=== PATIENT | female | born 1935 | race Caucasian/White ===

== ENCOUNTER 2016-09-01 14:06 | Inpatient (IN) | payer MEDICARE, MEDICAID ==
[~2016-09-01] VITALS: Ht 170.2 cm; Wt 74.8 kg
[~2016-09-01 14:06] MED LIST: BLOOD PRESSURE; PAIN MEDICATION
[2016-09-01] MEDS ORDERED: IV NS 0.9% 500 ML BAG IV ONE ×2 (14:30→16:00)
[2016-09-01] MEDS ORDERED: ACETAMINOPHEN 650 MG/SUPP.RECT RC ONE (14:30)
[2016-09-01] MEDS ORDERED: IV SET PRIMARY 1 EA INFUS.SET MC ONE (14:41)
[2016-09-01] MEDS ORDERED: IV NS 0.9% 500 ML IV ONE ×3 (14:41→16:22)
[2016-09-01 14:48] LABS: BASOPHILS # (AUTO) 0.1 /CMM (0.0-0.2); BASOPHILS % (AUTO) 1.1 % (0.0-2.0); DIFF TOTAL % 100 %; HEMATOCRIT 34 % (33-45); HEMOGLOBIN 11.1 g/dL (11.5-14.8); LYMPHOCYTES # (AUTO) 0.1 /CMM (0.8-4.8); LYMPHOCYTES % (AUTO) 0.9 % (20.0-44.0); MEAN CORPUSCULAR HEMOGLOBIN 28 PG (26.0-33.0); MEAN CORPUSCULAR HGB CONC 33 g/dl (31.0-36.0); MEAN CORPUSCULAR VOLUME 86 fL (82-100); MONOCYTES # (AUTO) 0.1 /CMM (0.1-1.30); MONOCYTES % (AUTO) 0.6 % (2.0-12.0); NEUTROPHILS # (AUTO) 12.1 /CMM (1.8-8.9); NEUTROPHILS % (AUTO) 97.4 % (43.0-81.0); PLATELET COUNT (AUTO) 274 /CMM (150-450); RED BLOOD CELL COUNT(AUTO) 3.96 MIL/uL (4.0-5.2); WHITE BLOOD COUNT (AUTO) 12.4 K/uL (4.3-11.0)
[2016-09-01 15:01] LABS: KETONES,URINE TRACE (NEGATIVE); LEUKOCYTE ESTERASE ,URINE NEGATIVE (NEGATIVE)
[2016-09-01 15:02] LABS: ADD UA MICROSCOPIC YES
[2016-09-01 15:06] LABS: TROPONIN I 0.062 ng/mL (0.00-0.056)
[2016-09-01 15:08] LABS: ADD URINE CULTURE NO; RBC,URINE 51-80 /HPF (0-2); WBC,URINE 0-2 /HPF (0-3)
[2016-09-01 15:09] LABS: INR 1.14 (0.87-1.13); PROTHROMBIN TIME 12.3 SECS (9.5-12.7)
[2016-09-01 15:14] LABS: ALBUMIN 2.8 g/dL (3.4-5.0); BILIRUBIN,DIRECT 0.1 mg/dL (0.0-0.2); BILIRUBIN,TOTAL 0.4 mg/dL (0.2-1.0); CALCIUM, SERUM 8.3 mg/dL (8.5-10.1); CREATININE 1.2 mg/dL (0.6-1.3); INDIRECT BILIRUBIN 0.3 mg/dL (0.0-1.1); POTASSIUM 3.3 mmol/L (3.5-5.1); TOTAL PROTEIN, SERUM 7.4 g/dL (6.4-8.2)
[2016-09-01 15:32] LABS: LACTIC ACID 1.2 mmol/L (0.4-2.0)
[2016-09-01] MEDS ORDERED: IV SET PRIMARY PUMP SET 1 EA INFUS.SET MC ONE ×2 (15:54→20:52)
[2016-09-01] MEDS ORDERED: PIPERACILLIN /TAZOBACTAM 3.375 G in IV D5W 50 ML IV ONE (16:00)
[2016-09-01] MEDS ORDERED: LEVOFLOXACIN 750 MG /D5W 150ML 150 ML IV ONE ×2 (16:00→16:22)
[2016-09-01] MEDS ORDERED: IV NS 0.9% 1,000 ML IV PRN (16:28)
[2016-09-01] MEDS ORDERED: MORPHINE SULFATE INJ 2 MG/ML DISP.SYRIN IV PRN (16:30)
[2016-09-01] MEDS ORDERED: Z GUARD REMEDY 2 OZ OINT TP PRN (16:30)
[2016-09-01] MEDS ORDERED: ACETAMINOPHEN 325 MG TABLET PO PRN (16:30)
[2016-09-01] MEDS ORDERED: ONDANSETRON HCL/PF 4 MG/2 ML VIAL IVP PRN (16:30)
[2016-09-01] MEDS ORDERED: PIPERACILLIN /TAZOBACTAM 3.375 G in IV D5W 50 ML IV SCH (18:00)
[2016-09-01] MEDS ORDERED: FEE PK DOSING 1 MIN EA MC ONE (18:51)
[2016-09-01 20:00] VITALS: BP 147/88
[2016-09-01] MEDS ORDERED: VANCOMYCIN 1 GM in IV D5W 250 ML IV ONE (20:00)
[2016-09-01] MEDS ORDERED: RISP1TAB PO (20:25)
[2016-09-01] MEDS ORDERED: IV NS 0.9% 1,000 ML ONE (20:52)
[2016-09-01] MEDS ORDERED: SECONDARY IV SET 1 EA INFUS.SET MC ONE (20:52)
[2016-09-01] MEDS ORDERED: ONDANSETRON HCL/PF 4 MG/2 ML VIAL IV PRN (21:00)
[2016-09-01] MEDS ORDERED: IV NS 0.9% 1,000 ML IV ONE (21:00)
[2016-09-01] MEDS ORDERED: LEVOFLOXACIN 500 MG /D5W 100ML 500 MG in PREMIX 1 EA IV SCH (21:00)
[2016-09-01 21:32] VITALS: BP 147/88
[2016-09-02] VITALS (9 sets, daily range): BP systolic 123–150; BP diastolic 65–79
[2016-09-02] MEDS ORDERED: PIPERACILLIN /TAZOBACTAM 2.25 G in IV D5W 50 ML IV SCH ×2
[2016-09-02] MEDS ORDERED: IPRATROPIUM NEB FS 0.5 MG/2.5 ML AMPUL.NEB NEB PRN (00:30)
[2016-09-02] MEDS ORDERED: ALBUTEROL FS 2.5 MG/0.5 ML VIAL.NEB NEB PRN (00:30)
[2016-09-02] MEDS ORDERED: LEVOFLOXACIN 500 MG /D5W 100ML 500 MG in PREMIX 1 EA IV SCH ×2 (06:00→16:00)
[2016-09-02 08:36] LABS: BASOPHILS % (AUTO) 0.1 % (0.0-2.0); DIFF TOTAL % 100 %; HEMATOCRIT 33 % (33-45); HEMOGLOBIN 10.9 g/dL (11.5-14.8); LYMPHOCYTES # (AUTO) 0.5 /CMM (0.8-4.8); LYMPHOCYTES % (AUTO) 3.5 % (20.0-44.0); MEAN CORPUSCULAR HEMOGLOBIN 29 PG (26.0-33.0); MEAN CORPUSCULAR HGB CONC 34 g/dl (31.0-36.0); MEAN CORPUSCULAR VOLUME 87 fL (82-100); MONOCYTES # (AUTO) 0.2 /CMM (0.1-1.30); MONOCYTES % (AUTO) 1.6 % (2.0-12.0); NEUTROPHILS # (AUTO) 14.7 /CMM (1.8-8.9); NEUTROPHILS % (AUTO) 94.8 % (43.0-81.0); PLATELET COUNT (AUTO) 240 /CMM (150-450); RED BLOOD CELL COUNT(AUTO) 3.78 MIL/uL (4.0-5.2); WHITE BLOOD COUNT (AUTO) 15.5 K/uL (4.3-11.0)
[2016-09-02] MEDS: PANTOPRAZOLE 40 MG TABLET.DR PO SCH (08:37)
[2016-09-02] MEDS: risperiDONE 1 MG TABLET PO SCH ×2 (08:37→18:11)
[2016-09-02] MEDS: LOSARTAN POTASSIUM 50 MG TABLET PO SCH (08:38)
[2016-09-02] MEDS: METOPROLOL TARTRATE 50 MG TABLET PO SCH ×2 (08:38→18:13)
[2016-09-02] MEDS: SOLIFENACIN SUCCINATE 5 MG TABLET PO SCH (08:38)
[2016-09-02] MEDS ORDERED: PANTOPRAZOLE 40 MG VIAL IV SCH (09:00)
[2016-09-02 09:28] LABS: BAND % (MANUAL) 20 % (0.0-5.0); LYMPHOCYTES % (MANUAL) 10 % (16-48)
[2016-09-02 09:29] LABS: PLATELET ESTIMATE ADEQUATE
[2016-09-02 10:53] LABS: CALCIUM, SERUM 8.4 mg/dL (8.5-10.1); CREATININE 1.2 mg/dL (0.6-1.3); PHOSPHORUS 2.8 mg/dL (2.5-4.9)
[2016-09-02 11:16] LABS: POTASSIUM 3.2 mmol/L (3.5-5.1)
[2016-09-02] MEDS ORDERED: SECONDARY IV SET 1 EA INFUS.SET MC ONE (13:27)
[2016-09-02] MEDS: Magnesium 1GM/D5W 100ML PREMIX 100 ML IV SCH ×2 (13:34→14:38)
[2016-09-02] MEDS: POTASSIUM CHLORIDE 20 MEQ TAB.PRT.SR PO SCH ×2 (13:34→14:37)
[2016-09-02] MEDS: VANCOMYCIN 0.75 GM in IV D5W 250 ML IV SCH (15:52)
[2016-09-02] MEDS ORDERED: IV NS 0.9% 1,000 ML BAG IV PRN (18:00)
[2016-09-02] MEDS ORDERED: Z GUARD REMEDY 2 OZ OINT TP PRN (19:30)
[2016-09-02] MEDS: IV NS 0.9% 1,000 ML IV PRN (23:27)
[2016-09-03] VITALS (7 sets, daily range): BP systolic 111–151; BP diastolic 62–84
[2016-09-03 07:41] LABS: POTASSIUM 3.4 mmol/L (3.5-5.1)
[2016-09-03] MEDS: LOSARTAN POTASSIUM 50 MG TABLET PO SCH (08:16)
[2016-09-03] MEDS: SOLIFENACIN SUCCINATE 5 MG TABLET PO SCH (08:16)
[2016-09-03] MEDS: PANTOPRAZOLE 40 MG TABLET.DR PO SCH (08:17)
[2016-09-03] MEDS: risperiDONE 1 MG TABLET PO SCH ×2 (08:17→16:11)
[2016-09-03] MEDS: METOPROLOL TARTRATE 50 MG TABLET PO SCH ×2 (08:17→16:10)
[2016-09-03] MEDS: VANCOMYCIN 0.75 GM in IV D5W 250 ML IV SCH ×2 (08:19→21:09)
[2016-09-03] MEDS ORDERED: Z GUARD REMEDY 2 OZ OINT TP PRN (10:30)
[2016-09-03] MEDS: CLOTRIMAZOLE 1% 15 GM TUBE TP SCH ×2 (11:50→16:11)
[2016-09-03] MEDS: IV NS 0.9% 1,000 ML IV PRN (12:16)
[2016-09-03] MEDS ORDERED: POTASSIUM CHLORIDE 20 MEQ POWDER PACKET PO SCH (13:00)
[2016-09-03 13:16] LABS: BASOPHILS % (AUTO) 0.2 % (0.0-2.0); DIFF TOTAL % 100 %; EOSINOPHILS % (AUTO) 0.2 % (0.0-6.0); HEMATOCRIT 28 % (33-45); HEMOGLOBIN 9.4 g/dL (11.5-14.8); LYMPHOCYTES # (AUTO) 0.6 /CMM (0.8-4.8); LYMPHOCYTES % (AUTO) 4.3 % (20.0-44.0); MEAN CORPUSCULAR HEMOGLOBIN 29 PG (26.0-33.0); MEAN CORPUSCULAR HGB CONC 34 g/dl (31.0-36.0); MEAN CORPUSCULAR VOLUME 86 fL (82-100); MONOCYTES # (AUTO) 0.3 /CMM (0.1-1.30); MONOCYTES % (AUTO) 2.3 % (2.0-12.0); NEUTROPHILS # (AUTO) 13.4 /CMM (1.8-8.9); PLATELET COUNT (AUTO) 249 /CMM (150-450); RED BLOOD CELL COUNT(AUTO) 3.25 MIL/uL (4.0-5.2); WHITE BLOOD COUNT (AUTO) 14.4 K/uL (4.3-11.0)
[2016-09-03] MEDS: ENOXAPARIN SODIUM 40 MG/0.4 ML DISP.SYRIN SQ SCH (14:34)
[2016-09-03] MEDS ORDERED: LEVOFLOXACIN 750 MG /D5W 150ML 750 MG in PREMIX 1 EA IV SCH (16:00)
[2016-09-03] MEDS ORDERED: SECONDARY IV SET 1 EA INFUS.SET MC ONE (16:11)
[2016-09-03] MEDS: Z GUARD REMEDY 2 OZ OINT TP SCH (16:12)
[2016-09-03] MEDS: ACETAMINOPHEN 325 MG TABLET PO PRN (16:14)
[2016-09-04] VITALS: BP 141/62
[2016-09-04 04:00] VITALS: BP 145/70
[2016-09-04] MEDS: IV NS 0.9% 1,000 ML IV PRN ×2 (04:34→20:17)
[2016-09-04 08:00] VITALS: BP 134/62
[2016-09-04 09:13] LABS: BASOPHILS # (AUTO) 0.1 /CMM (0.0-0.2); BASOPHILS % (AUTO) 0.9 % (0.0-2.0); DIFF TOTAL % 100 %; EOSINOPHILS # (AUTO) 0.1 /CMM (0.0-0.7); EOSINOPHILS % (AUTO) 0.8 % (0.0-6.0); HEMATOCRIT 27 % (33-45); HEMOGLOBIN 9.1 g/dL (11.5-14.8); LYMPHOCYTES # (AUTO) 0.6 /CMM (0.8-4.8); LYMPHOCYTES % (AUTO) 4.9 % (20.0-44.0); MEAN CORPUSCULAR HEMOGLOBIN 29 PG (26.0-33.0); MEAN CORPUSCULAR HGB CONC 34 g/dl (31.0-36.0); MEAN CORPUSCULAR VOLUME 86 fL (82-100); MONOCYTES # (AUTO) 0.4 /CMM (0.1-1.30); MONOCYTES % (AUTO) 3.5 % (2.0-12.0); NEUTROPHILS % (AUTO) 89.9 % (43.0-81.0); PLATELET COUNT (AUTO) 252 /CMM (150-450); RED BLOOD CELL COUNT(AUTO) 3.14 MIL/uL (4.0-5.2); WHITE BLOOD COUNT (AUTO) 12.3 K/uL (4.3-11.0)
[2016-09-04 09:37] LABS: CALCIUM, SERUM 7.9 mg/dL (8.5-10.1); PHOSPHORUS 2.3 mg/dL (2.5-4.9); POTASSIUM 3.6 mmol/L (3.5-5.1)
[2016-09-04] MEDS: ENOXAPARIN SODIUM 40 MG/0.4 ML DISP.SYRIN SQ SCH (10:04)
[2016-09-04] MEDS: SOLIFENACIN SUCCINATE 5 MG TABLET PO SCH (10:05)
[2016-09-04] MEDS: risperiDONE 1 MG TABLET PO SCH ×2 (10:05→17:48)
[2016-09-04] MEDS: LOSARTAN POTASSIUM 50 MG TABLET PO SCH (10:08)
[2016-09-04] MEDS: PANTOPRAZOLE 40 MG TABLET.DR PO SCH (10:08)
[2016-09-04] MEDS: METOPROLOL TARTRATE 50 MG TABLET PO SCH ×2 (10:09→17:53)
[2016-09-04] MEDS: VANCOMYCIN 0.75 GM in IV D5W 250 ML IV SCH ×2 (10:10→20:54)
[2016-09-04] MEDS: CLOTRIMAZOLE 1% 15 GM TUBE TP SCH ×2 (10:11→17:53)
[2016-09-04] MEDS: Z GUARD REMEDY 2 OZ OINT TP SCH ×2 (10:12→17:53)
[2016-09-04 15:27] VITALS: BP 123/79
[2016-09-04 16:00] VITALS: BP 148/86
[2016-09-04] MEDS ORDERED: NEUTRA PHOS 1 POWD.PACKET PO ONE (16:00)
[2016-09-04] MEDS: LACTOBACILLUS RHAMNOSUS GG 1 EACH CAP.SPRINK PO SCH (17:53)
[2016-09-04 20:00] VITALS: BP 144/70
[2016-09-05 07:35] LABS: BASOPHILS % (AUTO) 0.2 % (0.0-2.0); DIFF TOTAL % 100 %; EOSINOPHILS # (AUTO) 0.1 /CMM (0.0-0.7); EOSINOPHILS % (AUTO) 1.5 % (0.0-6.0); HEMATOCRIT 27 % (33-45); HEMOGLOBIN 8.9 g/dL (11.5-14.8); LYMPHOCYTES # (AUTO) 0.7 /CMM (0.8-4.8); LYMPHOCYTES % (AUTO) 7.6 % (20.0-44.0); MEAN CORPUSCULAR HEMOGLOBIN 29 PG (26.0-33.0); MEAN CORPUSCULAR HGB CONC 34 g/dl (31.0-36.0); MEAN CORPUSCULAR VOLUME 86 fL (82-100); MONOCYTES # (AUTO) 0.7 /CMM (0.1-1.30); MONOCYTES % (AUTO) 7.4 % (2.0-12.0); NEUTROPHILS # (AUTO) 7.3 /CMM (1.8-8.9); NEUTROPHILS % (AUTO) 83.3 % (43.0-81.0); PLATELET COUNT (AUTO) 242 /CMM (150-450); RED BLOOD CELL COUNT(AUTO) 3.09 MIL/uL (4.0-5.2); WHITE BLOOD COUNT (AUTO) 8.8 K/uL (4.3-11.0)
[2016-09-05 08:06] LABS: CALCIUM, SERUM 7.7 mg/dL (8.5-10.1); CREATININE 0.9 mg/dL (0.6-1.3); PHOSPHORUS 3.1 mg/dL (2.5-4.9); POTASSIUM 3.3 mmol/L (3.5-5.1)
[2016-09-05 08:30] VITALS: BP 149/92
[2016-09-05 08:34] VITALS: BP 149/92
[2016-09-05] MEDS: LACTOBACILLUS RHAMNOSUS GG 1 EACH CAP.SPRINK PO SCH (08:34)
[2016-09-05] MEDS: risperiDONE 1 MG TABLET PO SCH (08:34)
[2016-09-05] MEDS: ACETAMINOPHEN 325 MG TABLET PO PRN (08:34)
[2016-09-05] MEDS: SOLIFENACIN SUCCINATE 5 MG TABLET PO SCH (08:34)
[2016-09-05] MEDS: PANTOPRAZOLE 40 MG TABLET.DR PO SCH (08:34)
[2016-09-05] MEDS: LOSARTAN POTASSIUM 50 MG TABLET PO SCH (08:34)
[2016-09-05] MEDS: METOPROLOL TARTRATE 50 MG TABLET PO SCH (08:34)
[2016-09-05] MEDS: CLOTRIMAZOLE 1% 15 GM TUBE TP SCH (08:35)
[2016-09-05] MEDS: Z GUARD REMEDY 2 OZ OINT TP SCH (08:35)
[2016-09-05] MEDS: ENOXAPARIN SODIUM 40 MG/0.4 ML DISP.SYRIN SQ SCH (08:36)
[2016-09-05] MEDS: VANCOMYCIN 0.75 GM in IV D5W 250 ML IV SCH (08:38)
[2016-09-05] MEDS ORDERED: POTASSIUM CHLORIDE 20 MEQ TAB.PRT.SR PO SCH (12:00)
[2016-09-05] MEDS ORDERED: Magnesium 1GM/D5W 100ML PREMIX 100 ML IV SCH (13:00)
== END 2016-09-05 13:28 | DRG 871 ==
LOC: ER 14:07 → TELE 18:43 → MED 09-05 00:49 → TELE 09-05 00:54 → MED 09-05 01:54 → TELE 09-05 02:14
PROVIDERS: ADMIT Internal Medicine; ATTEND Internal Medicine
PROC: 05H533Z Insertion of Infusion Device into Right Subclavian Vein, Percutaneous Approach (ICD-10-PCS; principal; 2016-09-02)
DX: A41.9 Sepsis, unspecified organism (principal); J18.9 Pneumonia, unspecified organism; R65.20 Severe sepsis without septic shock; E87.6 Hypokalemia; I10 Essential (primary) hypertension; K21.9 Gastro-esophageal reflux disease without esophagitis; S20.411A Abrasion of right back wall of thorax, initial encounter; X58.XXXA Exposure to other specified factors, initial encounter; Y93.9 Activity, unspecified; Y92.89 Other specified places as the place of occurrence of the external cause; Y99.9 Unspecified external cause status; L98.9 Disorder of the skin and subcutaneous tissue, unspecified; R78.89 Finding of other specified substances, not normally found in blood; I48.91 Unspecified atrial fibrillation; F03.90 Unspecified dementia, unspecified severity, without behavioral disturbance, psychotic disturbance, mood disturbance, and anxiety
CPT/HCPCS: 36415; 71010-TC; 80048-TC; 80076-TC; 80202-TC; 81000-TC; 83605-TC; 83735-TC; 84100-TC; 84484-TC; 85025-TC; 85730-TC; 87040-TC; 87081-TC; 87086-TC; 87400; 92521; A4216; A4606; J1650; J1956; J2543; J3370; J3475; J7030; J7040; J7060; Z7610

== ENCOUNTER 2017-02-10 07:09 | Inpatient (IN) | payer MEDICAID, MEDICARE ==
[~2017-02-10] VITALS: Ht 167.6 cm; Wt 65.3 kg
[~2017-02-10 07:09] MED LIST changes: +RISP1TAB7 PO
--- NOTE | 2017-02-10 07:09 | NUR ---
BIB [facility] FROM [facility], ALTERED,LOW O2 SAT(88%),HOT TO TOUCH. BS 156 IN FIELD. RECTAL TEMP NOTED AT 103.1. DR MAN AT BEDSIDE. PT PLACED IN GOWN AND MONITOR. IV STARTED ON RIGHT WRIST 18, PATENT AND FLUSHING WELL, LAB AT BEDSIDE. CONTINUE TO MONITOR.
[2017-02-10] MEDS ORDERED: ACETAMINOPHEN 650 MG/SUPP.RECT RC ONE ×2 (07:17→07:30)
[2017-02-10] MEDS ORDERED: LEVOFLOXACIN 750 MG /D5W 150ML 150 ML IV ONE ×2 (07:18→07:30)
[2017-02-10] MEDS ORDERED: IV SET PRIMARY PUMP SET 1 EA INFUS.SET MC ONE ×4 (07:18→15:29)
[2017-02-10] MEDS ORDERED: IV NS 0.9% 2,000 ML ONE (07:18)
[2017-02-10] MEDS ORDERED: IV SET PRIMARY 1 EA INFUS.SET MC ONE (07:18)
[2017-02-10] MEDS ORDERED: SECONDARY IV SET 1 EA INFUS.SET MC ONE (07:26)
--- NOTE | 2017-02-10 07:28 | NUR ---
CALLED PHARM FOR VANCO AND ZOSYN IVPB.
[2017-02-10] MEDS ORDERED: PIPERACILLIN /TAZOBACTAM 3.375 G in IV D5W 50 ML IV ONE (07:30)
[2017-02-10] MEDS ORDERED: VANCOMYCIN 1 GM in IV D5W 250 ML IV ONE (07:30)
[2017-02-10] MEDS ORDERED: IV NS 0.9% 1,000 ML BAG IV ONE (07:30)
[2017-02-10 07:47] LABS: BASOPHILS % (AUTO) 0.2 % (0.0-2.0); HEMATOCRIT 35 % (33-45); HEMOGLOBIN 11.8 g/dL (11.5-14.8); LYMPHOCYTES # (AUTO) 1.2 /CMM (0.8-4.8); LYMPHOCYTES % (AUTO) 7.8 % (20.0-44.0); MEAN CORPUSCULAR HEMOGLOBIN 29 PG (26.0-33.0); MEAN CORPUSCULAR HGB CONC 34 g/dl (31.0-36.0); MEAN CORPUSCULAR VOLUME 87 fL (82-100); MONOCYTES # (AUTO) 0.7 /CMM (0.1-1.30); MONOCYTES % (AUTO) 4.9 % (2.0-12.0); NEUTROPHILS # (AUTO) 13.1 /CMM (1.8-8.9); NEUTROPHILS % (AUTO) 87.1 % (43.0-81.0); PLATELET COUNT (AUTO) 308 /CMM (150-450); RDW COEFFICIENT OF VARIATION 13.3 (11.5-15.0); RED BLOOD CELL COUNT(AUTO) 4.06 MIL/uL (4.0-5.2)
[2017-02-10] MEDS ORDERED: LORA1TAB82 PO (07:52)
[2017-02-10] MEDS ORDERED: METO-304 PO (07:52)
[2017-02-10] MEDS ORDERED: HYDR-4076 PO (07:52)
[2017-02-10] MEDS ORDERED: LOSA100T15 PO (07:52)
[2017-02-10] MEDS ORDERED: FERR-58 PO (07:52)
[2017-02-10] MEDS ORDERED: MAGN400O6 PO (07:52)
[2017-02-10] MEDS ORDERED: NA P133E RC (07:52)
[2017-02-10] MEDS ORDERED: PANT40TA2 PO (07:52)
[2017-02-10] MEDS ORDERED: AMLO5TAB2 PO (07:52)
[2017-02-10] MEDS ORDERED: LEVO50TA8 PO (07:52)
[2017-02-10] MEDS ORDERED: RISP1TAB27 PO (07:52)
[2017-02-10] MEDS ORDERED: ACET-868 PO (07:52)
[2017-02-10] MEDS ORDERED: VIT1CAPS32 PO (07:52)
[2017-02-10] MEDS ORDERED: FAMO-131 PO (07:52)
[2017-02-10 08:05] LABS: ALANINE AMINOTRANSFERASE 57 U/L (12-78); ALBUMIN 2.5 g/dL (3.4-5.0); ALKALINE PHOSPHATASE 76 U/L (46-116); ASPARTATE AMINOTRANSFERASE 65 U/L (15-37); BILIRUBIN,DIRECT 0.1 mg/dL (0.0-0.2); BILIRUBIN,TOTAL 0.5 mg/dL (0.2-1.0); CARBON DIOXIDE 25 mmol/L (21-32); CHLORIDE 116 mmol/L (98-107); CREATININE 1.8 mg/dL (0.6-1.3); GLUCOSE 139 mg/dL (74-106); INR 1.06 (0.87-1.13); POTASSIUM 4.3 mmol/L (3.5-5.1); PROTHROMBIN TIME 11.4 SECS (9.5-12.7); SODIUM SERUM 154 mmol/L (136-145); TROPONIN I 0.064 ng/mL (0.00-0.056)
--- NOTE | 2017-02-10 08:09 | NUR ---
PT TO CT
--- NOTE | 2017-02-10 08:13 | NUR ---
CALLED [facility] DR CAROLYN HOYOS INSURANCE BILLER PAGED
[2017-02-10 08:16] LABS: UREA NITROGEN, BLOOD 92 mg/dL (7-18)
--- NOTE | 2017-02-10 09:11 | NUR ---
TRANSFER TO FLOOR BY CHASE KUMAR AND EMT,ACLS PROTOCOL
--- NOTE | 2017-02-10 10:16 | NUR ---
SKATING CARHOP ADMITTING NOTES PATIENT ADMITTED TO UNIT [facility] AT 0920H ACCOMPANIED BY ER NURSE. OPENS HER EYES TO TACTILE STIMULI. TRANSFERRED TO BED COMFORTABLY. PATIENT WITH DIAGNOSIS OF AMS AND SEPSIS PROBABLY FROM UTI WITH HX OF HTN, DEMENTIA, GERD, OVER-ACTIVE BLADDER, CATARACTS AND BACK PAIN. PATIENT PLACED ON TELE-MONITORING WITH READING OF SINUS TACHYCARDIA WITH HR ON THE 90'S, NO SIGNS OF CHEST PAIN OBSERVED. PATIENT ON 02 VIA N/C AT 2LPM, NO SOB NOTED WITH SP02 OF 94% NOTED. PATIENT DRY, WARM TO TOUCH BUT AFEBRILE WITH TEMP OF 98.6F. PHOTOS OF SKIN WOUNDS AND DISCOLORATIONS TAKEN AND FILED ON CHART. PATIENT WITH PERIPHERAL IV LINES ON RIGHT HAND G18 AND LEFT HAND G 18, BOTH INTACT AND PATENT. DR HOYOS SEEN, EVALUATED AND PUT ALL ORDERS FOR PT. FRANSICO COKER CAME AND EVALUATED WOUNDS OF PATIENT. CALL LIGHT PLACED WITHIN REACH. BED PLACED AT LOWEST POSSIBLE POSITION, LOCKED WITH SIDE-RAILS UP X2. ALL SAFETY PRECAUTIONS MAINTAINED. WILL CONTINUE TO MONITOR ACCORDINGLY.
[2017-02-10] MEDS ORDERED: ONDANSETRON HCL/PF 4 MG/2 ML VIAL IV PRN (11:00)
[2017-02-10] MEDS ORDERED: CEFTRIAXONE 1 G in IV D5W 50 ML IV SCH (11:00)
--- NOTE | 2017-02-10 11:32 | NUR ---
RN NOTES PATIENT EVALUATED BY ST FOR SWALLOWING EVALUATION. SOFT DIET WAS CHANGED TO FULL LIQUIDS PT HAD HARD TIME CHEWING AND SWALLOWING FOOD. WILL CONTINUE TO MONITOR.
[2017-02-10 12:00] VITALS: BP 109/57
[2017-02-10] MEDS ORDERED: MAGNESIUM HYDROXIDE 30 ML UDC PO PRN (12:00)
[2017-02-10] MEDS ORDERED: LORAZEPAM 1 MG TABLET PO PRN (12:00)
[2017-02-10] MEDS: hydrALAZINE HCL 25 MG TABLET PO SCH ×2 (13:00→17:46)
[2017-02-10] MEDS: IV 1/2NS 1000 ML 1,000 ML IV PRN (15:34)
[2017-02-10 16:00] VITALS: BP 116/61
--- NOTE | 2017-02-10 16:51 | NUR ---
RN NOTES URINE SPECIMEN COLLECTED FOR URINALYSIS AND CULTURE. WOUND SPECIMEN COLLECTED FROM SACRAL WOUND. CALLED LAB TO PICK-UP SPECIMENS. WILL FOLLOW-UP RESULTS.
[2017-02-10 16:52] VITALS: BP 116/61
[2017-02-10] MEDS ORDERED: FEE PK DOSING 1 MIN EA MC ONE (17:41)
[2017-02-10] MEDS: risperiDONE 1 MG TABLET PO SCH (17:46)
[2017-02-10] MEDS: FAMOTIDINE (20 MG) 20 MG TABLET PO SCH (17:47)
[2017-02-10] MEDS: AMLODIPINE BESYLATE 5 MG TABLET PO SCH (17:47)
[2017-02-10] MEDS: BOOST PLUS FOOD-VANILLA 237 ML BOX PO SCH (17:58)
--- NOTE | 2017-02-10 19:00 | NUR ---
BUCKET TURNER CLOSING NOTES PATIENT RESTING IN BED ALERT, NON-VERBAL ,OPENS HER EYES TO TACTILE AND VERBAL STIMULI. ON SUPPLEMENTAL 02 VIA N/C AT 2LPM, NO SOB NOTED. ON TELE-MONITORING WITH CURRENT READING OF SR WITH PVC'S AND HR OF 71. IV ACCESS ON RIGHT AC G# 20 INTACT AND PATENT, IVF OF 1/2 NS @ 75ML/HR INFUSING WELL, NO S/S OF INFILTRATION OR REDNESS NOTED AT IV SITE. WEI G#16 IN PLACED AND ACTIVELY DRAINING CLEAR GAMAL COLORED URINE TO DRAINAGE BAG. ALL NEEDS AND CARE PROVIDED WELL. DUE MEDS GIVEN ORDERED AND TOLERATED. CALL LIGHT WITHIN REACH. BED LOW AND LOCKED. WILL ENDORSED TO APPLIED BIOLOGY PROFESSOR FOR DAVID.
[2017-02-10 19:08] LABS: APPEARANCE,URINE CLEAR (CLEAR); BILIRUBIN,URINE NEGATIVE (NEGATIVE); BLOOD, URINE 1+ Ery/uL (NEGATIVE); COLOR,URINE YELLOW (YELLOW); KETONES,URINE NEGATIVE (NEGATIVE); LEUKOCYTE ESTERASE ,URINE NEGATIVE (NEGATIVE); NITRITE, URINE NEGATIVE (NEGATIVE); PH,URINE 5.5 (5.0-8.0); PROTEIN,URINE NEGATIVE (NEGATIVE); UGLUCOSE NEGATIVE (NEGATIVE); UROBILINOGEN,URINE 0.2 EU/dL (0.2)
[2017-02-10 19:39] LABS: BACTERIA,URINE Few /HPF (None Seen); SQUAMOUS EPITHELIAL CELL,UR Few /HPF (None Seen)
[2017-02-10 20:00] VITALS: BP 101/49
--- NOTE | 2017-02-10 20:00 | NUR ---
RN NOTES RECEIVED PX AWAKE, WITH GARBLED VERBAL RESPONSE NOT FOLLOWING COMMANDS; ON NC AT 2 LPM; RESP UNLABORED AND EVEN; 2 PIV'S FLUSHED PATENT INTACT; WITH WEI CATH TAPED TO THIGHT TO BAG BY GRAVITY; HEELS OFFLOADED, DIAPER ON; MULTIPLE SKIN ISSUES (SEE SKIN FLOWSHEET); HOB AT 30 ANGLE, REPOSITIONED TO THE RIGHT; ST ON MONITOR; HAD 1 BM, CLEANED PX AND CHANGED GOWN AND BED LINENS; CHANGED MEPILEX DRESSING ON THE SACRAL AREA; DISCUSSED PLAN OF CARE.
[2017-02-10] MEDS: HEPARIN SODIUM, PORCINE 5000 UNITS/1 ML VIAL SQ SCH (20:14)
[2017-02-11] VITALS (7 sets, daily range): BP systolic 104–144; BP diastolic 53–63
[2017-02-11] MEDS: IV 1/2NS 1000 ML 1,000 ML IV PRN (04:58)
--- NOTE | 2017-02-11 06:45 | NUR ---
RN NOTES CONDITION AND NEURO STATUS UNCHANGED; CLEANED PX AND CHANGED GOWN AND BED LINENS, CHANGED DIAPER AND DRESSINGS PER MD ORDER, PROCEDURES TOLERATED, NO NEW SKIN BREAKDOWN NOTED; WEI CARE RENDERED; DURING BATHING, NOTED HR WENT UP TO 150'S FOR LESS THAN 1 MINUTES BUT WENT BACK DOWN TO 90'S TO 110'S, BP WNL, NEURO STATUS UNCHANGED; REPOSITIONED. WILL ENDORSE TO NEXT RN.
[2017-02-11 06:52] LABS: EOSINOPHILS % (AUTO) 0.1 % (0.0-6.0); HEMATOCRIT 32 % (33-45); HEMOGLOBIN 10.6 g/dL (11.5-14.8); LYMPHOCYTES # (AUTO) 0.8 /CMM (0.8-4.8); LYMPHOCYTES % (AUTO) 4.7 % (20.0-44.0); MEAN CORPUSCULAR HEMOGLOBIN 29 PG (26.0-33.0); MEAN CORPUSCULAR HGB CONC 33 g/dl (31.0-36.0); MEAN CORPUSCULAR VOLUME 88 fL (82-100); MONOCYTES # (AUTO) 0.5 /CMM (0.1-1.30); MONOCYTES % (AUTO) 2.7 % (2.0-12.0); NEUTROPHILS # (AUTO) 15.8 /CMM (1.8-8.9); NEUTROPHILS % (AUTO) 92.5 % (43.0-81.0); PLATELET COUNT (AUTO) 265 /CMM (150-450); RDW COEFFICIENT OF VARIATION 13.4 (11.5-15.0); RED BLOOD CELL COUNT(AUTO) 3.62 MIL/uL (4.0-5.2); WHITE BLOOD COUNT (AUTO) 17.1 K/uL (4.3-11.0)
[2017-02-11 07:22] LABS: CALCIUM, SERUM 8.6 mg/dL (8.5-10.1); CARBON DIOXIDE 23 mmol/L (21-32); CHLORIDE 121 mmol/L (98-107); CREATININE 1.1 mg/dL (0.6-1.3); GLUCOSE 141 mg/dL (74-106); MAGNESIUM 2.6 mg/dL (1.8-2.4); PHOSPHORUS 3.2 mg/dL (2.5-4.9); POTASSIUM 3.4 mmol/L (3.5-5.1); UREA NITROGEN, BLOOD 67 mg/dL (7-18)
[2017-02-11 07:46] LABS: SODIUM SERUM 156 mmol/L (136-145)
--- NOTE | 2017-02-11 07:53 | NUR ---
MANAGER SPANISH OPENING NOTES RECEIVED PATIENT ON BED AWAKE, NON VERBAL, NOT FOLLOWING COMMANDS. ON NC AT 2 LPM. RESP UNLABORED AND EVEN. IV SITE PATENT AND INTACT. WEI CATHETER IN PLACE. MULTIPLE SKIN ISSUES (SEE SKIN FLOWSHEET). TELEMETRY ST 111. BED IN LOWEST POSITION, SEMIFOWLERS. SIDE RAILS UP. CALL LIGHT WITHIN REACH. WILL CONTINUE TO MONITOR.
[2017-02-11] MEDS ORDERED: VANCOMYCIN 0.75 GM in IV D5W 250 ML IV SCH (08:00)
[2017-02-11] MEDS: BOOST PLUS FOOD-VANILLA 237 ML BOX PO SCH ×2 (08:00→17:00)
[2017-02-11] MEDS: risperiDONE 1 MG TABLET PO SCH ×2 (08:59→17:13)
[2017-02-11] MEDS: LEVOTHYROXINE SODIUM 50 MCG TABLET PO SCH (08:59)
[2017-02-11] MEDS: METOPROLOL SUCCINATE 50 MG TAB.SR.24H PO SCH (09:01)
[2017-02-11] MEDS: FAMOTIDINE (20 MG) 20 MG TABLET PO SCH ×2 (09:02→17:13)
[2017-02-11] MEDS: hydrALAZINE HCL 25 MG TABLET PO SCH ×3 (09:02→17:14)
[2017-02-11] MEDS: CADEXOMER IODINE 40 GM TUBE TP SCH (09:03)
[2017-02-11] MEDS: FERROUS SULFATE (325 MG) 325 MG/TAB TABLET PO SCH (09:03)
[2017-02-11] MEDS: AMLODIPINE BESYLATE 5 MG TABLET PO SCH ×2 (09:03→17:14)
[2017-02-11] MEDS: HEPARIN SODIUM, PORCINE 5000 UNITS/1 ML VIAL SQ SCH ×2 (09:37→21:03)
[2017-02-11] MEDS ORDERED: IV SET PRIMARY PUMP SET 1 EA INFUS.SET MC ONE (09:42)
--- NOTE | 2017-02-11 09:45 | NUR ---
WOUND CARE CONSULT: PT PRESENTS WITH MULTIPLE DEEP TISSUE INJURIES (INTACT) AND UNSTAGEABLE SACRAL ULCER, PRESENT ON ADMISSION. SOME GENERALIZED EDEMA NOTED. PT SEEN PREVIOUSLY BY SURGICAL TEAM AND ORDERS WRITTEN FOR WOUND CARE. PT ON MARY ISOFLEX LOW AIRLOSS BED. ALL SKIN PROTECTION MEASURES IN PLACE AND DISCUSSED WITH NURSING STAFF. WILL SEE PRN. GUERRA IN AGREEMENT WITH PLAN OF CARE. Addendum: 02/11/17 at 0947 by CUCA ADAMS WNDNU Amended: Links added.
[2017-02-11] MEDS ORDERED: SECONDARY IV SET 1 EA INFUS.SET MC ONE ×2 (09:59→12:18)
[2017-02-11] MEDS ORDERED: Z GUARD REMEDY 2 OZ OINT TP PRN (10:00)
[2017-02-11] MEDS: Z GUARD REMEDY 2 OZ OINT TP SCH (10:19)
[2017-02-11] MEDS ORDERED: CEFTRIAXONE 1 G in IV D5W 50 ML IV SCH (11:00)
[2017-02-11] MEDS ORDERED: POTASSIUM CHLORIDE 20 MEQ TAB.PRT.SR PO ONE (11:00)
[2017-02-11] MEDS ORDERED: PIPERACILLIN /TAZOBACTAM 3.375 G in IV D5W 50 ML IV SCH (12:00)
[2017-02-11] MEDS ORDERED: POTASSIUM CHLORIDE 20 MEQ POWDER PACKET PO ONE (12:00)
--- NOTE | 2017-02-11 12:00 | NUR ---
DR CAROLYN HOYOS CAME TO SEE PATIENT AND MADE AWARE REGARDING SODIUM 156.
[2017-02-11] MEDS: PIPERACILLIN /TAZOBACTAM 2.25 G in IV D5W 50 ML IV SCH ×3 (12:16→23:04)
[2017-02-11] MEDS: IV D5W 1,000 ML IV PRN (14:14)
--- NOTE | 2017-02-11 16:10 | NUR ---
Seen by the Dx Board Operator and updated on pt's condition with orders to increase Boost to TID.
[2017-02-11] MEDS: LACTOBACILLUS RHAMNOSUS GG 1 EACH CAP.SPRINK PO SCH (17:13)
--- NOTE | 2017-02-11 17:40 | NUR ---
CHECKED PT'S TEMPERATURE 102.5 ORAL.COOLING MEASURES AND WILL INFORM MD CLEAN RICE GRADER AND REEL TENDER.
--- NOTE | 2017-02-11 17:52 | NUR ---
PAGED DR LANDA AND AWAITING TO RETURN CALL.BLOOD C/S X2 DONE AND COOLING MEASURES INITIATED.WILL GIVE TYLENOL 650 MG PO.WILL MONITOR.
[2017-02-11] MEDS: ACETAMINOPHEN 325 MG TABLET PO PRN (17:57)
--- NOTE | 2017-02-11 18:39 | NUR ---
PAGED DR LANDA SECOND TIME AND MADE HIM AWARE OF PT'S FEVER OF T 102.5 EARLIER AT 1735.WITH ORDERS FOR BLOOD C/S X2 DONE 15 MINS APART.TYLENOL 650 MG PO GIVEN WITH COOLING MEASURES APPLIED.ENCOURAGED THICKENED FULL LIQUIDS WITH ASPIRATION PRECAUTIONS AND FREQUENT COACHING DONE TO SWALLOW.UPDATED ON PT'S LATEST TEMP WHICH IS T 98.6.DR LANDA STATED THAT THE PT IS ALREADY ON IV ATBS.WILL CONTINUE TO MONITOR AND NO NEW ORDER.
--- NOTE | 2017-02-11 18:45 | NUR ---
RN CLOSING NOTES PT ON BED RESTING. NO ACUTE DISTRESS NOTED. BED IN LOW POSITION, SEMIFOWLERS. SIDE RAILS UP X2. CALL LIGHT WITHIN REACH. ENDORSED TO WINDING RACK OPERATOR NURSE FOR CONTINUITY OF CARE.
--- NOTE | 2017-02-11 19:35 | NUR ---
PAINTER NOTE RECEIVED PATIENT FROM DAY SHIFT, PATIENT IS NON-VERBAL, FLAT MOOD, NO S/S OF RESPIRATORY DISTRESS, RESTING IN BED. IV ON LEFT HAND 18G, RIGHT HANDS ARE PATENT AND INTACT, FLUID IS RUNNING. TELE MONITOR 120 PAC'S. SRX2, BED IN LOW POSITION, CALL LIGHT WITHIN REACH, WILL CONTINUE TO MONITOR PATIENT.
[2017-02-12] VITALS (28 sets, daily range): BP systolic 89–139; BP diastolic 44–67
[2017-02-12] MEDS: VANCOMYCIN 1 GM in IV D5W 250 ML IV SCH ×2 (00:03→23:55)
--- NOTE | 2017-02-12 00:45 | NUR ---
MIGRATORY GAME BIRD BIOLOGIST NOTE PATIENT WAS DESATURATING TO 85% WITH NC 3L. DR. AMATO WAS ON THE FLOOR, ASKED FOR HIS RECOMMENDATION, AND ORDERED STAT CXR FOR POSS. FLUID OVERLOAD. CONTACTED DR. LANDA WELL, EXPLAINED THE PATIENT'S SITUATION, HE MADE AWARE OF STAT CXR ORDER BY DR. AMATO, AND ORDERED LASIX 40MG IVP ONCE. WILL CONTINUE TO MONITOR.
[2017-02-12] MEDS ORDERED: FUROSEMIDE 40 MG/4 ML VIAL ONE (00:46)
[2017-02-12] MEDS ORDERED: FUROSEMIDE 40 MG/4 ML VIAL IV ONE (01:00)
--- NOTE | 2017-02-12 03:27 | NUR ---
SUPERVISOR SINTERING PLANT NOTE AT 0000, PATIENT'S TEMP WAS 100.2F, COOLING MEASURES INITIATED. RECHECK TEMP WAS 97.6F, AXILLA AT 0325.
[2017-02-12] MEDS: PIPERACILLIN /TAZOBACTAM 2.25 G in IV D5W 50 ML IV SCH ×4 (05:38→23:47)
--- NOTE | 2017-02-12 06:44 | NUR ---
TARRING MACHINE OPERATOR NOTE PATIENT IS RESTING IN BED, NO FACIAL GRIMACE NOTED. STILL PUTTING A SIMPLE MASK FOR DESATURATING TO 80%'S. TELE MONITOR AFIB 117. WILL ENDORSE TO DAY SHIFT FOR DAVID.
--- NOTE | 2017-02-12 08:00 | NUR ---
SOCIAL WELFARE ADMINISTRATOR AM NOTES RECEIVED PATIENT ON BED AWAKE, VERBALLY RESPONSIVE WITH GARBLED SPEECH,ON O2 AT 5 LPM VIA MASK.O2 SAT 90-93% RESP UNLABORED AND EVEN. IV SITE TO BILATERAL HANDS PATENT AND INTACT. WEI CATHETER IN PLACE DRAINING YELLOW GAMAL URINE OUTPUT. WITH MULTIPLE SKIN ISSUES (SEE SKIN FLOWSHEET). TELEMETRY ST 111. BED IN LOWEST POSITION, IN SEMIFOWLERS.WITH ASPIRATION PRECAUTIONS.ON FULL LIQUIDS WITH THICKENED LIQUIDS.COACHED PT TO SWALLOW FREQUENTLY DURING MEALS.PT DROOLS ON THE SIDE.KEPT CLEAN AND DRY.SEEN BY S.T FOR FOLLOW UP.SEEN BY DR CAROLYN HOYOS WELL AND AWARE OF PT'S O2 DESATURATIONS RANGING 85-94% WITH O2 MASK AT 5 L/MIN .SIDE RAILS UP. CALL LIGHT WITHIN REACH.TURNED AND REPOSITIONED EVERY TWO HRS.TX ONGOING AND DONE ORDERED. WILL CONTINUE TO MONITOR.
[2017-02-12] MEDS: LEVOTHYROXINE SODIUM 50 MCG TABLET PO SCH (08:31)
[2017-02-12] MEDS: LACTOBACILLUS RHAMNOSUS GG 1 EACH CAP.SPRINK PO SCH ×2 (08:32→17:51)
[2017-02-12] MEDS: risperiDONE 1 MG TABLET PO SCH ×2 (08:32→17:51)
[2017-02-12] MEDS: METOPROLOL SUCCINATE 50 MG TAB.SR.24H PO SCH (08:34)
[2017-02-12] MEDS: FERROUS SULFATE (325 MG) 325 MG/TAB TABLET PO SCH (08:37)
[2017-02-12] MEDS: AMLODIPINE BESYLATE 5 MG TABLET PO SCH ×2 (08:37→17:00)
[2017-02-12] MEDS: FAMOTIDINE (20 MG) 20 MG TABLET PO SCH ×2 (08:38→17:52)
[2017-02-12] MEDS: hydrALAZINE HCL 25 MG TABLET PO SCH ×3 (08:39→17:00)
[2017-02-12] MEDS: HEPARIN SODIUM, PORCINE 5000 UNITS/1 ML VIAL SQ SCH (08:46)
[2017-02-12] MEDS: BOOST PLUS FOOD-VANILLA 237 ML BOX PO SCH ×3 (08:47→17:00)
[2017-02-12 08:50] LABS: HEMATOCRIT 34 % (33-45); HEMOGLOBIN 11.4 g/dL (11.5-14.8); LYMPHOCYTES # (AUTO) 0.5 /CMM (0.8-4.8); LYMPHOCYTES % (AUTO) 2.1 % (20.0-44.0); MEAN CORPUSCULAR HEMOGLOBIN 29 PG (26.0-33.0); MEAN CORPUSCULAR HGB CONC 33 g/dl (31.0-36.0); MEAN CORPUSCULAR VOLUME 87 fL (82-100); MONOCYTES # (AUTO) 0.3 /CMM (0.1-1.30); MONOCYTES % (AUTO) 1.4 % (2.0-12.0); NEUTROPHILS # (AUTO) 20.7 /CMM (1.8-8.9); NEUTROPHILS % (AUTO) 96.5 % (43.0-81.0); PLATELET COUNT (AUTO) 288 /CMM (150-450); RDW COEFFICIENT OF VARIATION 13.3 (11.5-15.0); RED BLOOD CELL COUNT(AUTO) 3.91 MIL/uL (4.0-5.2); WHITE BLOOD COUNT (AUTO) 21.5 K/uL (4.3-11.0)
[2017-02-12] MEDS: Z GUARD REMEDY 2 OZ OINT TP SCH (09:09)
[2017-02-12] MEDS: CADEXOMER IODINE 40 GM TUBE TP SCH (09:09)
[2017-02-12 09:20] LABS: CALCIUM, SERUM 8.6 mg/dL (8.5-10.1); CARBON DIOXIDE 24 mmol/L (21-32); CHLORIDE 117 mmol/L (98-107); CREATININE 1.3 mg/dL (0.6-1.3); GLUCOSE 176 mg/dL (74-106); MAGNESIUM 2.3 mg/dL (1.8-2.4); PHOSPHORUS 3.1 mg/dL (2.5-4.9); SODIUM SERUM 155 mmol/L (136-145); UREA NITROGEN, BLOOD 51 mg/dL (7-18)
[2017-02-12 10:08] LABS: APPEARANCE,URINE CLEAR (CLEAR); BILIRUBIN,URINE NEGATIVE (NEGATIVE); BLOOD, URINE NEGATIVE Ery/uL (NEGATIVE); COLOR,URINE YELLOW (YELLOW); KETONES,URINE NEGATIVE (NEGATIVE); LEUKOCYTE ESTERASE ,URINE NEGATIVE (NEGATIVE); NITRITE, URINE NEGATIVE (NEGATIVE); PH,URINE 5.5 (5.0-8.0); PROTEIN,URINE NEGATIVE (NEGATIVE); UGLUCOSE NEGATIVE (NEGATIVE); UROBILINOGEN,URINE 0.2 EU/dL (0.2)
[2017-02-12] MEDS ORDERED: BISACODYL SUPP (10 MG) 10 MG/SUPP.RECT SUPP.RECT RC PRN (10:30)
[2017-02-12] MEDS ORDERED: METOPROLOL SUCCINATE 25 MG TAB.SR.24H PO ONE (10:30)
--- NOTE | 2017-02-12 10:50 | NUR ---
DR HAILE (RADIOLOGIST)CALLED WITH CT CHEST ABD PELVIS WO RESULT:SEVERE PNA RT LUNG.PAGED DR CAROLYN HOYOS WILL WAIT TO RETURN CALL.
[2017-02-12] MEDS ORDERED: AZITHROMYCIN 250 MG TABLET PO SCH (11:00)
[2017-02-12] MEDS ORDERED: POTASSIUM CL. PREMIX PERIPHER. 50 ML IV SCH (11:00)
[2017-02-12] MEDS ORDERED: POTASSIUM CHLORIDE 20 MEQ POWDER PACKET GT ONE (11:30)
[2017-02-12] MEDS ORDERED: ENOXAPARIN SODIUM 60 MG/0.6 ML DISP.SYRIN SQ SCH (12:00)
--- NOTE | 2017-02-12 12:00 | NUR ---
PT'S FAMILY,ART/ZANE DESAUTCLEMENTE CALLED AND UPDATED ON PT'S CONDITION.UA C/S AND PROFILE SPECIMEN SENT.INSERTED PT'S NGT AND PT DESATURATES TO 85%WITH O2 MASK AT 5L/MIN.DR CAROLYN HOYOS AWARE.ORDERED ABG,STAT CXR AND BNP.
[2017-02-12 12:23] LABS: ABG BASE EXCESS -0.5 mmol/L; ABG OXYGEN SATURATION 92.4 % (92.0-98.5); ABG PCO2 27.6 mmHg (35.0-45.0); ABG PO2 64.4 mmHg (75.0-100.0); AaDO2 613.8 mmHg; COHb 0.2 % (0.5-1.5); MetHb 0.3 % (0.0-1.5); O2Hb 91.9 % (94.0-97.0); SITE, ABG Right Radial; VENT MODE, BG NON REBREATHER
[2017-02-12] MEDS ORDERED: AMIODARONE 150 MG in IV D5W 100 ML IV ONE (12:30)
[2017-02-12] MEDS ORDERED: AMIODARONE 900 MG in IV D5W 500 ML IV PRN ×2 (12:30→14:00)
--- NOTE | 2017-02-12 12:30 | NUR ---
TRANSFERRED PT TO ICU ROOM 251 WITH O2 NON REBREATHER MASK AT 15 L/MIN.AFEBRILE.BP 96/49 HR 130 RR 20 T 97.5 O2 SAT 94%.GAVE REPORT TO LUCIEN CHAPPELL,CLINICAL BUSINESS ANALYST.
--- NOTE | 2017-02-12 13:00 | NUR ---
SEAT COVERS TRIMMER RECEIVED PATIENT FROM 3RD FLOOR, DROWSY, OPENS EYES FOLLOWS SIMPLE COMMAND WEAK IN APPEARANCE AFEBRILE AFIBRILLATION WITH RVR NOTED - 120'S MAINTAINED ON NPO DUE TO MENTAL STATUS, NGT INSERTED AT 3RD FLOOR WEI CATHETER IN PLACED
[2017-02-12] MEDS ORDERED: IV SET PRIMARY PUMP SET 1 EA INFUS.SET MC ONE ×2 (13:15→19:50)
[2017-02-12] MEDS: DOCUSATE SODIUM 100 MG CAPSULE PO SCH ×2 (13:33→17:51)
[2017-02-12] MEDS ORDERED: SECONDARY IV SET 1 EA INFUS.SET MC ONE ×2 (14:27→20:10)
[2017-02-12] MEDS ORDERED: AMIODARONE 900 MG in IV D5W 482 ML IV PRN (14:30)
[2017-02-12] MEDS: IV D5W 1,000 ML IV PRN (18:06)
--- NOTE | 2017-02-12 18:44 | NUR ---
CUSTOMER SUCCESS ADVOCATE PATIENT REMAINS ON NON-REBREATHING MASK STILL ON AFIB UNCONTROLLED MAINTAINED ON AMIODARONE DRIP INFORMED FAMILLY OF PATIENT'S PRESENT CONDITION AND FAMILY STILL WANTS PATIENT ON FULL CODE ENDORSED TO NOD
--- NOTE | 2017-02-12 19:41 | NUR ---
FINISHING AND SHIPPING SUPERVISOR NOTES RECEIVED PT IN BED, DROWSY, DOES NOT OPEN EYES, DISORIENTED AND MUMBLING INCOMPREHENSIBLE SOUNDS. TELE READS UNCONTROLLED AFIB AT 110 BPM. ON AMIO DRIP SINCE 1300, RUNNING AT 0.5 MG/MIN. ON NONREBREATHER AT 15 LPM, SHILO FAIR. SBP IN THE 80s. DR GLOVER MADE AWARE, NEW ORDER FOR 500 ML BOLUS ORDERED. WEI CATH IN PLACE, DRAINING TO PALE YELLOW CLOUDY URINE. IV SITES AT RIGHT HAND 22 AND ANA 18G MIDLINE. IVF D5W AT 75 ML/HR RUNNING. ON KCI MATTRESS, HOB ELEVATED, SIDE RAILS X3. SON AT BEDSIDE, ALL QUESTIONS ANSWERED.
[2017-02-12] MEDS ORDERED: IV NS 0.9% 500 ML IV ONE (20:00)
[2017-02-12] MEDS: DOXYCYCLINE HYCLATE (100 MG) 100 MG TABLET PO SCH (20:16)
--- NOTE | 2017-02-12 21:14 | NUR ---
FAMILY CONTACTS ART (SON) / ZANE (DAUGHTER IN LAW) [CELL] - ART (SON) / ZANE (DAUGHTER IN LAW) [WORK] - ZION (GRANDSON) - YARELI (GRANDDAUGHTER) - ART (SON) IS THE NEXT OF KIN AND DECISION MAKER.
--- NOTE | 2017-02-12 21:19 | NUR ---
GREENS PLANTER NOTES SPOKE TO PT'S SON ART REGARDING CODE STATUS. FAMILY WISHES TO KEEP FULL CODE AND AGREES TO INTUBATE PT IF NEEDED. ART (SON) WOULD LIKE TO SPEAK TO HOST/HOSTESS TOMORROW MORNING. WILL ENDORSE TO AM NURSE TO PROVIDE SON'S CONTACT INFO TO DR OLIVAS.
[2017-02-13] VITALS (28 sets, daily range): BP systolic 82–116; BP diastolic 43–78
[2017-02-13 04:52] LABS: EOSINOPHILS % (AUTO) 0.1 % (0.0-6.0); HEMATOCRIT 26 % (33-45); HEMOGLOBIN 8.4 g/dL (11.5-14.8); LYMPHOCYTES # (AUTO) 0.3 /CMM (0.8-4.8); LYMPHOCYTES % (AUTO) 1.5 % (20.0-44.0); MEAN CORPUSCULAR HEMOGLOBIN 29 PG (26.0-33.0); MEAN CORPUSCULAR HGB CONC 33 g/dl (31.0-36.0); MEAN CORPUSCULAR VOLUME 87 fL (82-100); MONOCYTES # (AUTO) 0.1 /CMM (0.1-1.30); MONOCYTES % (AUTO) 0.4 % (2.0-12.0); NEUTROPHILS # (AUTO) 19.8 /CMM (1.8-8.9); PLATELET COUNT (AUTO) 234 /CMM (150-450); RDW COEFFICIENT OF VARIATION 14.4 (11.5-15.0); RED BLOOD CELL COUNT(AUTO) 2.94 MIL/uL (4.0-5.2); WHITE BLOOD COUNT (AUTO) 20.2 K/uL (4.3-11.0)
[2017-02-13 05:05] LABS: CALCIUM, SERUM 7.8 mg/dL (8.5-10.1); CARBON DIOXIDE 25 mmol/L (21-32); CHLORIDE 114 mmol/L (98-107); CREATININE 1.3 mg/dL (0.6-1.3); GLUCOSE 194 mg/dL (74-106); MAGNESIUM 2.1 mg/dL (1.8-2.4); PHOSPHORUS 2.8 mg/dL (2.5-4.9); SODIUM SERUM 148 mmol/L (136-145); UREA NITROGEN, BLOOD 52 mg/dL (7-18)
[2017-02-13] MEDS: PIPERACILLIN /TAZOBACTAM 2.25 G in IV D5W 50 ML IV SCH ×4 (06:03→23:21)
[2017-02-13] MEDS: LEVOTHYROXINE SODIUM 50 MCG TABLET PO SCH (07:30)
[2017-02-13] MEDS: BOOST PLUS FOOD-VANILLA 237 ML BOX PO SCH ×3 (08:00→17:00)
[2017-02-13] MEDS: POTASSIUM CHLORIDE 20 MEQ POWDER PACKET PO SCH ×2 (08:00→09:00)
[2017-02-13] MEDS: DOXYCYCLINE HYCLATE (100 MG) 100 MG TABLET PO SCH ×2 (09:00→21:00)
[2017-02-13] MEDS ORDERED: METOPROLOL SUCCINATE 50 MG TAB.SR.24H PO SCH (09:00)
[2017-02-13] MEDS: DOCUSATE SODIUM 100 MG CAPSULE PO SCH ×2 (09:00→17:00)
[2017-02-13] MEDS: CADEXOMER IODINE 40 GM TUBE TP SCH (09:00)
[2017-02-13] MEDS: FAMOTIDINE (20 MG) 20 MG TABLET PO SCH ×2 (09:00→17:00)
[2017-02-13] MEDS: Z GUARD REMEDY 2 OZ OINT TP SCH (09:00)
[2017-02-13] MEDS: FERROUS SULFATE (325 MG) 325 MG/TAB TABLET PO SCH (09:00)
[2017-02-13] MEDS: LACTOBACILLUS RHAMNOSUS GG 1 EACH CAP.SPRINK PO SCH ×2 (09:00→17:00)
[2017-02-13] MEDS: risperiDONE 1 MG TABLET PO SCH ×2 (09:00→17:00)
[2017-02-13] MEDS: DIGOXIN INJ 0.5 MG/2 ML AMPUL IV SCH ×2 (12:00→19:51)
[2017-02-13 13:24] LABS: ABG BASE EXCESS -1.2 mmol/L; ABG OXYGEN SATURATION 92.8 % (92.0-98.5); ABG PH 7.499 (7.350-7.450); ABG PO2 63.5 mmHg (75.0-100.0); AaDO2 261.5 mmHg; COHb 0.2 % (0.5-1.5); MetHb 0.9 % (0.0-1.5); O2Hb 91.8 % (94.0-97.0); SITE, ABG Left Radial; VENT MODE, BG 6LPM N.C
[2017-02-13] MEDS: AMIODARONE HCL 200 MG TABLET PO SCH (17:57)
--- NOTE | 2017-02-13 19:32 | NUR ---
am meds not charted by icu nurse because of computer issues ,but icu day shift nurse jessee said she gave medications
--- NOTE | 2017-02-13 19:45 | NUR ---
RN CONNOR INITIAL NOTES PT IS IN BED, HOB ELEVATED, NONVERBAL, ON NON REBREATHER, SATURATING 94% AND TOLERATING IT WELL, NO SOB NOTED, ON TELE MONITOR SINUS RHYTHM. ON IVF HYDRATION D5W @ 75ML/HR, PT TURNED AND REPOSITIONED. SIDERAILS UP, BED LOCKED AND IN LOWEST POSITION. WILL CONTINUE TO MONITOR.
--- NOTE | 2017-02-13 22:00 | NUR ---
RN CONNOR NOTES PT NOTED WITH TEMP 101.6, COOLING MEASURES PROVIDED. TYLENOL 650MG GIVEN ORDERED. WILL RECHECK IN 2299.
[2017-02-13] MEDS: ACETAMINOPHEN 325 MG TABLET PO PRN (23:00)
--- NOTE | 2017-02-13 23:00 | NUR ---
RN CONNOR NOTES TEMP 99.0. WILL CONTINUE TO MONITOR TEMP.
[2017-02-14] VITALS (10 sets, daily range): BP systolic 89–155; BP diastolic 49–75
[2017-02-14] MEDS: VANCOMYCIN 1 GM in IV D5W 250 ML IV SCH (00:38)
[2017-02-14] MEDS: DIGOXIN INJ 0.5 MG/2 ML AMPUL IV SCH (00:41)
[2017-02-14] MEDS ORDERED: SECONDARY IV SET 1 EA INFUS.SET MC ONE (00:41)
[2017-02-14] MEDS: IV D5W 1,000 ML IV PRN ×2 (02:50→17:10)
[2017-02-14] MEDS: PIPERACILLIN /TAZOBACTAM 2.25 G in IV D5W 50 ML IV SCH ×4 (05:23→23:55)
--- NOTE | 2017-02-14 07:00 | NUR ---
RN NOTES RECEIVED PT ON BED , A/Ox1, NON VERBAL ,ON NON REBREATHER MASK, SATURATING 96% ,NO SOB NOTED ON TELE MONITOR SINUS RHYTHM. IVF D5W @ 75ML/HR RUNNING R FA IV SITE WELL, SIDE RAILS UPx3, BED LOCKED AND IN LOWEST POSITION. WILL CONTINUE TO MONITOR PT CLOSELY AND NOTIFY MD FOR ANY SIGNIFICANT CHANGES.
--- NOTE | 2017-02-14 07:18 | NUR ---
RN CONNOR CLOSING NOTES NO SIGNIFICANT CHANGES OVERNIGHT. PT IS ON NON REBREATHER 24 FIO2 AND SATURATING WELL. NO RESPIRATORY DISTRESS NOTED. SINUS RHYTHM ON TELE MONITOR. IV SITES ARE PATENT, NO S/SX OF INFECTION/INFILTRATION NOTED. ALL SAFETY MEASURES MAINTAINED, WOUND CARE DONE, KEPT PT CLEAN AND DRY THROUGHOUT THE SHIFT. WILL ENDORSED TO AM NURSE FOR CONTINUATION OF CARE.
[2017-02-14 07:48] LABS: EOSINOPHILS % (AUTO) 0.2 % (0.0-6.0); HEMATOCRIT 28 % (33-45); HEMOGLOBIN 9.4 g/dL (11.5-14.8); LYMPHOCYTES # (AUTO) 0.4 /CMM (0.8-4.8); LYMPHOCYTES % (AUTO) 2.5 % (20.0-44.0); MEAN CORPUSCULAR HEMOGLOBIN 29 PG (26.0-33.0); MEAN CORPUSCULAR HGB CONC 33 g/dl (31.0-36.0); MEAN CORPUSCULAR VOLUME 88 fL (82-100); MONOCYTES # (AUTO) 0.1 /CMM (0.1-1.30); MONOCYTES % (AUTO) 0.3 % (2.0-12.0); NEUTROPHILS # (AUTO) 17.2 /CMM (1.8-8.9); PLATELET COUNT (AUTO) 257 /CMM (150-450); RDW COEFFICIENT OF VARIATION 13.4 (11.5-15.0); RED BLOOD CELL COUNT(AUTO) 3.21 MIL/uL (4.0-5.2); WHITE BLOOD COUNT (AUTO) 17.7 K/uL (4.3-11.0)
[2017-02-14] MEDS: BOOST PLUS FOOD-VANILLA 237 ML BOX PO SCH ×3 (08:00→17:00)
[2017-02-14] MEDS: FERROUS SULFATE (325 MG) 325 MG/TAB TABLET PO SCH (08:23)
[2017-02-14] MEDS: risperiDONE 1 MG TABLET PO SCH ×2 (08:23→17:07)
[2017-02-14] MEDS: DOXYCYCLINE HYCLATE (100 MG) 100 MG TABLET PO SCH ×2 (08:23→21:07)
[2017-02-14] MEDS: FAMOTIDINE (20 MG) 20 MG TABLET PO SCH ×2 (08:23→17:07)
[2017-02-14] MEDS: LACTOBACILLUS RHAMNOSUS GG 1 EACH CAP.SPRINK PO SCH ×2 (08:24→17:07)
[2017-02-14] MEDS: AMIODARONE HCL 200 MG TABLET PO SCH ×2 (08:24→17:08)
[2017-02-14] MEDS: DOCUSATE SODIUM 100 MG CAPSULE PO SCH ×2 (08:24→17:06)
[2017-02-14] MEDS: LEVOTHYROXINE SODIUM 50 MCG TABLET PO SCH (08:25)
[2017-02-14] MEDS: CADEXOMER IODINE 40 GM TUBE TP SCH (08:30)
[2017-02-14] MEDS: Z GUARD REMEDY 2 OZ OINT TP SCH (08:30)
[2017-02-14 08:41] LABS: CALCIUM, SERUM 8.4 mg/dL (8.5-10.1); CARBON DIOXIDE 26 mmol/L (21-32); CHLORIDE 113 mmol/L (98-107); CREATININE 1.2 mg/dL (0.6-1.3); GLUCOSE 173 mg/dL (74-106); MAGNESIUM 2.1 mg/dL (1.8-2.4); PHOSPHORUS 3.3 mg/dL (2.5-4.9); SODIUM SERUM 149 mmol/L (136-145); UREA NITROGEN, BLOOD 48 mg/dL (7-18)
--- NOTE | 2017-02-14 14:00 | NUR ---
RN NOTES PT TOLERATING O2 AT 6L N/C WELL, O2 SAT 94-97%. ON TELE SR -ST , PT'S HEART GOES UP WITH TURNING AND REPOSITIONING , NGT INTACT AN PATENT . CONTINUE TO MONITOR .
[2017-02-14] MEDS: ACETAMINOPHEN 325 MG TABLET PO PRN ×2 (17:06→19:50)
--- NOTE | 2017-02-14 18:44 | NUR ---
RN NOTES PT REMAINS THE SAME, MEDICATED PER MD ORDER , ON O2 6L N/C , O2 SAT 94%, WEI DRAINING TO GRAVITY WITH YELLOW CLOUDY URIN, SR UP X3, CALL LIGHT WITHIN EASY REACH, NO SIGNIFICANT CHANGES NOTED ON THIS SHIFT
--- NOTE | 2017-02-14 19:15 | NUR ---
MOVE COORDINATOR INITIAL NOTE RECEIVED REPORT FROM SOLEDAD KUMAR. PT IN BED, LETHARGIC. DESATURATING, RT AT BEDSIDE. PT ON 6LNC. DEEP SUCTION BY RT NO SECRETIONS. PLACED ON NRB 15L. LUNG SOUNDS CRACKLES. BP LOW IN 80'S. WILL CONTACT PRIMARY ABOUT CHANGE IN STATUS. WILL CONTINUE TO MONITOR.
--- NOTE | 2017-02-14 19:45 | NUR ---
SUPERVISOR ALUMINUM BOAT ASSEMBLY PLACED SECOND CALL TO PRIMARY. PT HAS ACCESSORY MUSCLE USE. ABG ORDERED. WILL CONTINUE TO MONITOR.
--- NOTE | 2017-02-14 20:15 | NUR ---
VULCANIZING MACHINE OPERATOR SPOKE WITH DR GRADY, NOTIFIED HIM OF CONDITION CHANGE. PT REMAINS LETHARGIC. BP IMPROVED WITH HOB LOWERED. ACCESSORY MUSCLE USE. DESATURATING IN HIGH 80'S WITH NRB 15L. CXR RESULTS FROM TODAY- RLL PNA MILDLY INCREASED FROM PREVIOUS STUDY. ORDER TO TRANSFER TO ICU. WILL ENDORSE REPORT TO ICU NURSE AND SOLE SCRAPER.
[2017-02-14 20:24] LABS: ABG BASE EXCESS -3.9 mmol/L; ABG OXYGEN SATURATION 89.4 % (92.0-98.5); ABG PCO2 28.8 mmHg (35.0-45.0); ABG PH 7.445 (7.350-7.450); AaDO2 628.2 mmHg; COHb 0.5 % (0.5-1.5); MetHb 0.6 % (0.0-1.5); O2Hb 88.4 % (94.0-97.0); SITE, ABG Right Radial; VENT MODE, BG NRB
[2017-02-14] MEDS ORDERED: ALBUTEROL FS 2.5 MG/3 ML VIAL.NEB ONE (22:26)
[2017-02-14] MEDS ORDERED: IPRATROPIUM NEB FS 0.5 MG/2.5 ML AMPUL.NEB ONE (22:26)
[2017-02-14] MEDS ORDERED: ALBUTEROL FS 2.5 MG/3 ML VIAL.NEB NEB PRN (22:30)
[2017-02-15] VITALS (27 sets, daily range): BP systolic 102–133; BP diastolic 36–81
[2017-02-15] MEDS: VANCOMYCIN 1 GM in IV D5W 250 ML IV SCH (00:25)
[2017-02-15] MEDS ORDERED: ALBUTEROL FS 2.5 MG/3 ML VIAL.NEB ONE (04:17)
[2017-02-15] MEDS ORDERED: IPRATROPIUM NEB FS 0.5 MG/2.5 ML AMPUL.NEB ONE (04:17)
[2017-02-15] MEDS: IPRATROPIUM NEB FS 0.5 MG/2.5 ML AMPUL.NEB NEB PRN (04:22)
[2017-02-15] MEDS: PIPERACILLIN /TAZOBACTAM 2.25 G in IV D5W 50 ML IV SCH ×2 (05:30→11:54)
[2017-02-15 06:56] LABS: CALCIUM, SERUM 8.4 mg/dL (8.5-10.1); CARBON DIOXIDE 23 mmol/L (21-32); CHLORIDE 107 mmol/L (98-107); GLUCOSE 162 mg/dL (74-106); POTASSIUM 3.2 mmol/L (3.5-5.1); SODIUM SERUM 143 mmol/L (136-145); UREA NITROGEN, BLOOD 36 mg/dL (7-18)
--- NOTE | 2017-02-15 07:50 | NUR ---
ROD POINTER: pt.is lethargic, able to open eyes for seconds with touch and short eyes contact, unable to follow commands well, weak arms activity, no grimacing/rest, was desaturated over night, had Afib 120-135 episodes, now: NRBM 15L, O2 sat. WNL, HR 80-120, multiple lungs crackles sounds, RT updated, NGT in good position, unable to swallow d/t mental status by report, IVF D5W was stopped over night, K+3.2-will s/w MD, BP WNL
[2017-02-15] MEDS: LEVOTHYROXINE SODIUM 50 MCG TABLET PO SCH (07:53)
[2017-02-15] MEDS: BOOST PLUS FOOD-VANILLA 237 ML BOX PO SCH ×4 (08:00→17:10)
--- NOTE | 2017-02-15 08:15 | NUR ---
CAPTAIN/CHECK AIRMAN: pt.was suctioned OrPhar deeply by Donnie, RT: removed thick secretion/mucus, rest.Tx done, continue O2 n.c 6L via mouth cavity, HR up to 130-135afib with suction
[2017-02-15] MEDS: DOXYCYCLINE HYCLATE (100 MG) 100 MG TABLET PO SCH ×2 (09:16→21:01)
[2017-02-15] MEDS: DOCUSATE SODIUM 100 MG CAPSULE PO SCH ×2 (09:16→17:09)
[2017-02-15] MEDS: FAMOTIDINE (20 MG) 20 MG TABLET PO SCH ×2 (09:19→17:09)
[2017-02-15] MEDS: FERROUS SULFATE (325 MG) 325 MG/TAB TABLET PO SCH (09:19)
[2017-02-15] MEDS: LACTOBACILLUS RHAMNOSUS GG 1 EACH CAP.SPRINK PO SCH ×2 (09:19→17:09)
[2017-02-15] MEDS: AMIODARONE HCL 200 MG TABLET PO SCH ×2 (09:19→17:09)
[2017-02-15] MEDS: risperiDONE 1 MG TABLET PO SCH ×2 (09:19→17:09)
[2017-02-15] MEDS: Z GUARD REMEDY 2 OZ OINT TP SCH (09:20)
[2017-02-15] MEDS: CADEXOMER IODINE 40 GM TUBE TP SCH (09:20)
--- NOTE | 2017-02-15 10:50 | NUR ---
SINGE MACHINE OPERATOR: updated with pt.current condition, O2sat., ordered ABG, paged RT
[2017-02-15] MEDS ORDERED: SECONDARY IV SET 1 EA INFUS.SET MC ONE (11:10)
[2017-02-15] MEDS: POTASSIUM CL. PREMIX PERIPHER. 50 ML IV SCH ×4 (11:11→14:26)
--- NOTE | 2017-02-15 11:15 | NUR ---
DEBURR TECHNICIAN: is in room, updated with pt.neuro status, VS, O2 sat., spoke with RT, checked ABG: keep on same O2 support
[2017-02-15 11:23] LABS: ABG BASE EXCESS -0.2 mmol/L; ABG OXYGEN SATURATION 93.9 % (92.0-98.5); ABG PCO2 34.9 mmHg (35.0-45.0); ABG PH 7.448 (7.350-7.450); ABG PO2 69.3 mmHg (75.0-100.0); AaDO2 197.4 mmHg; COHb 0.4 % (0.5-1.5); MetHb 0.9 % (0.0-1.5); O2Hb 92.7 % (94.0-97.0); SITE, ABG Right Radial; VENT MODE, BG 6L N/C BY MOUTH
[2017-02-15] MEDS ORDERED: IV NS 0.9% 250 ML BAG IV ONE (11:30)
[2017-02-15] MEDS ORDERED: MEROPENEM 1 G in IV NS 0.9% 100 ML IV SCH (13:00)
--- NOTE | 2017-02-15 13:15 | NUR ---
LIFE SCIENTISTS: updated with afib, desaturation episodes over night, now: VS, I/O, ABG, labs, meds, O2sat., see new orders, said: continue Boost Food cans via NGT
[2017-02-15] MEDS: ACETAMINOPHEN 325 MG TABLET PO PRN ×2 (14:51→22:43)
--- NOTE | 2017-02-15 15:15 | NUR ---
PATHOLOGY COLLECTOR: pt.was grimacing, moaning, Tylenol given and PM, wounds care is done, HR episodes up to 130-135, O2 sat. WNL
[2017-02-15] MEDS: MEROPENEM 1 G in IV NS 0.9% 100 ML IV SCH (15:40)
--- NOTE | 2017-02-15 18:00 | NUR ---
TUFT MACHINE OPERATOR: pt.is lethargic, reactive for touch/pain stimuli, rest now, on 6L O2 n/c via oral cavity, O2 sat. 93-95%, HR 95-110, SBP over 100, all PM care done, boost vanilla food can given/keep HOB over 40, no grimacing
--- NOTE | 2017-02-15 19:15 | NUR ---
ICU OVERFLOW RN INITIAL NOTE RECEIVED REPORT FROM JOSE ENGINEERING ANALYST. PT IN BED. LETHARGIC. LUNG SOUNDS CRACKLES. BOWEL SOUNDS PRESENT. IV PATENT AND INTACT. WEI INTACT AND DRAINING URINE. NG TUBE INTACT AT 65. 6L NC SATING 93%. PT APPEARS COMFORTABLE, NO RESPIRATORY DISTRESS. BED IN LOW LOCKED POSITION. WILL CONTINUE TO MONITOR.
[2017-02-16] VITALS (57 sets, daily range): BP systolic 97–154; BP diastolic 42–103
[2017-02-16] MEDS: MEROPENEM 1 G in IV NS 0.9% 100 ML IV SCH ×2 (01:36→13:34)
[2017-02-16 07:34] LABS: CALCIUM, SERUM 8.4 mg/dL (8.5-10.1); CARBON DIOXIDE 25 mmol/L (21-32); CHLORIDE 112 mmol/L (98-107); CREATININE 0.9 mg/dL (0.6-1.3); GLUCOSE 119 mg/dL (74-106); POTASSIUM 3.7 mmol/L (3.5-5.1); SODIUM SERUM 147 mmol/L (136-145); UREA NITROGEN, BLOOD 35 mg/dL (7-18)
--- NOTE | 2017-02-16 07:34 | NUR ---
CLINICAL WRITER RECEIVED PATIENT FROM THE PREVIOUS SHIFT. PATIENT IS IN BED. RESTING COMFORTABLY. PATIENT IS ON 6L. OBTUNDED NEURO STATUS. PATIENT IS SATURATING AT 91% AT THIS TIME. UNABLE TO TURN AND REPOSITION DUE TO HEMODYNAMIC INSTABILITY. AFEBRILE. SINUS TACH ON MONITOR. WILL CONTINUE TO MONITOR AND PROVIDE CARE.
[2017-02-16] MEDS: IPRATROPIUM NEB FS 0.5 MG/2.5 ML AMPUL.NEB NEB PRN (08:01)
[2017-02-16 08:11] LABS: BASOPHILS % (AUTO) 0.1 % (0.0-2.0); EOSINOPHILS # (AUTO) 0.1 /CMM (0.0-0.7); EOSINOPHILS % (AUTO) 0.6 % (0.0-6.0); HEMATOCRIT 26 % (33-45); HEMOGLOBIN 8.6 g/dL (11.5-14.8); LYMPHOCYTES # (AUTO) 0.5 /CMM (0.8-4.8); LYMPHOCYTES % (AUTO) 3.1 % (20.0-44.0); MEAN CORPUSCULAR HEMOGLOBIN 29 PG (26.0-33.0); MEAN CORPUSCULAR HGB CONC 33 g/dl (31.0-36.0); MEAN CORPUSCULAR VOLUME 86 fL (82-100); MONOCYTES # (AUTO) 0.5 /CMM (0.1-1.30); MONOCYTES % (AUTO) 2.7 % (2.0-12.0); NEUTROPHILS # (AUTO) 16.4 /CMM (1.8-8.9); NEUTROPHILS % (AUTO) 93.5 % (43.0-81.0); PLATELET COUNT (AUTO) 320 /CMM (150-450); RDW COEFFICIENT OF VARIATION 13.6 (11.5-15.0); RED BLOOD CELL COUNT(AUTO) 3.02 MIL/uL (4.0-5.2); WHITE BLOOD COUNT (AUTO) 17.5 K/uL (4.3-11.0)
[2017-02-16 08:27] LABS: BAND % (MANUAL) 4 % (0.0-5.0); EOSINOPHILS % (MANUAL) 1 % (0-4); LYMPHOCYTES % (MANUAL) 2 % (16-48); MONOCYTES % (MANUAL) 7 % (0-11.0); NEUTROPHILS % (MANUAL) 86 (42-76)
[2017-02-16 08:38] LABS: ABG BASE EXCESS -1.4 mmol/L; ABG PCO2 29.1 mmHg (35.0-45.0); ABG PH 7.484 (7.350-7.450); ABG PO2 67.4 mmHg (75.0-100.0); AaDO2 328.4 mmHg; COHb 0.8 % (0.5-1.5); MetHb 0.9 % (0.0-1.5); O2Hb 92.4 % (94.0-97.0); SITE, ABG Right Radial; VENT MODE, BG SIMPLE MASK
--- NOTE | 2017-02-16 08:40 | NUR ---
PT POORLY RESPONSIVE. RESPIR RATE 32 AND LABORED. STAT ABG WITH PH 7.48 PCO2 29 PO2 67 ON 60% SIMPLE MASK. MONITOR SHOWS RAPID AFIB HR 140, D/W SON ART, DELANEY SAN AND DEISY-ALL AGREE TO INTUBATION
--- NOTE | 2017-02-16 08:55 | NUR ---
MOUNTAIN OR GLACIER GUIDE PATIENT WAS INTUBATED TO ER PHYSICIAN AT BEDSIDE. NO COMPLICATIONS NOTED. FAMILY AGREED TO THE DECISION FOR FULL AGGRESSIVE CARE AT THIS TIME. RN SPOKE TO SON ARAVIND OVER THE PHONE. EVENT WITNESSED BY ICU CHARGE NURSE. WILL CONTINUE TO MONITOR.
[2017-02-16] MEDS ORDERED: IV SET PRIMARY PUMP SET 1 EA INFUS.SET MC ONE ×3 (09:11→21:38)
[2017-02-16] MEDS: LACTOBACILLUS RHAMNOSUS GG 1 EACH CAP.SPRINK PO SCH (09:15)
[2017-02-16] MEDS: FERROUS SULFATE (325 MG) 325 MG/TAB TABLET PO SCH (09:15)
[2017-02-16] MEDS: DOXYCYCLINE HYCLATE (100 MG) 100 MG TABLET PO SCH (09:15)
[2017-02-16] MEDS: risperiDONE 1 MG TABLET PO SCH ×2 (09:15→17:33)
[2017-02-16] MEDS: Z GUARD REMEDY 2 OZ OINT TP SCH (09:16)
[2017-02-16] MEDS: CADEXOMER IODINE 40 GM TUBE TP SCH (09:16)
[2017-02-16] MEDS: FAMOTIDINE (20 MG) 20 MG TABLET PO SCH (09:16)
[2017-02-16] MEDS: AMIODARONE HCL 200 MG TABLET PO SCH (09:16)
[2017-02-16] MEDS: LEVOTHYROXINE SODIUM 50 MCG TABLET PO SCH (09:16)
[2017-02-16] MEDS ORDERED: AMIODARONE HCL 200 MG TABLET GT SCH (09:19)
[2017-02-16] MEDS ORDERED: MAGNESIUM HYDROXIDE 30 ML UDC NG PRN (09:26)
[2017-02-16] MEDS: PROPOFOL 100 ML IV PRN ×2 (09:28→19:10)
[2017-02-16] MEDS ORDERED: PHARMACY TO CHANGE PO MEDS TO GT/NG XX PRN (09:30)
[2017-02-16] MEDS ORDERED: ETOMIDATE 2 MG/ML VIAL IV ONE (09:40)
--- NOTE | 2017-02-16 10:00 | NUR ---
PT SEDATED WITH DIPRIVAN @ 20 MICS. VSS, TEMP 99.9. DOES NOT INDICATE PAIN OF SOB ON CURRANT SETTINGS.
--- NOTE | 2017-02-16 10:34 | NUR ---
DIRECTOR OF DEVELOPMENT TRANSFERRED THE PATIENT TO ICU LEVEL OF CARE ON STABLE CONDITIONS. ACLS PROTOCOL. REPORT GIVEN TO RECEIVING RN FOR CONTINUITY OF CARE.
[2017-02-16 10:36] LABS: ABG BASE EXCESS -1.9 mmol/L; ABG OXYGEN SATURATION 98.3 % (92.0-98.5); ABG PCO2 30.3 mmHg (35.0-45.0); ABG PH 7.464 (7.350-7.450); ABG PO2 168.5 mmHg (75.0-100.0); AaDO2 514.2 mmHg; COHb 0.1 % (0.5-1.5); MetHb 1.1 % (0.0-1.5); O2Hb 97.1 % (94.0-97.0); SITE, ABG Left Radial; VT, ABG 500 mL
[2017-02-16] MEDS: ACETAMINOPHEN 325 MG TABLET PO PRN (14:00)
--- NOTE | 2017-02-16 14:00 | NUR ---
TEMP 102.[address] OLIVAS NOTIFIED. PT AJVED CULTURED, NS @75 ML/H INITIATED
[2017-02-16] MEDS: IV NS 0.9% 1,000 ML IV PRN (15:45)
[2017-02-16] MEDS: LACTOBACILLUS RHAMNOSUS GG 1 EACH CAP.SPRINK NG SCH (17:32)
[2017-02-16] MEDS: AMIODARONE HCL 200 MG TABLET NG SCH (17:32)
[2017-02-16] MEDS: FAMOTIDINE (20 MG) 20 MG TABLET NG SCH (17:33)
--- NOTE | 2017-02-16 20:45 | NUR ---
RN NOTES RECEIVED PT RESTED WELL ON BED. WITH ETT 7.01/20 CONNECTED TO VENT SETTING OF AC 12 TV 450 FIO2 60% PEEP 5 TOLERATED WELL. NSR HR 66 REVEALS ON TELE MONITOR. WITH NGT ON RIGHT NARES PATENCY CHECKED. WITH IV SITE ON ANA MIDLINE RUNNING WITH NS @ 75 CC/HR AND PROPOFOL 20 MCG/KG/MIN INTACT AND PATENT. TEMP STILL 100 DEG F. COOL MEASURES RENDERED. . F/C DRAINED WITH YELLOW CLEAR COLOR URINE. VIA GRAVITY. KEPT PT CLEAN AND DRY WILL CONTINUE TO MONITOR
[2017-02-16] MEDS: DOXYCYCLINE HYCLATE (100 MG) 100 MG TABLET NG SCH (21:06)
[2017-02-17] VITALS (49 sets, daily range): BP systolic 98–146; BP diastolic 47–69
[2017-02-17] MEDS: MEROPENEM 1 G in IV NS 0.9% 100 ML IV SCH ×2 (02:48→13:18)
--- NOTE | 2017-02-17 03:00 | NUR ---
RN NOTES BED BATH DONE AND WOUND DRESSING RENDERED RE-ASSESSED PT WOUND AND PHOTO TAKEN. PT TOLERATED REPOSITIONING WELL.
[2017-02-17 04:31] LABS: EOSINOPHILS # (AUTO) 0.1 /CMM (0.0-0.7); EOSINOPHILS % (AUTO) 0.7 % (0.0-6.0); HEMATOCRIT 25 % (33-45); HEMOGLOBIN 8.3 g/dL (11.5-14.8); LYMPHOCYTES # (AUTO) 0.6 /CMM (0.8-4.8); LYMPHOCYTES % (AUTO) 3.5 % (20.0-44.0); MEAN CORPUSCULAR HEMOGLOBIN 29 PG (26.0-33.0); MEAN CORPUSCULAR HGB CONC 33 g/dl (31.0-36.0); MEAN CORPUSCULAR VOLUME 87 fL (82-100); MONOCYTES # (AUTO) 0.5 /CMM (0.1-1.30); MONOCYTES % (AUTO) 2.8 % (2.0-12.0); NEUTROPHILS # (AUTO) 16.3 /CMM (1.8-8.9); PLATELET COUNT (AUTO) 294 /CMM (150-450); RDW COEFFICIENT OF VARIATION 13.5 (11.5-15.0); RED BLOOD CELL COUNT(AUTO) 2.86 MIL/uL (4.0-5.2); WHITE BLOOD COUNT (AUTO) 17.5 K/uL (4.3-11.0)
[2017-02-17 04:45] LABS: CALCIUM, SERUM 8.2 mg/dL (8.5-10.1); CARBON DIOXIDE 26 mmol/L (21-32); CHLORIDE 116 mmol/L (98-107); CREATININE 0.8 mg/dL (0.6-1.3); GLUCOSE 99 mg/dL (74-106); POTASSIUM 3.7 mmol/L (3.5-5.1); SODIUM SERUM 150 mmol/L (136-145); UREA NITROGEN, BLOOD 32 mg/dL (7-18)
[2017-02-17 05:44] LABS: LYMPHOCYTES % (MANUAL) 2 % (16-48); MONOCYTES % (MANUAL) 4 % (0-11.0); NEUTROPHILS % (MANUAL) 94 (42-76)
[2017-02-17] MEDS: IV NS 0.9% 1,000 ML IV PRN ×2 (06:09→19:35)
[2017-02-17] MEDS ORDERED: IV SET PRIMARY PUMP SET 1 EA INFUS.SET MC ONE (06:15)
[2017-02-17] MEDS: PROPOFOL 100 ML IV PRN (06:21)
--- NOTE | 2017-02-17 07:24 | NUR ---
[facility] NO SIGNIFICANT CHANGE OF CONDITION THROUGHOUT THE SHIFT. AFEBRILE TMAX WAS 98.7 ENDORSED CONTINUITY OF CARE TO AM NURSE.
[2017-02-17 07:50] LABS: ABG BASE EXCESS -1.1 mmol/L; ABG OXYGEN SATURATION 96.4 % (92.0-98.5); ABG PCO2 34.2 mmHg (35.0-45.0); ABG PO2 92.1 mmHg (75.0-100.0); AaDO2 153.8 mmHg; COHb 0.5 % (0.5-1.5); SITE, ABG Right Radial
[2017-02-17] MEDS ORDERED: VANCOMYCIN 1 GM in IV D5W 250 ML IV ONE (08:00)
--- NOTE | 2017-02-17 08:00 | NUR ---
FINISHER POLISHER; ASSESSEMENT RECEIVED PT VENTED VIA ETT. SEE FLOW SHEET FOR VENT SETTINGS. PT SEDATED ON DIPRIVAN DRIP AT 30MCG/KG/MIN, NORMAL SALINE AT 75ML/HR, INFUSING INTO LEFT UPPER ARM MIDLINE. NG TUBE TO RIGHT NARE CLAMPED, POSITIVE FOR AUSCULTATION AND ASPIRATION. WEI CATH INTACT DRAINING TO GRAVITY, CLEAR YELLOW URINE. NO ACUTE DISTRESS NOTED. WILL CONTINUE TO MONITOR CLOSELY.
--- NOTE | 2017-02-17 08:46 | NUR ---
RT PATIENT REC'D ORALLY INTUBATED ON [facility] VENT WITH SETTINGS SET PER MD SHILO GUTIERREZ. VENT ALARMS CHECKED + AUDIBLE. CUFF PRESSURE CHECKED FOUNTAIN ROLLER ASSEMBLER. ETT SECURE AND IN PROPER POSITION. VENT PLUGGED INTO RED OUTLET. B/S DIM COARSE. SX'D WITH SM/ AMT PALE SEMITHICK SECRETIONS. PATIENT APPEARS COMFORTABLE AND IN NO DISTRESS AT THIS TIME. AMBU BAG AT HOB. CONT CURRENT PLAN OF RESP CARE. Addendum: 02/17/17 at 1750 by MASOUD STEVE RT Amended: Links added.
[2017-02-17 08:54] LABS: BILIRUBIN,TOTAL 0.5 mg/dL (0.2-1.0); TOTAL PROTEIN, SERUM 5.7 g/dL (6.4-8.2)
[2017-02-17 08:56] LABS: ALBUMIN 1.3 g/dL (3.4-5.0)
[2017-02-17] MEDS: LACTOBACILLUS RHAMNOSUS GG 1 EACH CAP.SPRINK NG SCH ×2 (09:02→16:25)
[2017-02-17] MEDS: AMIODARONE HCL 200 MG TABLET NG SCH ×2 (09:02→16:26)
[2017-02-17] MEDS: LEVOTHYROXINE SODIUM 50 MCG TABLET NG SCH (09:02)
[2017-02-17] MEDS: DOXYCYCLINE HYCLATE (100 MG) 100 MG TABLET NG SCH ×2 (09:03→20:13)
[2017-02-17] MEDS: FAMOTIDINE (20 MG) 20 MG TABLET NG SCH ×2 (09:03→16:25)
[2017-02-17] MEDS: risperiDONE 1 MG TABLET PO SCH ×2 (09:04→16:25)
[2017-02-17] MEDS: Z GUARD REMEDY 2 OZ OINT TP SCH (09:05)
[2017-02-17] MEDS: CADEXOMER IODINE 40 GM TUBE TP SCH (09:06)
[2017-02-17] MEDS: FERROUS SULFATE (325 MG) 325 MG/TAB TABLET NG SCH (09:07)
[2017-02-17 09:28] LABS: THYROID STIMULATING HORMONE 1.542 uIU/mL (0.358-3.74)
[2017-02-17 09:45] LABS: BILIRUBIN,DIRECT 0.2 mg/dL (0.0-0.2)
--- NOTE | 2017-02-17 09:45 | NUR ---
CHANGE MANAGEMENT MANAGER; PRIMARY AND PULMONARY DR. OLIVAS AND DR. Anderson HOYOS AT BEDSIDE UPDATE WAS GIVEN. NEW ORDERS ENTERED.
--- NOTE | 2017-02-17 10:00 | NUR ---
POUNCING MACHINE OPERATOR; SEDATION VACATION PT OFF OF SEDATION FOR APPROX ONE HR. PT OPENS EYES TO TACTILE STIMULI. UNABLE TO TRACK OR FOLLOW COMMANDS. WILL MAINTAIN DIPRIVAN OFF TO SEE IF PT MENTAL STATUS IMPROVES.
[2017-02-17] MEDS: NUTREN PULMONARY 1,000 ML BAG GT PRN (16:36)
--- NOTE | 2017-02-17 17:49 | NUR ---
END OUT SHIFT SUMMARY: PATIENT REMAINS ORALLY INTUBATED ON [facility] VENT WITH SETTINGS SET PER MD SHILO GUTIERREZ. VENT ALARMS CHECKED + AUDIBLE. CUFF PRESSURE CHECKED WEIGHT SHIFTER. ETT SECURE AND IN PROPER POSITION. VENT PLUGGED INTO RED OUTLET. B/S DIM COARSE. SX'D WITH SM/MD VELEZT PALE SEMITHICK SECRETIONS. PATIENT APPEARS COMFORTABLE AND IN NO DISTRESS AT THIS TIME. AMBU BAG AT HOB. CONT CURRENT PLAN OF RESP CARE. Addendum: 02/17/17 at 1750 by MASOUD STEVE RT Amended: Links added.
[2017-02-17 20:08] LABS: *MYCOPLASMA PNEUMONIAE IgG 190 U/mL (0-99); *MYCOPLASMA PNEUMONIAE IgM <770 U/mL (0-769)
[2017-02-17] MEDS: ACETAMINOPHEN 325 MG TABLET PO PRN (20:43)
--- NOTE | 2017-02-17 20:43 | NUR ---
PT RECEIVED INTUBATED WITH 7.5 ETT AT 22CM AT THE LIP. NO RESP DISTRESS NOTED. PT TOLERATING VENT SETTINGS. SML AMT OF SECRETIONS. VENT ALARMS SET AND AUDIBLE. ÁNGELA LARA AT [facility]. WILL CONTINUE TO MONITOR. Addendum: 02/17/17 at 2043 by BLANCA HAWLEY RT Amended: Links added.
--- NOTE | 2017-02-17 21:16 | NUR ---
PT HAD 102 ORAL TEMP AND WAS SWEATING, TYLENOL 650 MG GIVEN, COLD BATH GIVEN, FAN PLACED, TEMP NOW DOWN TO 100.1 ORAL
[2017-02-18] VITALS (44 sets, daily range): BP systolic 114–160; BP diastolic 49–80
[2017-02-18] MEDS: MEROPENEM 1 G in IV NS 0.9% 100 ML IV SCH ×2 (02:31→13:28)
[2017-02-18 04:49] LABS: EOSINOPHILS # (AUTO) 0.2 /CMM (0.0-0.7); EOSINOPHILS % (AUTO) 0.8 % (0.0-6.0); HEMATOCRIT 26 % (33-45); HEMOGLOBIN 8.7 g/dL (11.5-14.8); LYMPHOCYTES # (AUTO) 0.8 /CMM (0.8-4.8); LYMPHOCYTES % (AUTO) 3.7 % (20.0-44.0); MEAN CORPUSCULAR HEMOGLOBIN 29 PG (26.0-33.0); MEAN CORPUSCULAR HGB CONC 33 g/dl (31.0-36.0); MEAN CORPUSCULAR VOLUME 87 fL (82-100); MONOCYTES # (AUTO) 0.5 /CMM (0.1-1.30); MONOCYTES % (AUTO) 2.6 % (2.0-12.0); NEUTROPHILS # (AUTO) 18.8 /CMM (1.8-8.9); NEUTROPHILS % (AUTO) 92.9 % (43.0-81.0); PLATELET COUNT (AUTO) 346 /CMM (150-450); RED BLOOD CELL COUNT(AUTO) 3.01 MIL/uL (4.0-5.2); WHITE BLOOD COUNT (AUTO) 20.2 K/uL (4.3-11.0)
[2017-02-18 05:04] LABS: CALCIUM, SERUM 8.3 mg/dL (8.5-10.1); CARBON DIOXIDE 26 mmol/L (21-32); CHLORIDE 113 mmol/L (98-107); CREATININE 0.7 mg/dL (0.6-1.3); GLUCOSE 132 mg/dL (74-106); MAGNESIUM 1.6 mg/dL (1.8-2.4); PHOSPHORUS 2.6 mg/dL (2.5-4.9); POTASSIUM 3.4 mmol/L (3.5-5.1); SODIUM SERUM 147 mmol/L (136-145); UREA NITROGEN, BLOOD 27 mg/dL (7-18)
[2017-02-18 05:51] LABS: EOSINOPHILS % (MANUAL) 2 % (0-4); LYMPHOCYTES % (MANUAL) 3 % (16-48); MONOCYTES % (MANUAL) 1 % (0-11.0); NEUTROPHILS % (MANUAL) 94 (42-76)
[2017-02-18] MEDS ORDERED: VANCOMYCIN 1 GM in IV D5W 250 ML IV SCH (07:00)
--- NOTE | 2017-02-18 07:30 | NUR ---
ICU/RN - Notes Pt received in bed, opens eyes to painful stimuli. Does not follow commands. Rigid bilateral upper extremities. Pt has been off sedation since yesterday morning. On tele reading SR 70's. Orally intubated to mechanical vent with settings as ordered, tolerating well. Right nare NGT, tolerating tube feeding well, no residual noted. Ortiz catheter intact draining urine to gravity. IV patent and intact, with IVF infusing well. Safety and comfort measures in place. Will continue to monitor pt closely.
[2017-02-18] MEDS: risperiDONE 1 MG TABLET PO SCH ×2 (08:02→16:01)
[2017-02-18] MEDS: LACTOBACILLUS RHAMNOSUS GG 1 EACH CAP.SPRINK NG SCH ×2 (08:02→16:01)
[2017-02-18] MEDS: FERROUS SULFATE (325 MG) 325 MG/TAB TABLET NG SCH (08:02)
[2017-02-18] MEDS: MULTIVITAMINS,THERAGRAN 1 UDTAB TABLET GT SCH (08:02)
[2017-02-18] MEDS: LEVOTHYROXINE SODIUM 50 MCG TABLET NG SCH (08:02)
[2017-02-18] MEDS: DOXYCYCLINE HYCLATE (100 MG) 100 MG TABLET NG SCH ×2 (08:02→20:32)
[2017-02-18] MEDS: FAMOTIDINE (20 MG) 20 MG TABLET NG SCH ×2 (08:02→16:01)
[2017-02-18] MEDS: AMIODARONE HCL 200 MG TABLET NG SCH ×2 (08:03→16:00)
[2017-02-18] MEDS: PROSOURCE / PROSTAT (PYXIS) 30 ML UDC GT SCH (08:03)
[2017-02-18] MEDS: CADEXOMER IODINE 40 GM TUBE TP SCH (08:03)
[2017-02-18] MEDS: Z GUARD REMEDY 2 OZ OINT TP SCH (08:04)
[2017-02-18] MEDS ORDERED: SECONDARY IV SET 1 EA INFUS.SET MC ONE ×2 (08:23→17:37)
[2017-02-18] MEDS ORDERED: FUROSEMIDE 20 MG/2 ML VIAL IV ONE (08:30)
[2017-02-18] MEDS ORDERED: POTASSIUM CHLORIDE 20 MEQ POWDER PACKET NG SCH (08:30)
[2017-02-18] MEDS: Magnesium 1GM/D5W 100ML PREMIX 100 ML IV SCH ×2 (08:31→09:42)
--- NOTE | 2017-02-18 08:45 | NUR ---
ICU/RN - Notes Pt placed on SIMV mode, as ordered by Dr Seymour, by RT Barron. Will continue to monitor.
[2017-02-18] MEDS ORDERED: MULTIVITAMIN LIQ 5 ML UDC GT SCH (09:00)
[2017-02-18 14:16] LABS: *SPE A/G RATIO 0.5 (0.7-1.7); *SPE ALBUMIN 1.7 g/dL (2.9-4.4); *SPE ALPHA-1-GLOBULIN 0.6 g/dL (0.0-0.4); *SPE GLOBULIN, TOTAL 3.3 g/dL (2.2-3.9); *SPE M-SPIKE Not Observed g/dL (Not Observed); *SPEGAMMA GLOBULIN 0.8 g/dL (0.4-1.8)
[2017-02-18 15:19] LABS: ABG BASE EXCESS 4.6 mmol/L; ABG OXYGEN SATURATION 95.8 % (92.0-98.5); ABG PCO2 35.6 mmHg (35.0-45.0); ABG PH 7.511 (7.350-7.450); ABG PO2 80.9 mmHg (75.0-100.0); AaDO2 163.4 mmHg; COHb 0.8 % (0.5-1.5); O2Hb 94.1 % (94.0-97.0); PEEP,BG 5 cm H2O; SITE, ABG Right Radial; VT, ABG 450 mL
[2017-02-18] MEDS: NUTREN PULMONARY 1,000 ML BAG GT PRN (16:04)
[2017-02-18] MEDS ORDERED: DOSE PER PHARMACY MICAFUNGIN 1 EA XX PRN (16:30)
--- NOTE | 2017-02-18 16:45 | NUR ---
ICU/RN - Notes Wright catheter replaced as ordered. Upon changing wright catheter, pt desaturated to spO2 80%, increased work of breathing. Charge nurse, Vinicius at bedside. Pt bagged with ambubag 100% FiO2. RT paged. Pt placed back onto ventilator AC mode by RT.
--- NOTE | 2017-02-18 16:51 | NUR ---
PT PLACED BACK ON AC. DUE TO ELEVATED WORK OF BREATHING.
[2017-02-18] MEDS: MICAFUNGIN SODIUM 100 MG in IV NS 0.9% 100 ML IV SCH (18:01)
[2017-02-18] MEDS: IV NS 0.9% 250 ML IV PRN (18:22)
--- NOTE | 2017-02-18 20:30 | NUR ---
PT RECEIVED INTUBATED WITH 7.5 ETT AT 22CM AT THE LIP. NO RESP DISTRESS NOTED. PT TOLERATING VENT SETTINGS. SML AMT OF SECRETIONS. VENT ALARMS SET AND AUDIBLE. ÁNGELA LARA AT [facility]. WILL CONTINUE TO MONITOR. Addendum: 02/18/17 at 2030 by BLANCA HAWLEY RT Amended: Links added.
[2017-02-19] VITALS (54 sets, daily range): BP systolic 114–150; BP diastolic 48–88
[2017-02-19] MEDS: MEROPENEM 1 G in IV NS 0.9% 100 ML IV SCH ×2 (02:25→13:14)
[2017-02-19 04:56] LABS: EOSINOPHILS # (AUTO) 0.3 /CMM (0.0-0.7); EOSINOPHILS % (AUTO) 1.5 % (0.0-6.0); HEMATOCRIT 27 % (33-45); HEMOGLOBIN 8.9 g/dL (11.5-14.8); LYMPHOCYTES # (AUTO) 0.8 /CMM (0.8-4.8); LYMPHOCYTES % (AUTO) 4.6 % (20.0-44.0); MEAN CORPUSCULAR HEMOGLOBIN 29 PG (26.0-33.0); MEAN CORPUSCULAR HGB CONC 33 g/dl (31.0-36.0); MEAN CORPUSCULAR VOLUME 86 fL (82-100); MONOCYTES # (AUTO) 0.5 /CMM (0.1-1.30); MONOCYTES % (AUTO) 2.9 % (2.0-12.0); NEUTROPHILS # (AUTO) 15.3 /CMM (1.8-8.9); PLATELET COUNT (AUTO) 382 /CMM (150-450); RDW COEFFICIENT OF VARIATION 13.5 (11.5-15.0); RED BLOOD CELL COUNT(AUTO) 3.09 MIL/uL (4.0-5.2); WHITE BLOOD COUNT (AUTO) 16.9 K/uL (4.3-11.0)
[2017-02-19 05:07] LABS: CALCIUM, SERUM 8.6 mg/dL (8.5-10.1); CARBON DIOXIDE 31 mmol/L (21-32); CHLORIDE 110 mmol/L (98-107); CREATININE 0.7 mg/dL (0.6-1.3); GLUCOSE 120 mg/dL (74-106); POTASSIUM 3.8 mmol/L (3.5-5.1); SODIUM SERUM 147 mmol/L (136-145); UREA NITROGEN, BLOOD 29 mg/dL (7-18)
[2017-02-19 05:22] LABS: PHOSPHORUS 3.2 mg/dL (2.5-4.9); VANCOMYCIN,TROUGH 13 ug/ml (12-20)
--- NOTE | 2017-02-19 07:45 | NUR ---
ICU/RN - Notes Pt received in bed, with opens eyes. Does not follow commands. Rigid bilateral upper extremities. On tele reading SR 80's. Orally intubated to mechanical vent with settings as ordered, tolerating well. Right nare NGT, tolerating tube feeding well, no residual noted. Ortiz catheter intact draining urine to gravity. IV patent and intact, with IVF infusing well. Safety and comfort measures in place. Will continue to monitor pt closely.
[2017-02-19] MEDS: FAMOTIDINE (20 MG) 20 MG TABLET NG SCH ×2 (08:14→16:25)
[2017-02-19] MEDS: VANCOMYCIN 1 GM in IV D5W 250 ML IV SCH (08:14)
[2017-02-19] MEDS: PROSOURCE / PROSTAT (PYXIS) 30 ML UDC GT SCH (08:14)
[2017-02-19] MEDS: FERROUS SULFATE (325 MG) 325 MG/TAB TABLET NG SCH (08:15)
[2017-02-19] MEDS: risperiDONE 1 MG TABLET PO SCH (08:15)
[2017-02-19] MEDS: LACTOBACILLUS RHAMNOSUS GG 1 EACH CAP.SPRINK NG SCH ×2 (08:15→16:25)
[2017-02-19] MEDS: AMIODARONE HCL 200 MG TABLET NG SCH ×2 (08:15→16:25)
[2017-02-19] MEDS: LEVOTHYROXINE SODIUM 50 MCG TABLET NG SCH (08:15)
[2017-02-19] MEDS: MULTIVITAMINS,THERAGRAN 1 UDTAB TABLET GT SCH (08:15)
[2017-02-19] MEDS: Z GUARD REMEDY 2 OZ OINT TP SCH (08:16)
[2017-02-19] MEDS: DOXYCYCLINE HYCLATE (100 MG) 100 MG TABLET NG SCH (08:16)
[2017-02-19] MEDS: CADEXOMER IODINE 40 GM TUBE TP SCH (08:16)
--- NOTE | 2017-02-19 08:23 | NUR ---
RT PATIENT REC'D ORALLY INTUBATED ON [facility] VENT WITH SETTINGS SET PER MD SHILO GUTIERREZ. VENT ALARMS CHECKED + AUDIBLE. CUFF PRESSURE CHECKED DRAMA CRITIC. ETT SECURE AND IN PROPER POSITION. VENT PLUGGED INTO RED OUTLET. B/S DIM COARSE. SX'D WITH SM/ AMT PALE SEMITHICK SECRETIONS. PATIENT APPEARS COMFORTABLE AND IN NO DISTRESS AT THIS TIME. AMBU BAG AT [facility]. CONT CURRENT PLAN OF RESP CARE. Addendum: 02/19/17 at 1007 by MASOUD STEVE RT Amended: Links added.
--- NOTE | 2017-02-19 15:00 | NUR ---
ICU/RN - Notes Bed bath given to pt. Wound treatment carried out. Pt suctioned moderate amount of thick secretions. Repositioned for comfort.
[2017-02-19] MEDS: NUTREN PULMONARY 1,000 ML BAG GT PRN (16:25)
[2017-02-19] MEDS: IV NS 0.9% 250 ML IV PRN (16:25)
[2017-02-19] MEDS: MICAFUNGIN SODIUM 100 MG in IV NS 0.9% 100 ML IV SCH (16:26)
--- NOTE | 2017-02-19 19:30 | NUR ---
PT RECEIVED INTUBATED 7.5 ETT SECURED AT 22CM AT THE LIP. NO RESP DISTRESS. PT TOLERATING VENT SETTINGS CHARTED. NURSING TECH CUFF PRESSURE NOTED SX'D SML AMT OF THICK WHITE SECRETIONS. VENT ALARMS SET AND AUDIBLE. AMBU BAG AT [facility]. VENT PLUGGED INTO RED OUTLET. WILL CONTINUE TO MONITOR. Addendum: 02/19/17 at 2010 by NATHALIE TSAI RT Amended: Links added.
[2017-02-20] VITALS (55 sets, daily range): BP systolic 123–149; BP diastolic 54–91
[2017-02-20] MEDS: MEROPENEM 1 G in IV NS 0.9% 100 ML IV SCH ×2 (01:13→13:25)
[2017-02-20 04:53] LABS: EOSINOPHILS # (AUTO) 0.2 /CMM (0.0-0.7); HEMATOCRIT 27 % (33-45); HEMOGLOBIN 8.9 g/dL (11.5-14.8); LYMPHOCYTES # (AUTO) 1.1 /CMM (0.8-4.8); LYMPHOCYTES % (AUTO) 6.6 % (20.0-44.0); MEAN CORPUSCULAR HEMOGLOBIN 29 PG (26.0-33.0); MEAN CORPUSCULAR HGB CONC 33 g/dl (31.0-36.0); MEAN CORPUSCULAR VOLUME 87 fL (82-100); MONOCYTES # (AUTO) 0.7 /CMM (0.1-1.30); MONOCYTES % (AUTO) 4.1 % (2.0-12.0); NEUTROPHILS % (AUTO) 88.3 % (43.0-81.0); PLATELET COUNT (AUTO) 400 /CMM (150-450); RDW COEFFICIENT OF VARIATION 13.3 (11.5-15.0); RED BLOOD CELL COUNT(AUTO) 3.08 MIL/uL (4.0-5.2)
[2017-02-20 05:04] LABS: CALCIUM, SERUM 8.7 mg/dL (8.5-10.1); CARBON DIOXIDE 32 mmol/L (21-32); CHLORIDE 106 mmol/L (98-107); CREATININE 0.6 mg/dL (0.6-1.3); GLUCOSE 118 mg/dL (74-106); MAGNESIUM 1.8 mg/dL (1.8-2.4); PHOSPHORUS 2.9 mg/dL (2.5-4.9); POTASSIUM 4.2 mmol/L (3.5-5.1); SODIUM SERUM 143 mmol/L (136-145); UREA NITROGEN, BLOOD 26 mg/dL (7-18)
--- NOTE | 2017-02-20 07:47 | NUR ---
Pt received on mechanical vent on AC mode. Pt is intubated with 7.5 ETT at 22cm at the lip. Vent mode changed to SIMV per MD order. Addendum: 02/20/17 at 0748 by RUFINO FARRIS RT Amended: Links added.
[2017-02-20] MEDS: LEVOTHYROXINE SODIUM 50 MCG TABLET NG SCH (07:57)
[2017-02-20] MEDS: VANCOMYCIN 1 GM in IV D5W 250 ML IV SCH (07:57)
[2017-02-20 08:58] LABS: ABG BASE EXCESS 7.2 mmol/L; ABG OXYGEN SATURATION 97.7 % (92.0-98.5); ABG PCO2 43.5 mmHg (35.0-45.0); ABG PH 7.477 (7.350-7.450); ABG PO2 116.8 mmHg (75.0-100.0); AaDO2 118.4 mmHg; COHb 0.4 % (0.5-1.5); MetHb 0.7 % (0.0-1.5); O2Hb 96.6 % (94.0-97.0); SITE, ABG Right Radial; VENT MODE, BG SIMV 4 450 PSV 12 40% +5
[2017-02-20] MEDS: PROSOURCE / PROSTAT (PYXIS) 30 ML UDC GT SCH (09:16)
[2017-02-20] MEDS: FERROUS SULFATE (325 MG) 325 MG/TAB TABLET NG SCH (09:17)
[2017-02-20] MEDS: FAMOTIDINE (20 MG) 20 MG TABLET NG SCH ×2 (09:17→17:15)
[2017-02-20] MEDS: LACTOBACILLUS RHAMNOSUS GG 1 EACH CAP.SPRINK NG SCH ×2 (09:17→17:15)
[2017-02-20] MEDS: AMIODARONE HCL 200 MG TABLET NG SCH ×2 (09:17→17:15)
[2017-02-20] MEDS: MULTIVITAMINS,THERAGRAN 1 UDTAB TABLET GT SCH (09:17)
[2017-02-20] MEDS: CADEXOMER IODINE 40 GM TUBE TP SCH (09:18)
[2017-02-20] MEDS: Z GUARD REMEDY 2 OZ OINT TP SCH (09:18)
[2017-02-20] MEDS: MICAFUNGIN SODIUM 100 MG in IV NS 0.9% 100 ML IV SCH (17:15)
[2017-02-20] MEDS ORDERED: IV NS 0.9% 250 ML IV ONE (18:04)
[2017-02-20] MEDS: IV NS 0.9% 250 ML IV PRN (18:10)
[2017-02-20] MEDS: NUTREN PULMONARY 1,000 ML BAG GT PRN (18:12)
--- NOTE | 2017-02-20 18:40 | NUR ---
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
--- NOTE | 2017-02-20 19:30 | NUR ---
PT REC'D ON ETT 7.5 AND 22 CM SECURED @ THE LIP. NO RESP DISTRESS AT THIS TIME. PT COMFORTABLE ON VENT SETTINGS CHARTED. SX'D SML THICK CLEAR SECRETIONS. CHART PICKER CUFF PRESSURE NOTED. AMBU BAG BESIDE, VENT PLUGGED INTO RED OUTLET. ALARMS ARE SET AND AUDIBLE WILL CONTINUE TO MONITOR. Addendum: 02/20/17 at 2033 by NATHALIE TSAI RT Amended: Links added.
--- NOTE | 2017-02-20 19:30 | NUR ---
HOSPICE REGISTERED NURSE RCD PT W/DX SEPSIS, PNA; PT IS AWAKE BUT DOES NOT FOLLOW COMMANDS; NOT ON ANY SEDATION. NSR 80s ON MONITOR. ON SIMV RATE 4 PSV 12 40% +5; PT HAS THICK WHITE SECRETIONS. RIGHT NARE NG TUBE W/NUTREPULM AT 40 ML/HR; MIN RESIDUAL AT THIS TIME. ANA MIDLINE PATENT W/NS @ TKO. MODERATE AMOUNT OF URINE OUTPUT. HOB ELEVATED. BED LOCKED AND IN LOW POSITION.
[2017-02-21] VITALS (36 sets, daily range): BP systolic 105–155; BP diastolic 24–124
[2017-02-21] MEDS: MEROPENEM 1 G in IV NS 0.9% 100 ML IV SCH ×2 (02:11→13:07)
[2017-02-21 05:16] LABS: CALCIUM, SERUM 8.5 mg/dL (8.5-10.1); CARBON DIOXIDE 33 mmol/L (21-32); CHLORIDE 103 mmol/L (98-107); CREATININE 0.5 mg/dL (0.6-1.3); GLUCOSE 118 mg/dL (74-106); POTASSIUM 3.8 mmol/L (3.5-5.1); SODIUM SERUM 140 mmol/L (136-145); UREA NITROGEN, BLOOD 25 mg/dL (7-18)
--- NOTE | 2017-02-21 06:35 | NUR ---
AIR TRANSPORTATION PROVIDER PT REMAINED ON SIMV MODE; TOLERATED WELL. VSS.
--- NOTE | 2017-02-21 08:00 | NUR ---
ICU/RN PT IS INTUBATED ON THE VENT ,SIMV MODE.OFF SEDATION,EYES OPEN ,REACTIVE ON PAIN AND TOUCH STIMULATIONS.NOT FOLLOWS ANY COMMANDS.NG TUBE INFUSING WITH NUTREN AT 40 ML/HR.NO RESIDUAL.LEFT UPPER ARM MIDLINE.F/C DRAINING WITH YELLOW URINE.PT HAS BILATERAL LOWER LEGS WOUND COVERED WITH DRESSING.V/S STABLE,T-99.4.NO PAIN REPORTED AT THIS TIME.SUCTION PROVIDED.REPOSITION FOR COMFORT.LABS REVIEW.MD NOTIFIED.CONTINUE MONITORING.
[2017-02-21] MEDS ORDERED: IV SET PRIMARY PUMP SET 1 EA INFUS.SET MC ONE (08:03)
[2017-02-21] MEDS ORDERED: SECONDARY IV SET 1 EA INFUS.SET MC ONE (08:06)
[2017-02-21] MEDS: IV NS 0.9% 250 ML IV PRN (08:19)
[2017-02-21] MEDS: MULTIVITAMINS,THERAGRAN 1 UDTAB TABLET GT SCH (08:20)
[2017-02-21] MEDS: LACTOBACILLUS RHAMNOSUS GG 1 EACH CAP.SPRINK NG SCH ×2 (08:20→16:29)
[2017-02-21] MEDS: CADEXOMER IODINE 40 GM TUBE TP SCH (08:20)
[2017-02-21] MEDS: LEVOTHYROXINE SODIUM 50 MCG TABLET NG SCH (08:20)
[2017-02-21] MEDS: FAMOTIDINE (20 MG) 20 MG TABLET NG SCH ×2 (08:20→16:29)
[2017-02-21] MEDS: VANCOMYCIN 1 GM in IV D5W 250 ML IV SCH (08:20)
[2017-02-21] MEDS: FERROUS SULFATE (325 MG) 325 MG/TAB TABLET NG SCH (08:21)
[2017-02-21] MEDS: AMIODARONE HCL 200 MG TABLET NG SCH ×2 (08:21→16:29)
[2017-02-21] MEDS: PROSOURCE / PROSTAT (PYXIS) 30 ML UDC GT SCH (08:22)
[2017-02-21] MEDS: Z GUARD REMEDY 2 OZ OINT TP SCH (08:23)
[2017-02-21 08:34] LABS: ABG OXYGEN SATURATION 96.6 % (92.0-98.5); ABG PCO2 40.2 mmHg (35.0-45.0); ABG PH 7.526 (7.350-7.450); ABG PO2 95.1 mmHg (75.0-100.0); AaDO2 143.9 mmHg; MetHb 1.3 % (0.0-1.5); O2Hb 95.3 % (94.0-97.0); PEEP,BG 5 cm H2O; SITE, ABG Right Radial
--- NOTE | 2017-02-21 09:00 | NUR ---
ICU/RN DUE MEDS ARE GIVEN ORDERED.
[2017-02-21] MEDS: NUTREN PULMONARY 1,000 ML BAG GT PRN (13:07)
[2017-02-21] MEDS: MICAFUNGIN SODIUM 100 MG in IV NS 0.9% 100 ML IV SCH (16:29)
--- NOTE | 2017-02-21 17:40 | NUR ---
ICU/RN PM CARE PROVIDED.DUE MEDS ARE GIVEN ORDERED.WOUND DRESSING DONE ORDERED.SUCTION PROVIDED.REPOSITION FOR COMFORT.PT IS STILL ON SIMV MODE. CONTINUE MONITORING.
--- NOTE | 2017-02-21 18:16 | NUR ---
PATIENT RECEIVED WITH 7.5 ETT SECURED WITH ANCHOR FAST AT 22CM MID LIP LINE. ETT MOVED FROM LEFT TO RIGHT SIDE OF MOUTH THROUGHOUT THE SHIFT PER POLICY. ALARMS VERIFIED AND AUDIBLE. SUCTIONED AND LAVAGED MODERATE TO LARGE AMOUNT OF THICK TURNER/BLOOD TINGED SECRETION. VENT PLUGGED INTO RED OUTLET. AMBU BAG AT [facility].
--- NOTE | 2017-02-21 19:18 | NUR ---
Received intubated pt on mechanical vent. Pt is on SIMV mode. 7.5 ETT is secured at 22cm at the lip. Vent is plugged into a red outlet, alarms are audible, and BVM is at bedside. Addendum: 02/21/17 at 2316 by RUFINO FARRIS RT Amended: Links added.
--- NOTE | 2017-02-21 19:30 | NUR ---
APPAREL RENTAL CLERK: RECEIVED PT ORALLY INTUBATED ON SIMV MODE AND TOLERATING SETTINGS ORDERED. EYES OPEN, DOES NOT FOLLOW COMMANDS. OFF SEDATION. NO EVIDENCE OF DISCOMFORT AT THIS TIME. SR ON MANAGER OF GLOBAL. TEMP=99.3 WT COOLING MEASURES. RIGHT NGT IN PLACE AND VERIFIED PLACEMENT RUNNING NUTREN AT 40ML/HR WT NO RESIDUAL. F/C PATENT AND INTACT DRAINING YELLOW URINE. HOB ELEVATED. SAFETY PRECAUTION NOTED. WILL CONTINUE TO MONITOR.
[2017-02-22] VITALS (29 sets, daily range): BP systolic 111–165; BP diastolic 50–92
[2017-02-22] MEDS: MEROPENEM 1 G in IV NS 0.9% 100 ML IV SCH ×2 (01:52→13:51)
[2017-02-22 05:22] LABS: CARBON DIOXIDE 35 mmol/L (21-32); CHLORIDE 101 mmol/L (98-107); CREATININE 0.6 mg/dL (0.6-1.3); GLUCOSE 116 mg/dL (74-106); POTASSIUM 4.1 mmol/L (3.5-5.1); SODIUM SERUM 138 mmol/L (136-145); UREA NITROGEN, BLOOD 24 mg/dL (7-18)
--- NOTE | 2017-02-22 06:30 | NUR ---
SENIOR TELECOMMUNICATIONS CONSULTANT: NO SIGNIFICANT DAVID DURING THE SHIFT. VS WITHIN HER BASELINE. TOLERATING VENT SETTINGS ORDERED WT 02 SAT 94% AND ABOVE. WILL ENDORSE TO DAYS SHIFT FOR CONTINUITY OF CARE.
[2017-02-22] MEDS ORDERED: SECONDARY IV SET 1 EA INFUS.SET MC ONE ×3 (08:01→16:45)
[2017-02-22 08:25] LABS: BASOPHILS % (AUTO) 0.2 % (0.0-2.0); EOSINOPHILS # (AUTO) 0.1 /CMM (0.0-0.7); EOSINOPHILS % (AUTO) 0.3 % (0.0-6.0); HEMATOCRIT 27 % (33-45); HEMOGLOBIN 8.8 g/dL (11.5-14.8); LYMPHOCYTES # (AUTO) 0.9 /CMM (0.8-4.8); LYMPHOCYTES % (AUTO) 5.4 % (20.0-44.0); MEAN CORPUSCULAR HEMOGLOBIN 29 PG (26.0-33.0); MEAN CORPUSCULAR HGB CONC 33 g/dl (31.0-36.0); MEAN CORPUSCULAR VOLUME 87 fL (82-100); MONOCYTES # (AUTO) 0.4 /CMM (0.1-1.30); MONOCYTES % (AUTO) 2.2 % (2.0-12.0); NEUTROPHILS # (AUTO) 15.3 /CMM (1.8-8.9); NEUTROPHILS % (AUTO) 91.9 % (43.0-81.0); PLATELET COUNT (AUTO) 408 /CMM (150-450); RDW COEFFICIENT OF VARIATION 13.5 (11.5-15.0); RED BLOOD CELL COUNT(AUTO) 3.08 MIL/uL (4.0-5.2); WHITE BLOOD COUNT (AUTO) 16.7 K/uL (4.3-11.0)
[2017-02-22] MEDS: VANCOMYCIN 1 GM in IV D5W 250 ML IV SCH (08:29)
[2017-02-22] MEDS: AMIODARONE HCL 200 MG TABLET NG SCH ×2 (08:30→16:46)
[2017-02-22] MEDS: FAMOTIDINE (20 MG) 20 MG TABLET NG SCH ×2 (08:32→16:46)
[2017-02-22] MEDS: FERROUS SULFATE (325 MG) 325 MG/TAB TABLET NG SCH (08:32)
[2017-02-22] MEDS: PROSOURCE / PROSTAT (PYXIS) 30 ML UDC GT SCH (08:34)
[2017-02-22] MEDS: Z GUARD REMEDY 2 OZ OINT TP SCH (08:34)
[2017-02-22] MEDS: CADEXOMER IODINE 40 GM TUBE TP SCH (08:34)
[2017-02-22] MEDS: LACTOBACILLUS RHAMNOSUS GG 1 EACH CAP.SPRINK NG SCH ×2 (08:39→16:46)
[2017-02-22] MEDS: MULTIVITAMINS,THERAGRAN 1 UDTAB TABLET GT SCH (08:39)
[2017-02-22] MEDS: LEVOTHYROXINE SODIUM 50 MCG TABLET NG SCH (08:40)
[2017-02-22] MEDS: IV NS 0.9% 250 ML IV PRN (08:40)
--- NOTE | 2017-02-22 11:18 | NUR ---
PT PLACED ON T-PIECE COOL AEROSOL @10LPM, 60% FIO2. PT TOLERATED SIMV OVERNIGHT. PT IS AWAKE AND ALERT, FOLLOWING COMMANDS. SEEN BY PULMONARY DR. VALENCIA. Addendum: 02/22/17 at 1120 by KATARZYNA FELTON RT Amended: Links added.
[2017-02-22] MEDS: NUTREN PULMONARY 1,000 ML BAG GT PRN (14:23)
[2017-02-22] MEDS: MICAFUNGIN SODIUM 100 MG in IV NS 0.9% 100 ML IV SCH (16:49)
--- NOTE | 2017-02-22 17:00 | NUR ---
ICU/FABRICATOR INDUSTRIAL FURNACE DRESSING DONE ORDERED.PM CARE PROVIDED.PT IS ON COOL AEROSOL AT 10 L,SAT O2-97%.V/S STABLE AFEBRILE.NO PAIN REPORTED AT THIS TIME.GENERALIZED EDEMA PRESENT.LEFT UPPER ARM VERY SWOLLEN.MD NOTIFIED.F/C DRAINING WITH YELLOW URINE.DUE MEDS ARE GIVEN ORDERED.NG TUBE INFUSING WITH NUTREN AT 45 ML/HR NO RESIDUAL NOTED.SUCTION PROVIDED REPOSITION FOR COMFORT.
[2017-02-22 18:52] LABS: ABG BASE EXCESS 12.9 mmol/L; ABG PCO2 43.7 mmHg (35.0-45.0); ABG PH 7.542 (7.350-7.450); ABG PO2 126.3 mmHg (75.0-100.0); AaDO2 108.6 mmHg; COHb 0.1 % (0.5-1.5); MetHb 0.6 % (0.0-1.5); O2Hb 97.3 % (94.0-97.0); SITE, ABG Right Radial; VENT MODE, BG COOL AEROSOL
--- NOTE | 2017-02-22 19:10 | NUR ---
RN INITIAL NOTES RECEIVED PT ASLEEP ON BED, AROUSABLE TO NAME AND TOUCH. OPENS EYES ONLY, DOES NOT FOLLOW COMMANDS. INTUBATED ETT 7.5@ LIP, ON COOL AEROSOL, 40% FIO2, 10L, SATURATING WELL, NO S/S OF RESP DISTRESS. CURRENTLY SR ON THE MONITOR, HR 70-80'S. RIGHT NARE NGT WITH NUTREN FEEDING @ 40MLS/HR, NO RESIDUALS, TOLERATING WELL. WEI CATH INTACT. LEFT UPPER ARM MIDLINE TKO, FLUSHED AND PATENT, NO S/S OF INFILTRATION/INFECTION, DRESSING CDI. BED LOW AND LOCKED, SIDERAILS UP, BED ALARM ON. WILL MONITOR
--- NOTE | 2017-02-22 20:45 | NUR ---
RN NOTES PATIENT'S SON ART AND 2 OTHER FAMILY MEMBERS ARE HERE TO VISIT THE PATIENT. PER FAMILY, PATIENT'S CURRENT ORIENTATION IS NOT HER BASELINE. THEY SAID THAT PATIENT'S BASELINE IS A/OX4.
[2017-02-23] VITALS (25 sets, daily range): BP systolic 98–156; BP diastolic 42–82
[2017-02-23] MEDS: MEROPENEM 1 G in IV NS 0.9% 100 ML IV SCH ×2 (01:01→14:16)
[2017-02-23 04:50] LABS: CALCIUM, SERUM 8.9 mg/dL (8.5-10.1); CARBON DIOXIDE 37 mmol/L (21-32); CHLORIDE 99 mmol/L (98-107); CREATININE 0.5 mg/dL (0.6-1.3); GLUCOSE 110 mg/dL (74-106); POTASSIUM 3.9 mmol/L (3.5-5.1); SODIUM SERUM 137 mmol/L (136-145); UREA NITROGEN, BLOOD 21 mg/dL (7-18)
--- NOTE | 2017-02-23 05:26 | NUR ---
RT NOTE: RECEIVED PATIENT ORALLY INTUBATED WITH 7.5 ETT SECURED WITH ANCHOR FAST AT 22 CM MID LIP LINE ON 40% COOL AEROSOL AT 10LPM. PATIENT TOLERATING WELL. ETT MOVED FROM LEFT TO RIGHT SIDE OF MOUTH PER POLICY. SUCTIONED AND LAVAGED MODERATE-LARGE AMOUNT OF THICK TURNER SECRETIONS VIA ETT AND ORALLY. AMBU BAG AT [facility].
--- NOTE | 2017-02-23 06:30 | NUR ---
RN CLOSING NOTES PT REMAINS STABLE OF THE MOMENT. REMAINS TO BE LETHARGIC. ALL DUE MEDS GIVEN, AM CARE PROVIDED. WILL ENDORSE CONTINUITY OF CARE TO AM RN
[2017-02-23 07:40] LABS: EOSINOPHILS % (AUTO) 0.2 % (0.0-6.0); HEMATOCRIT 26 % (33-45); HEMOGLOBIN 8.5 g/dL (11.5-14.8); LYMPHOCYTES # (AUTO) 0.8 /CMM (0.8-4.8); LYMPHOCYTES % (AUTO) 4.8 % (20.0-44.0); MEAN CORPUSCULAR HEMOGLOBIN 29 PG (26.0-33.0); MEAN CORPUSCULAR HGB CONC 33 g/dl (31.0-36.0); MEAN CORPUSCULAR VOLUME 87 fL (82-100); MONOCYTES # (AUTO) 0.7 /CMM (0.1-1.30); MONOCYTES % (AUTO) 4.1 % (2.0-12.0); NEUTROPHILS # (AUTO) 14.9 /CMM (1.8-8.9); NEUTROPHILS % (AUTO) 90.9 % (43.0-81.0); PLATELET COUNT (AUTO) 421 /CMM (150-450); RED BLOOD CELL COUNT(AUTO) 2.95 MIL/uL (4.0-5.2); WHITE BLOOD COUNT (AUTO) 16.4 K/uL (4.3-11.0)
--- NOTE | 2017-02-23 07:45 | NUR ---
CHERRY PITTER; ASSESSMENT RECEIVED PT VENTED VIA ETT ON COOL AEROSOL 40% FIO2 10L. PT LETHARGIC OPENS EYES TO TACTILE STIMULI. DOES NOT FOLLOW COMMANDS. PT MIDLINE TO LEFT UPPER ARM, ABLE TO FLUSH WITHOUT RESISTANCE, UNABLE TO WITHDRAW BLOOD. WEI CATH INTACT DRAINING TO GRAVITY CLEAR YELLOW URINE. NG TUBE TO RIGHT NARE WITH TUBE FEEDING NUTREN AT 40ML/HR, NO RESIDUAL NOTED, POSITIVE FOR AUSCULTATION AND ASPIRATION. NO ACUTE DISTRESS NOTED. WILL CONTINUE TO MONITOR CLOSELY.
[2017-02-23] MEDS: MULTIVITAMINS,THERAGRAN 1 UDTAB TABLET GT SCH (08:11)
[2017-02-23] MEDS: FAMOTIDINE (20 MG) 20 MG TABLET NG SCH ×2 (08:11→17:14)
[2017-02-23] MEDS: LEVOTHYROXINE SODIUM 50 MCG TABLET NG SCH (08:11)
[2017-02-23] MEDS: VANCOMYCIN 1 GM in IV D5W 250 ML IV SCH (08:11)
[2017-02-23] MEDS: AMIODARONE HCL 200 MG TABLET NG SCH ×2 (08:11→17:14)
[2017-02-23] MEDS: LACTOBACILLUS RHAMNOSUS GG 1 EACH CAP.SPRINK NG SCH ×2 (08:11→17:15)
[2017-02-23] MEDS: FERROUS SULFATE (325 MG) 325 MG/TAB TABLET NG SCH (08:11)
[2017-02-23] MEDS: Z GUARD REMEDY 2 OZ OINT TP SCH (08:12)
[2017-02-23] MEDS: CADEXOMER IODINE 40 GM TUBE TP SCH (08:12)
[2017-02-23 08:35] LABS: ABG BASE EXCESS 15.4 mmol/L; ABG OXYGEN SATURATION 98.5 % (92.0-98.5); ABG PCO2 41.7 mmHg (35.0-45.0); ABG PH 7.584 (7.350-7.450); ABG PO2 139.7 mmHg (75.0-100.0); AaDO2 97.5 mmHg; COHb 0.5 % (0.5-1.5); MetHb 0.5 % (0.0-1.5); O2Hb 97.5 % (94.0-97.0); SITE, ABG Right Radial; VENT MODE, BG ETT COOL AERO 40%
[2017-02-23] MEDS: IV NS 0.9% 250 ML IV PRN (08:47)
[2017-02-23] MEDS: PROSOURCE / PROSTAT (PYXIS) 30 ML UDC GT SCH (08:47)
[2017-02-23] MEDS: MICAFUNGIN SODIUM 100 MG in IV NS 0.9% 100 ML IV SCH (17:14)
--- NOTE | 2017-02-23 19:20 | NUR ---
RN OPENING NOTES: RECEIVED PT ON BED ASLEEP, AROUSABLE THROUGH TACTILE STIMULI, OPENS EYES, UNABLE TO TRACK. INTUBATED WITH ETT AT 23 ON THE LIP CONNECTED TO TPIECE COOL AEROSOL AT 40% FIO2 10LPM. SR ON MONITOR HR AT 74 BPM. WITH NGT ON R NARE INTACT, CHECKED PLACEMENT THROUGH AUSCULTATION AND REDRAW OF GASTRIC SECRETIONS. IV ACCESS ON ANA MIDLINE PATENT AND INTACT, WITH ONGOING NS TKO. FC INTACT TO A CLOSED SYSTEM, TO MONITOR UO CLOSELY. SAFETY MEASURES ENSURED. ASPIRATION PREC OBSERVED, SUCTIONED PRN. CONTINUOUSLY MONITORED CLOSELY.
--- NOTE | 2017-02-23 21:30 | NUR ---
RN NOTES: SPOKE TO PATIENT'S SON ART OVER THE PHONE AND UPDATED RE PATIENT'S STATUS. ART WANTED TO SPEAK WITH A DOCTOR AND BE UPDATED BY AN MD ABOUT TREATMENT PLAN FOR PATIENT WELL DECISION MAKING FOR PATIENT'S CARE. ASSURED SON THAT THIS WILL BE COMMUNICATED TO THE MORNING SHIFT.
[2017-02-23] MEDS: NUTREN PULMONARY 1,000 ML BAG GT PRN (21:49)
[2017-02-24] VITALS (24 sets, daily range): BP systolic 102–157; BP diastolic 54–81
[2017-02-24] MEDS: MEROPENEM 1 G in IV NS 0.9% 100 ML IV SCH ×2 (03:34→14:27)
--- NOTE | 2017-02-24 04:30 | NUR ---
RN NOTES: NOTED SKIN AROUND MIDLINE AREA MEDIAL TO PATIENT TO BE RED AND WARM TO TOUCH. UNABLE TO WITHDRAW BLOOD FROM MIDLINE ALTHOUGH IT WAS FLUSHING WELL. STOPPED ONGOING TKO AND INSERTED A PERIPHERAL IV ON RFA G22. ELEVATED AFFECTED AREA AT THIS TIME AND TO CONTINUE TO MONITOR.
[2017-02-24 05:34] LABS: CALCIUM, SERUM 8.7 mg/dL (8.5-10.1); CARBON DIOXIDE 38 mmol/L (21-32); CHLORIDE 100 mmol/L (98-107); CREATININE 0.6 mg/dL (0.6-1.3); GLUCOSE 115 mg/dL (74-106); POTASSIUM 3.8 mmol/L (3.5-5.1); SODIUM SERUM 139 mmol/L (136-145); UREA NITROGEN, BLOOD 22 mg/dL (7-18)
--- NOTE | 2017-02-24 06:44 | NUR ---
RN CLOSING NOTES: PT REMAINS IN BED NOT IN APPARENT DISTRESS. ETT TO COOL AEROSOL MAINTAINED, TOLERATED WELL. NO FURTHER DECLINE NOR IMPROVEMENT ON PATIENT'S MENTAL STATUS. ANA MIDLINE KEPT LOCKED, SURROUNDING AREA NOTED TO BE LESS ERYTHEMATOUS. RIGHT PERIPHERAL IV SITE REMAINED INTACT. FC INTACT, UO DRAINED AND DOCUMENTED. SAFETY MEASURES ENSURED AT ALL TIMES. SKIN CARE RENDERED; WOUND PHOTODOCUMENTATION SIGNED. CONTINUOUSLY MONITORED PATIENT; TO ENDORSE TO AM SHIFT RN.
--- NOTE | 2017-02-24 08:05 | NUR ---
ICU/RN PT IS INTUBATED ,T-TUBE FIO2-40%,SAT O2-96-97%.V/S STABLE,AFEBRILE.NO PAIN REPORTED AT THIS TIME.EYES OPEN REACTIVE ON PAIN STIMULATIONS.NG TUBE INFUSING WITH NUTREN AT 40 ML/HR.NO RESIDUAL NOTED. MIDLINE ON THE LEFT ARM .LEFT UPPER ARM VERY SWOLLEN ,WARM AND RED.F/C DRAINING WITH YELLOW URINE.LOWER LEGS WOUNDS COVERED WITH DRESSING.SACRUM AREA WOUND COVERED WITH MEPILEX.GENERALIZED EDEMA PRESENT.SUCTION PROVIDED.REPOSITION FOR COMFORT.LABS REVIEW.
[2017-02-24] MEDS: AMIODARONE HCL 200 MG TABLET NG SCH ×2 (08:07→17:33)
[2017-02-24] MEDS: LACTOBACILLUS RHAMNOSUS GG 1 EACH CAP.SPRINK NG SCH ×2 (08:07→17:33)
[2017-02-24] MEDS: FERROUS SULFATE (325 MG) 325 MG/TAB TABLET NG SCH (08:10)
[2017-02-24] MEDS: MULTIVITAMINS,THERAGRAN 1 UDTAB TABLET GT SCH (08:10)
[2017-02-24] MEDS: LEVOTHYROXINE SODIUM 50 MCG TABLET NG SCH (08:10)
[2017-02-24] MEDS: FAMOTIDINE (20 MG) 20 MG TABLET NG SCH ×2 (08:10→17:32)
[2017-02-24] MEDS: PROSOURCE / PROSTAT (PYXIS) 30 ML UDC GT SCH (08:11)
[2017-02-24] MEDS: CADEXOMER IODINE 40 GM TUBE TP SCH (08:11)
[2017-02-24] MEDS: Z GUARD REMEDY 2 OZ OINT TP SCH (08:11)
[2017-02-24] MEDS: VANCOMYCIN 1 GM in IV D5W 250 ML IV SCH (08:47)
--- NOTE | 2017-02-24 09:10 | NUR ---
ICU/RN DUE MEDS ARE GIVEN ORDERED.
--- NOTE | 2017-02-24 11:00 | NUR ---
ICU/RN LEFT UPPER ARM MIDLINE REMOVED.NEW UPPER ARM MIDLINE PLACED ORDERED .
--- NOTE | 2017-02-24 17:25 | NUR ---
ICU/RN PM CARE PROVIDED.WOUND DRESSING DONE ORDERED.DUE MEDS ARE GIVEN .CONSENT FOR TRACHEOSTOMY DONE.V/S STABLE AFEBRILE.SUCTION PROVIDED.REPOSITION FOR COMFORT.CONTINUE MONITORING.
[2017-02-24] MEDS: MICAFUNGIN SODIUM 100 MG in IV NS 0.9% 100 ML IV SCH (17:32)
--- NOTE | 2017-02-24 23:54 | NUR ---
CONCERT OR LECTURE HALL MANAGER NOTES RECEIVED PT IN BED, OPEN EYES TO STIMULI. DOES NOT FOLLOW COMMANDS. ON T-TUBE VIA 7.5 ETT, 22CM AT LIPS, 10 LPM, FIO2 40%, SHILO WELL. TELE READS SR AT [address], RUNNING NUTREN AT 40 ML/HR. NO RESIDUAL. JEANNE MIDLINE RUNNING NS AT TKO. WEI CATH IN PLACE, DRAINING WELL. HOB ELEVATED, SIDE RAILS X3. TURNED AND REPOSITIONED, EXTREMITIES OFFLOADED. ON DROPLET ISOLATION FOR SPUTUM AND CONTACT ISOLATION FOR URINE AND WOUNDS.
[2017-02-25] VITALS (25 sets, daily range): BP systolic 115–164; BP diastolic 52–88
[2017-02-25] MEDS: NUTREN PULMONARY 1,000 ML BAG GT PRN (00:58)
[2017-02-25] MEDS: MEROPENEM 1 G in IV NS 0.9% 100 ML IV SCH ×2 (01:12→14:16)
[2017-02-25] MEDS: IV NS 0.9% 250 ML IV PRN (01:27)
[2017-02-25] MEDS: VANCOMYCIN 1 GM in IV D5W 250 ML IV SCH ×2 (01:44→20:43)
[2017-02-25 04:53] LABS: HEMATOCRIT 24 % (33-45); LYMPHOCYTES % (AUTO) 6.6 % (20.0-44.0); MEAN CORPUSCULAR HEMOGLOBIN 29 PG (26.0-33.0); MEAN CORPUSCULAR HGB CONC 33 g/dl (31.0-36.0); MEAN CORPUSCULAR VOLUME 87 fL (82-100); MONOCYTES # (AUTO) 0.8 /CMM (0.1-1.30); MONOCYTES % (AUTO) 5.2 % (2.0-12.0); NEUTROPHILS # (AUTO) 13.9 /CMM (1.8-8.9); NEUTROPHILS % (AUTO) 88.2 % (43.0-81.0); PLATELET COUNT (AUTO) 485 /CMM (150-450); RDW COEFFICIENT OF VARIATION 14.1 (11.5-15.0); RED BLOOD CELL COUNT(AUTO) 2.78 MIL/uL (4.0-5.2); WHITE BLOOD COUNT (AUTO) 15.7 K/uL (4.3-11.0)
[2017-02-25 05:10] LABS: INR 1.03 (0.87-1.13)
[2017-02-25 05:28] LABS: CALCIUM, SERUM 8.9 mg/dL (8.5-10.1); CARBON DIOXIDE 38 mmol/L (21-32); CHLORIDE 99 mmol/L (98-107); CREATININE 0.5 mg/dL (0.6-1.3); GLUCOSE 114 mg/dL (74-106); MAGNESIUM 1.8 mg/dL (1.8-2.4); PHOSPHORUS 2.6 mg/dL (2.5-4.9); SODIUM SERUM 139 mmol/L (136-145); UREA NITROGEN, BLOOD 20 mg/dL (7-18)
[2017-02-25 06:02] LABS: LYMPHOCYTES % (MANUAL) 2 % (16-48); MONOCYTES % (MANUAL) 4 % (0-11.0); NEUTROPHILS % (MANUAL) 94 (42-76)
[2017-02-25] MEDS: CADEXOMER IODINE 40 GM TUBE TP SCH (08:32)
[2017-02-25] MEDS: Z GUARD REMEDY 2 OZ OINT TP SCH (08:32)
[2017-02-25] MEDS: FERROUS SULFATE (325 MG) 325 MG/TAB TABLET NG SCH (08:36)
[2017-02-25] MEDS: FAMOTIDINE (20 MG) 20 MG TABLET NG SCH ×2 (08:36→17:09)
[2017-02-25] MEDS: MULTIVITAMINS,THERAGRAN 1 UDTAB TABLET GT SCH (08:36)
[2017-02-25] MEDS: AMIODARONE HCL 200 MG TABLET NG SCH ×2 (08:36→17:10)
[2017-02-25] MEDS: LACTOBACILLUS RHAMNOSUS GG 1 EACH CAP.SPRINK NG SCH ×2 (08:36→17:09)
[2017-02-25] MEDS: LEVOTHYROXINE SODIUM 50 MCG TABLET NG SCH (08:36)
[2017-02-25] MEDS: PROSOURCE / PROSTAT (PYXIS) 30 ML UDC GT SCH (08:37)
[2017-02-25] MEDS ORDERED: acetaZOLAMIDE SODIUM 500 MG/VIAL VIAL IV ONE (17:00)
[2017-02-25] MEDS: MICAFUNGIN SODIUM 100 MG in IV NS 0.9% 100 ML IV SCH (17:09)
--- NOTE | 2017-02-25 20:51 | NUR ---
FIELD PROPERTY LOSS SPECIALIST NOTES RECEIVED PT IN BED, OPEN EYES TO STIMULI. DOES NOT FOLLOW COMMANDS. ON T-TUBE VIA 7.5 ETT, 22CM AT LIPS, 10 LPM, FIO2 40%, SHILO WELL. TELE READS SR AT [address] IN PL[address], RUNNING NUTREN AT 40 ML/HR. NO RESIDUAL. JEANNE MIDLINE RUNNING NS AT TKO. WEI CATH IN PLACE, DRAINING WELL. HOB ELEVATED, SIDE RAILS X3. TURNED AND REPOSITIONED, EXTREMITIES OFFLOADED. ON DROPLET ISOLATION FOR SPUTUM AND CONTACT ISOLATION FOR URINE AND WOUNDS.
--- NOTE | 2017-02-25 21:57 | NUR ---
PT RECEIVED INTUBATED ON COOL AEROSOL 40%. 7.5 ETT SECURED AT 23CM AT THE LIP. MOD AMT OF THICK WHITE SECRETIONS. STERILE WATER CHANGED. ETT SECURED. Addendum: 02/25/17 at 2204 by BLANCA HAWLEY RT Amended: Links added.
[2017-02-26] VITALS (52 sets, daily range): BP systolic 100–168; BP diastolic 49–86
[2017-02-26] MEDS: MEROPENEM 1 G in IV NS 0.9% 100 ML IV SCH ×2 (01:52→14:41)
[2017-02-26] MEDS: IV NS 0.9% 250 ML IV PRN (01:52)
[2017-02-26 04:39] LABS: BASOPHILS % (AUTO) 0.1 % (0.0-2.0); HEMATOCRIT 23 % (33-45); HEMOGLOBIN 7.6 g/dL (11.5-14.8); LYMPHOCYTES # (AUTO) 1.1 /CMM (0.8-4.8); LYMPHOCYTES % (AUTO) 7.9 % (20.0-44.0); MEAN CORPUSCULAR HEMOGLOBIN 28 PG (26.0-33.0); MEAN CORPUSCULAR HGB CONC 33 g/dl (31.0-36.0); MEAN CORPUSCULAR VOLUME 87 fL (82-100); MONOCYTES # (AUTO) 0.8 /CMM (0.1-1.30); MONOCYTES % (AUTO) 5.7 % (2.0-12.0); NEUTROPHILS # (AUTO) 11.8 /CMM (1.8-8.9); NEUTROPHILS % (AUTO) 86.3 % (43.0-81.0); PLATELET COUNT (AUTO) 494 /CMM (150-450); RDW COEFFICIENT OF VARIATION 13.8 (11.5-15.0); RED BLOOD CELL COUNT(AUTO) 2.69 MIL/uL (4.0-5.2); WHITE BLOOD COUNT (AUTO) 13.7 K/uL (4.3-11.0)
[2017-02-26 04:56] LABS: CALCIUM, SERUM 9.2 mg/dL (8.5-10.1); CARBON DIOXIDE 38 mmol/L (21-32); CHLORIDE 101 mmol/L (98-107); CREATININE 0.6 mg/dL (0.6-1.3); GLUCOSE 97 mg/dL (74-106); MAGNESIUM 2.1 mg/dL (1.8-2.4); PHOSPHORUS 3.4 mg/dL (2.5-4.9); POTASSIUM 3.6 mmol/L (3.5-5.1); SODIUM SERUM 140 mmol/L (136-145); UREA NITROGEN, BLOOD 21 mg/dL (7-18)
[2017-02-26] MEDS: LEVOTHYROXINE SODIUM 50 MCG TABLET NG SCH (07:30)
--- NOTE | 2017-02-26 07:34 | NUR ---
PROP DRAWER RECEIVED PATIENT FROM THE PREVIOUS SHIFT. PATIENT IS IN BED. RESTING COMFORTABLY. NO ACUTE DISTRESS NOTED. EVEN AND NON LABORED BREATHING PATTERN. SUCTIONED ETT FOR CLEARANCE. PATIENT GRIMACES FOR PAINFUL STIMULI. AFEBRILE. SINUS RHYTHM ON MONITOR. TURNED AND REPOSITIONED FOR COMFORT AND WOUND PREVENTION. WILL CONTINUE TO MONITOR AND PROVIDE CARE.
[2017-02-26] MEDS: PROSOURCE / PROSTAT (PYXIS) 30 ML UDC GT SCH ×2 (08:26→16:35)
[2017-02-26] MEDS: AMIODARONE HCL 200 MG TABLET NG SCH ×2 (08:26→16:35)
[2017-02-26] MEDS: MULTIVITAMINS,THERAGRAN 1 UDTAB TABLET GT SCH (08:26)
[2017-02-26] MEDS: FAMOTIDINE (20 MG) 20 MG TABLET NG SCH ×2 (08:28→16:35)
[2017-02-26] MEDS: FERROUS SULFATE (325 MG) 325 MG/TAB TABLET NG SCH (08:28)
[2017-02-26] MEDS: LACTOBACILLUS RHAMNOSUS GG 1 EACH CAP.SPRINK NG SCH ×2 (08:28→16:35)
[2017-02-26] MEDS: Z GUARD REMEDY 2 OZ OINT TP SCH (08:29)
[2017-02-26] MEDS: CADEXOMER IODINE 40 GM TUBE TP SCH (08:29)
[2017-02-26] MEDS ORDERED: LIDOCAINE 1%-EPI 1:100,000 20 ML VIAL ONE (10:23)
[2017-02-26] MEDS ORDERED: FENTANYL PF 100MCG/2ML AMPUL ONE (12:57)
[2017-02-26] MEDS ORDERED: ROCURONIUM BROMIDE 50 MG/5 ML ONE (12:57)
[2017-02-26] MEDS ORDERED: NEOMY SULF/BACITRAC ZN/POLY 15 GM TUBE TP ONE (13:07)
--- NOTE | 2017-02-26 13:39 | NUR ---
RT PATIENT REC'D FROM OR NEWLY TRACHED WITH A SHILEY 8, PLACED ON PREVIOUS VENT SETTINGS PER DR OLIVAS. AC12, 450, 40%, +5 SHILO WELL. VENT ALARMS CHECKED + AUDIBLE. CUFF PRESSURE CHECKED PROJECT INTERNSH[employer]. TRACH SECURE AND IN PROPER POSITION. VENT PLUGGED INTO RED OUTLET. AMBU BAG AT HOB Addendum: 02/26/17 at 1342 by MASOUD STEVE RT Amended: Links added.
[2017-02-26] MEDS ORDERED: IV NS 0.9% 250 ML IV ONE (14:32)
[2017-02-26] MEDS ORDERED: BLOOD IV SET 1 EA INFUS.SET MC ONE (14:32)
[2017-02-26] MEDS ORDERED: SECONDARY IV SET 1 EA INFUS.SET MC ONE ×2 (14:39→19:59)
[2017-02-26] MEDS: MICAFUNGIN SODIUM 100 MG in IV NS 0.9% 100 ML IV SCH (16:35)
--- NOTE | 2017-02-26 19:30 | NUR ---
Received patient from previous shift RN,CHASE.Patient grimaces to painful stimuli not opening eyes, non verbal.With trach to mechanical vent on ac mode and well tolerated.Saturation 97%. Respiration unlabored.SR.Afebrile.Right NGT feeding in progress.Placement verified.No residual noted.FC with cloudy yellow urine.No distress noted.With multiple skin issues.Skin care protocol implemented.Contact isolation precaution observed.
[2017-02-26] MEDS: VANCOMYCIN 1 GM in IV D5W 250 ML IV SCH (20:01)
--- NOTE | 2017-02-26 21:30 | NUR ---
ICU/RN RESTRAINTS DC'D.PT LETHARGIC,OPENS EYES TO TACTILE STIM.DOES NOT TRACK,DOES NOT FOLLOW COMMANDS.
--- NOTE | 2017-02-26 21:58 | NUR ---
Patient in no distress.Transferred to [facility] RM 101 via ACLS protocol accompanied by RN,RT and RADIO DISPATCHER. Report given to Lorna Nicholsonfor continuity of care as ICU overflow.
--- NOTE | 2017-02-26 22:00 | NUR ---
ICU/RN RECEIVED PT FROM ICU RM 262 ICU OF.PT ON VENT VIA TRACH,[id number]% SAT.97%.PT UNRESPONSIVE TO VERBAL COMMANDS AND TO TACTILE STIM.
[2017-02-27] VITALS (38 sets, daily range): BP systolic 101–181; BP diastolic 53–93
--- NOTE | 2017-02-27 | NUR ---
ICU/RN TUBE FEEDING HELD,PT FOR PEG PLACEMENT IN AM.REPOSITIONED AND TURNED
[2017-02-27] MEDS: IV NS 0.9% 250 ML IV PRN (02:01)
[2017-02-27] MEDS: MEROPENEM 1 G in IV NS 0.9% 100 ML IV SCH ×2 (02:01→14:06)
[2017-02-27 04:57] LABS: BASOPHILS % (AUTO) 0.1 % (0.0-2.0); EOSINOPHILS # (AUTO) 0.2 /CMM (0.0-0.7); EOSINOPHILS % (AUTO) 1.6 % (0.0-6.0); HEMATOCRIT 27 % (33-45); LYMPHOCYTES # (AUTO) 0.9 /CMM (0.8-4.8); LYMPHOCYTES % (AUTO) 6.2 % (20.0-44.0); MEAN CORPUSCULAR HEMOGLOBIN 29 PG (26.0-33.0); MEAN CORPUSCULAR HGB CONC 34 g/dl (31.0-36.0); MEAN CORPUSCULAR VOLUME 86 fL (82-100); MONOCYTES # (AUTO) 0.8 /CMM (0.1-1.30); MONOCYTES % (AUTO) 5.5 % (2.0-12.0); NEUTROPHILS # (AUTO) 12.6 /CMM (1.8-8.9); NEUTROPHILS % (AUTO) 86.6 % (43.0-81.0); PLATELET COUNT (AUTO) 461 /CMM (150-450); RDW COEFFICIENT OF VARIATION 13.8 (11.5-15.0); RED BLOOD CELL COUNT(AUTO) 3.09 MIL/uL (4.0-5.2); WHITE BLOOD COUNT (AUTO) 14.6 K/uL (4.3-11.0)
--- NOTE | 2017-02-27 05:00 | NUR ---
ICU/RN COMPLETE BED BATH GIVEN.SUCTIONED FOR SCANT PALE YELLOW SECRETIONS FROM ETT.ORAL CARE DONE
[2017-02-27 05:17] LABS: CALCIUM, SERUM 8.9 mg/dL (8.5-10.1); CARBON DIOXIDE 34 mmol/L (21-32); CHLORIDE 104 mmol/L (98-107); CREATININE 0.6 mg/dL (0.6-1.3); GLUCOSE 91 mg/dL (74-106); PHOSPHORUS 3.3 mg/dL (2.5-4.9); POTASSIUM 3.6 mmol/L (3.5-5.1); SODIUM SERUM 143 mmol/L (136-145); UREA NITROGEN, BLOOD 21 mg/dL (7-18)
[2017-02-27] MEDS: LEVOTHYROXINE SODIUM 50 MCG TABLET NG SCH (07:30)
--- NOTE | 2017-02-27 08:07 | NUR ---
[facility] settings as ordered zero distress noted at this time. alarms set and audible. trach midline small pale yellow sputum. Addendum: 02/27/17 at 0808 by JENS NGO RT Amended: Links added.
[2017-02-27] MEDS: AMIODARONE HCL 200 MG TABLET NG SCH ×2 (08:45→17:24)
[2017-02-27] MEDS: MULTIVITAMINS,THERAGRAN 1 UDTAB TABLET GT SCH (08:45)
[2017-02-27] MEDS: PROSOURCE / PROSTAT (PYXIS) 30 ML UDC GT SCH ×2 (08:45→17:23)
[2017-02-27] MEDS: LACTOBACILLUS RHAMNOSUS GG 1 EACH CAP.SPRINK NG SCH ×2 (08:46→17:23)
[2017-02-27] MEDS: FERROUS SULFATE (325 MG) 325 MG/TAB TABLET NG SCH (08:46)
[2017-02-27] MEDS: FAMOTIDINE (20 MG) 20 MG TABLET NG SCH ×2 (08:46→17:24)
[2017-02-27] MEDS: Z GUARD REMEDY 2 OZ OINT TP SCH (08:46)
[2017-02-27] MEDS: CADEXOMER IODINE 40 GM TUBE TP SCH (08:47)
[2017-02-27] MEDS ORDERED: NEOMY SULF/BACITRAC ZN/POLY 15 GM TUBE TP SCH (09:00)
[2017-02-27 09:15] LABS: ABG BASE EXCESS 8.7 mmol/L; ABG OXYGEN SATURATION 97.8 % (92.0-98.5); ABG PH 7.491 (7.350-7.450); ABG PO2 117.9 mmHg (75.0-100.0); AaDO2 116.7 mmHg; COHb 0.8 % (0.5-1.5); MetHb 0.9 % (0.0-1.5); O2Hb 96.1 % (94.0-97.0); PEEP,BG 5 cm H2O; SITE, ABG Right Radial; VT, ABG 450 mL
--- NOTE | 2017-02-27 10:39 | NUR ---
HAND DEICER ELEMENT WINDER NOTE 0720: Received patient obtunded, unable to follow commands. With trache to vent, tolerated settings well. No respiratory distress noted at this time. With Right NGT clamped. SR 70's on the monitor. With JEANNE midline intact. With Ortiz cath intact, noted with clear yellow urine drained to BSD. On isolation precaution for MRSA nares and [place] on sacral wound. Isolation precaution maintained and observed. 0930: S/E by Dr. Seymour, said will try to wean vent settings tomorrow. 1000: GT placed by Dr. Avelar at bedside, patient tolerated well. Will restart GT feeding at 1500. removed NGT. 1030: No any significant changes noted at this time, will continue to monitor.
[2017-02-27] MEDS: BACITRACIN ZINC OINT (15 GM) 15 GM TUBE TP SCH (14:06)
[2017-02-27] MEDS: LOSARTAN POTASSIUM 50 MG TABLET PO SCH (15:08)
[2017-02-27] MEDS: NUTREN PULMONARY 1,000 ML BAG GT PRN (15:09)
--- NOTE | 2017-02-27 17:03 | NUR ---
SHIPPING LEAD PERSON NOTE 7510: S/E by Dr. Schaeffer, made aware with elevated BP, with order to restart home BP meds(Amlodipine, Losartan and Metoprolol), carried out.
[2017-02-27] MEDS: MICAFUNGIN SODIUM 100 MG in IV NS 0.9% 100 ML IV SCH (17:23)
[2017-02-27] MEDS: AMLODIPINE BESYLATE 5 MG TABLET PO SCH (17:24)
--- NOTE | 2017-02-27 20:04 | NUR ---
PT RECEIVED TRACHED ON MECHANICAL VENT W/ SETTINGS PER MD. VENT IN RED OUTLET, AMBUBAG AT BEDSIDE, VENT ALARMS CHECKED AND AUDIBLE. TRACH TUBE SECURE, PATENT. PT SX'ED AND LAVAGED PRN. NO RESP DISTRESS NOTED. PLAN IS TO CONTINUE CARE W/ CURRENT MD ORDERS AND MONITOR FOR CHANGES. Addendum: 02/27/17 at 2003 by WERO LASSITER RT Amended: Links added.
--- NOTE | 2017-02-27 20:23 | NUR ---
POLITICAL THEORY PROFESSOR DF RECEIVED PT TO ICU OVERFLOW ROOM 101 PT TRACH TO VENT TOLERATING CURRENT SETTINGS. RECENTLY HAD TRACHEOSTOMY NO ABNORMAL DRAINAGE/REDNESS NOTED.SITE WITH SUTURES INTACT. PT OBTUNDED NON VERBAL RIGIDNESS NOTED TO BLE.SEVERE WEAKNESS NOTED TO BLE. RESPONSIVE TO TACTILE STIMULI. PT WITH GT TUBE FEEDINGS NUTREN PULMONARY @ 35ML/HR TOLERATING WELL RESIDUALS OF 10ML. TUBE FEEDING STARTED TODAY @ 1800. PT WITH RECENT GT TUBE PLACEMENT SITE WNL TREATED WITH BACTRACIN. VSS. HYPERTENSIVE OF 153/70,161/80 PT HOME ANTIHYPERTENSIVES RESUMED TO BE ADMIN @2100. PT RECENT VANCO TROUGH OF 19 WILL ADMIN VANCO DOSE DUE. Addendum: 02/27/17 at 2029 by LUIS PIERSON RN BP MEDS DUE AM OF 02/28 @0900 PT PREVIOUSLY MEDICATED BY OTILIO KUMAR WILL MONITOR BP Q 30MIN.
[2017-02-27] MEDS ORDERED: SECONDARY IV SET 1 EA INFUS.SET MC ONE (20:53)
[2017-02-27] MEDS: VANCOMYCIN 1 GM in IV D5W 250 ML IV SCH (20:59)
--- NOTE | 2017-02-27 23:15 | NUR ---
CORPORATE COORDINATOR DF @2200 BP ELEVATED AT 175/93 DURING PM CARE.BP RETAKEN WHEN PT COMFORTABLE BP OF 160/80.
[2017-02-28] VITALS (18 sets, daily range): BP systolic 122–179; BP diastolic 58–93
[2017-02-28] MEDS: MEROPENEM 1 G in IV NS 0.9% 100 ML IV SCH ×2 (02:06→14:02)
[2017-02-28 04:49] LABS: EOSINOPHILS # (AUTO) 0.2 /CMM (0.0-0.7); EOSINOPHILS % (AUTO) 1.2 % (0.0-6.0); HEMATOCRIT 28 % (33-45); HEMOGLOBIN 9.4 g/dL (11.5-14.8); LYMPHOCYTES # (AUTO) 0.9 /CMM (0.8-4.8); LYMPHOCYTES % (AUTO) 6.6 % (20.0-44.0); MEAN CORPUSCULAR HEMOGLOBIN 29 PG (26.0-33.0); MEAN CORPUSCULAR HGB CONC 34 g/dl (31.0-36.0); MEAN CORPUSCULAR VOLUME 87 fL (82-100); MONOCYTES # (AUTO) 0.7 /CMM (0.1-1.30); MONOCYTES % (AUTO) 5.4 % (2.0-12.0); NEUTROPHILS % (AUTO) 86.8 % (43.0-81.0); PLATELET COUNT (AUTO) 437 /CMM (150-450); RDW COEFFICIENT OF VARIATION 13.9 (11.5-15.0); RED BLOOD CELL COUNT(AUTO) 3.22 MIL/uL (4.0-5.2); WHITE BLOOD COUNT (AUTO) 13.8 K/uL (4.3-11.0)
[2017-02-28 05:02] LABS: CARBON DIOXIDE 35 mmol/L (21-32); CHLORIDE 106 mmol/L (98-107); CREATININE 0.6 mg/dL (0.6-1.3); GLUCOSE 121 mg/dL (74-106); POTASSIUM 3.3 mmol/L (3.5-5.1); SODIUM SERUM 141 mmol/L (136-145); UREA NITROGEN, BLOOD 20 mg/dL (7-18)
[2017-02-28] MEDS: LEVOTHYROXINE SODIUM 50 MCG TABLET NG SCH (07:33)
--- NOTE | 2017-02-28 07:56 | NUR ---
WOUND CARE CONSULT: PATIENT SEEN FOR REDNESS ON CHEEK, NO DRAINAGE NOTED, SURGICAL TEAM ON CASE. DEFER TO SURGICAL TEAM. WILL SEE PRN.
[2017-02-28] MEDS: FERROUS SULFATE (325 MG) 325 MG/TAB TABLET NG SCH (08:13)
[2017-02-28] MEDS: FAMOTIDINE (20 MG) 20 MG TABLET NG SCH ×2 (08:14→17:28)
[2017-02-28] MEDS: MULTIVITAMINS,THERAGRAN 1 UDTAB TABLET GT SCH (08:14)
[2017-02-28] MEDS: LACTOBACILLUS RHAMNOSUS GG 1 EACH CAP.SPRINK NG SCH ×2 (08:14→17:28)
[2017-02-28] MEDS: LOSARTAN POTASSIUM 50 MG TABLET PO SCH (08:14)
[2017-02-28] MEDS: AMIODARONE HCL 200 MG TABLET NG SCH ×2 (08:15→17:28)
[2017-02-28] MEDS: METOPROLOL SUCCINATE 50 MG TAB.SR.24H PO SCH (08:15)
[2017-02-28] MEDS: AMLODIPINE BESYLATE 5 MG TABLET PO SCH ×2 (08:15→17:28)
[2017-02-28] MEDS: Z GUARD REMEDY 2 OZ OINT TP SCH (08:17)
[2017-02-28] MEDS: CADEXOMER IODINE 40 GM TUBE TP SCH (08:18)
[2017-02-28] MEDS: BACITRACIN ZINC OINT (15 GM) 15 GM TUBE TP SCH (08:28)
[2017-02-28] MEDS: PROSOURCE / PROSTAT (PYXIS) 30 ML UDC GT SCH ×2 (08:33→17:29)
[2017-02-28] MEDS: ACETAMINOPHEN 325 MG TABLET PO PRN (10:28)
[2017-02-28] MEDS ORDERED: POTASSIUM CHLORIDE 20 MEQ POWDER PACKET GT SCH (12:30)
[2017-02-28 14:29] LABS: ABG BASE EXCESS 11.9 mmol/L; ABG OXYGEN SATURATION 97.4 % (92.0-98.5); ABG PCO2 47.3 mmHg (35.0-45.0); ABG PH 7.503 (7.350-7.450); ABG PO2 109.1 mmHg (75.0-100.0); AaDO2 121.7 mmHg; COHb 0.1 % (0.5-1.5); O2Hb 96.3 % (94.0-97.0); SITE, ABG LEFT ARM; VENT MODE, BG cpap 5/ ps 12
--- NOTE | 2017-02-28 14:54 | NUR ---
pt placed on cool aerosol @ 35% [id number] md parks. spo2 98%, hr 74 Addendum: 02/28/17 at 1456 by SANIA LAZO RT Amended: Links added.
[2017-02-28] MEDS: MICAFUNGIN SODIUM 100 MG in IV NS 0.9% 100 ML IV SCH (17:35)
--- NOTE | 2017-02-28 20:10 | NUR ---
[facility]/DEPLOYMENT ENGINEER PT'S 1999 V/S HAD A ELEVATED BLOOD PRESSURE OF 158/88. CALLED MD AMATO FOR PRN ORDERS. PT HAD BEEN GIVEN 1700 MEDICATIONS HOWEVER BLOOD PRESSURE STILL IS ELEVATED. CATAPRES 0.1 MG VIA G/TUBE FOR THIS. PT WILL BE MONITOR FOR FURTHER INTERVENTION IS NEEDED. PT WAS TURNED AND REPOSITIONED FOR COMFORT AND CARE.
[2017-02-28] MEDS: VANCOMYCIN 1 GM in IV D5W 250 ML IV SCH (20:17)
[2017-02-28] MEDS ORDERED: IV NS 0.9% 250 ML IV ONE (20:43)
[2017-02-28] MEDS ORDERED: IV NS 0.9% 250 ML IV PRN ×2 (21:00→21:30)
[2017-02-28] MEDS ORDERED: CLONIDINE HCL 0.1 MG TABLET ONE (21:15)
[2017-02-28] MEDS: CLONIDINE HCL 0.1 MG TABLET PO PRN (21:21)
--- NOTE | 2017-02-28 22:40 | NUR ---
[facility]/ANIMAL TREATMENT INVESTIGATOR PT FELT WARM, SLIGHT TEMPERATURE IN THE 99.8, PT WAS GIVEN A BATH. ALONG WITH ORAL CARE. PT TOLERATED THIS WELL. REMAINS ON CURRENT T-PIECE SETTINGS WITH SATURATION AT 96-97%. PT WAS TURNED AND REPOSITIONED FOR COMFORT AND CARE.
[2017-03-01] VITALS: BP 135/68
--- NOTE | 2017-03-01 00:10 | NUR ---
[facility]/BEHAVIORAL SCHOOL COUNSELORS PT APPEARS TO BE RESPONSIVE TO THE CATAPRES GIVEN AT 1999, BLOOD PRESSURE IS NOW 135/68. PT WAS TURNED AND REPOSITIONED FOR COMFORT AND CARE. WILL CONTINUE TO MONITOR PT'S BLOOD PRESSURE.
[2017-03-01] MEDS: MEROPENEM 1 G in IV NS 0.9% 100 ML IV SCH ×2 (02:21→13:12)
[2017-03-01] MEDS: NUTREN PULMONARY 1,000 ML BAG GT PRN (02:23)
--- NOTE | 2017-03-01 02:45 | NUR ---
[facility]/PROGRAM/MUSIC DIRECTOR PT WAS GIVEN AM CARE, ALONG WITH ORAL CARE. PT TOLERATED THIS WELL. REMAINS CURRENT COOL AEROSOL WITH SATURATION 98-100%. PT WAS TURNED AND REPOSITIONED FOR COMFORT AND CARE.
[2017-03-01 04:00] VITALS: BP 111/55
--- NOTE | 2017-03-01 06:20 | NUR ---
[facility]/CHOCOLATE REFINING ROLLER AM LABS DRAWN, AWAIT RESULTS. PT WAS TURNED AND REPOSITIONED FOR COMFORT AND CARE.
[2017-03-01 07:07] LABS: ALANINE AMINOTRANSFERASE 15 U/L (12-78); ALBUMIN 1.6 g/dL (3.4-5.0); ALKALINE PHOSPHATASE 102 U/L (46-116); ASPARTATE AMINOTRANSFERASE 22 U/L (15-37); BILIRUBIN,TOTAL 0.5 mg/dL (0.2-1.0); CALCIUM, SERUM 9.8 mg/dL (8.5-10.1); CARBON DIOXIDE 34 mmol/L (21-32); CHLORIDE 105 mmol/L (98-107); CREATININE 0.6 mg/dL (0.6-1.3); GLUCOSE 111 mg/dL (74-106); PHOSPHORUS 2.9 mg/dL (2.5-4.9); POTASSIUM 5.4 mmol/L (3.5-5.1); SODIUM SERUM 143 mmol/L (136-145); TOTAL PROTEIN, SERUM 7.2 g/dL (6.4-8.2); UREA NITROGEN, BLOOD 26 mg/dL (7-18)
--- NOTE | 2017-03-01 07:15 | NUR ---
RECEIVED PT. ON BED ON 35% AEROSOL 8 LITERS. .HOB ELEVATED AT 30 DEGREES. MADE PT. COMFORTABLE ON BED. TOTAL CARE PT.ON GT FEEDING OF NUTRA AT 50 ML/HR.NO SIGNS OF ASPIRATION NOTED.WEI IS INTACT. WILL CONTINUE PLAN OF CARE. CARED FOR.
[2017-03-01 08:00] VITALS: BP 129/63
[2017-03-01] MEDS: FERROUS SULFATE (325 MG) 325 MG/TAB TABLET NG SCH (08:13)
[2017-03-01] MEDS: LOSARTAN POTASSIUM 50 MG TABLET PO SCH (08:13)
[2017-03-01] MEDS: FAMOTIDINE (20 MG) 20 MG TABLET NG SCH ×2 (08:13→16:38)
[2017-03-01] MEDS: LEVOTHYROXINE SODIUM 50 MCG TABLET NG SCH (08:13)
[2017-03-01] MEDS: MULTIVITAMINS,THERAGRAN 1 UDTAB TABLET GT SCH (08:13)
[2017-03-01] MEDS: LACTOBACILLUS RHAMNOSUS GG 1 EACH CAP.SPRINK NG SCH ×2 (08:13→16:38)
[2017-03-01] MEDS: AMLODIPINE BESYLATE 5 MG TABLET PO SCH ×2 (08:14→16:38)
[2017-03-01] MEDS: METOPROLOL SUCCINATE 50 MG TAB.SR.24H PO SCH (08:15)
[2017-03-01 08:16] LABS: EOSINOPHILS # (AUTO) 0.2 /CMM (0.0-0.7); EOSINOPHILS % (AUTO) 1.6 % (0.0-6.0); HEMATOCRIT 26 % (33-45); HEMOGLOBIN 8.8 g/dL (11.5-14.8); LYMPHOCYTES % (AUTO) 7.6 % (20.0-44.0); MEAN CORPUSCULAR HEMOGLOBIN 29 PG (26.0-33.0); MEAN CORPUSCULAR HGB CONC 34 g/dl (31.0-36.0); MEAN CORPUSCULAR VOLUME 88 fL (82-100); MONOCYTES # (AUTO) 0.9 /CMM (0.1-1.30); MONOCYTES % (AUTO) 6.9 % (2.0-12.0); NEUTROPHILS % (AUTO) 83.9 % (43.0-81.0); PLATELET COUNT (AUTO) 394 /CMM (150-450); RDW COEFFICIENT OF VARIATION 14.2 (11.5-15.0); RED BLOOD CELL COUNT(AUTO) 3.01 MIL/uL (4.0-5.2); WHITE BLOOD COUNT (AUTO) 13.1 K/uL (4.3-11.0)
[2017-03-01] MEDS: AMIODARONE HCL 200 MG TABLET NG SCH ×2 (08:16→16:37)
[2017-03-01] MEDS: PROSOURCE / PROSTAT (PYXIS) 30 ML UDC GT SCH ×2 (08:17→16:34)
[2017-03-01] MEDS: BACITRACIN ZINC OINT (15 GM) 15 GM TUBE TP SCH (08:18)
[2017-03-01] MEDS: Z GUARD REMEDY 2 OZ OINT TP SCH (08:19)
[2017-03-01] MEDS: CADEXOMER IODINE 40 GM TUBE TP SCH (08:22)
[2017-03-01 08:55] LABS: ABG BASE EXCESS 9.1 mmol/L; ABG OXYGEN SATURATION 97.4 % (92.0-98.5); ABG PCO2 41.3 mmHg (35.0-45.0); ABG PH 7.518 (7.350-7.450); ABG PO2 105.2 mmHg (75.0-100.0); AaDO2 96.3 mmHg; COHb 0.3 % (0.5-1.5); MetHb 0.5 % (0.0-1.5); O2Hb 96.6 % (94.0-97.0); SITE, ABG Left Radial; VENT MODE, BG CA
[2017-03-01 12:00] VITALS: BP 145/80
[2017-03-01 16:00] VITALS: BP 150/83
[2017-03-01] MEDS: MICAFUNGIN SODIUM 100 MG in IV NS 0.9% 100 ML IV SCH (16:34)
[2017-03-01 20:00] VITALS: BP 151/76
[2017-03-01] MEDS: VANCOMYCIN 1 GM in IV D5W 250 ML IV SCH (20:15)
--- NOTE | 2017-03-01 20:40 | NUR ---
[facility]/CLOTH MENDER FAMILY CAME BY TO SEE PT, ASKED ABOUT HOW PT WAS DOING. GAVE UPDATE ASKED ABOUT IF PT WILL PLACED IN HALF-WAY. THEN SAID WILL BE BACK TO SEE SENIOR MAINTENANCE MECHANIC.
--- NOTE | 2017-03-01 22:10 | NUR ---
[facility]/ELECTRONICS DESIGN ENGINEER PT WAS GIVEN PM CARE, ALONG WITH ORAL CARE. PT TOLERATED THIS WELL. REMAINS CURRENT COOL AEROSOL WITH SATURATION 98-100%. PT WAS TURNED AND REPOSITIONED FOR COMFORT AND CARE.
[2017-03-02] VITALS: BP 151/79
--- NOTE | 2017-03-02 01:05 | NUR ---
[facility]/ELECTRONICS TEACHER PT'S 2400 V/S HAD A ELEVATED BLOOD PRESSURE OF 151/78. PRN CATAPRES 0.1 MG VIA G/TUBE FOR THIS. PT WILL BE MONITOR FOR FURTHER INTERVENTION IS NEEDED. PT WAS TURNED AND REPOSITIONED FOR COMFORT AND CARE.
[2017-03-02] MEDS: MEROPENEM 1 G in IV NS 0.9% 100 ML IV SCH ×2 (01:12→13:56)
[2017-03-02] MEDS ORDERED: IV SET PRIMARY PUMP SET 1 EA INFUS.SET MC ONE (01:35)
[2017-03-02] MEDS: NUTREN PULMONARY 1,000 ML BAG GT PRN (01:45)
[2017-03-02] MEDS: IV NS 0.9% 250 ML IV PRN (01:46)
[2017-03-02] MEDS: CLONIDINE HCL 0.1 MG TABLET PO PRN (01:46)
--- NOTE | 2017-03-02 02:54 | NUR ---
[facility]/POLY AREA SUPERVISOR PT APPEARS TO BE RESPONSIVE TO THE CATAPRES GIVEN AT 0200, BLOOD PRESSURE IS NOW 121/65. PT WAS TURNED AND REPOSITIONED FOR COMFORT AND CARE. WILL CONTINUE TO MONITOR PT'S BLOOD PRESSURE.
[2017-03-02 04:00] VITALS: BP 120/51
[2017-03-02 06:38] LABS: EOSINOPHILS # (AUTO) 0.2 /CMM (0.0-0.7); EOSINOPHILS % (AUTO) 1.7 % (0.0-6.0); HEMATOCRIT 27 % (33-45); HEMOGLOBIN 8.9 g/dL (11.5-14.8); LYMPHOCYTES # (AUTO) 1.1 /CMM (0.8-4.8); LYMPHOCYTES % (AUTO) 9.6 % (20.0-44.0); MEAN CORPUSCULAR HEMOGLOBIN 29 PG (26.0-33.0); MEAN CORPUSCULAR HGB CONC 34 g/dl (31.0-36.0); MEAN CORPUSCULAR VOLUME 87 fL (82-100); MONOCYTES # (AUTO) 0.7 /CMM (0.1-1.30); MONOCYTES % (AUTO) 5.9 % (2.0-12.0); NEUTROPHILS # (AUTO) 9.9 /CMM (1.8-8.9); NEUTROPHILS % (AUTO) 82.8 % (43.0-81.0); PLATELET COUNT (AUTO) 360 /CMM (150-450); RDW COEFFICIENT OF VARIATION 14.1 (11.5-15.0); RED BLOOD CELL COUNT(AUTO) 3.04 MIL/uL (4.0-5.2); WHITE BLOOD COUNT (AUTO) 11.9 K/uL (4.3-11.0)
[2017-03-02 07:22] LABS: ALANINE AMINOTRANSFERASE 13 U/L (12-78); ALBUMIN 1.5 g/dL (3.4-5.0); ALKALINE PHOSPHATASE 105 U/L (46-116); ASPARTATE AMINOTRANSFERASE 20 U/L (15-37); BILIRUBIN,TOTAL 0.3 mg/dL (0.2-1.0); CALCIUM, SERUM 9.1 mg/dL (8.5-10.1); CARBON DIOXIDE 35 mmol/L (21-32); CHLORIDE 104 mmol/L (98-107); CREATININE 0.6 mg/dL (0.6-1.3); GLUCOSE 128 mg/dL (74-106); MAGNESIUM 1.9 mg/dL (1.8-2.4); PHOSPHORUS 2.8 mg/dL (2.5-4.9); POTASSIUM 3.5 mmol/L (3.5-5.1); SODIUM SERUM 141 mmol/L (136-145); TOTAL PROTEIN, SERUM 6.7 g/dL (6.4-8.2); UREA NITROGEN, BLOOD 28 mg/dL (7-18)
[2017-03-02 08:00] VITALS: BP 130/68
[2017-03-02] MEDS: LACTOBACILLUS RHAMNOSUS GG 1 EACH CAP.SPRINK NG SCH ×2 (09:01→17:35)
[2017-03-02] MEDS: LOSARTAN POTASSIUM 50 MG TABLET PO SCH (09:02)
[2017-03-02] MEDS: MULTIVITAMINS,THERAGRAN 1 UDTAB TABLET GT SCH (09:03)
[2017-03-02] MEDS: AMLODIPINE BESYLATE 5 MG TABLET PO SCH ×2 (09:03→17:36)
[2017-03-02] MEDS: METOPROLOL SUCCINATE 50 MG TAB.SR.24H PO SCH (09:03)
[2017-03-02] MEDS: FAMOTIDINE (20 MG) 20 MG TABLET NG SCH ×2 (09:04→17:36)
[2017-03-02] MEDS: LEVOTHYROXINE SODIUM 50 MCG TABLET NG SCH (09:04)
[2017-03-02] MEDS: AMIODARONE HCL 200 MG TABLET NG SCH ×2 (09:05→17:36)
[2017-03-02] MEDS: BACITRACIN ZINC OINT (15 GM) 15 GM TUBE TP SCH (09:06)
[2017-03-02] MEDS: CADEXOMER IODINE 40 GM TUBE TP SCH (09:07)
[2017-03-02] MEDS: Z GUARD REMEDY 2 OZ OINT TP SCH (09:12)
--- NOTE | 2017-03-02 09:40 | NUR ---
Received patient from off-going RN; septic, low blood pressure, respirations increasing in rate and depth, gave bolus of 250ml per MD, minimal rise in BP, transferred to ICU per MD order, gave SBAR to STACY Pereira, pending ABG, CXR and EKG reports.
[2017-03-02] MEDS: FERROUS SULFATE (325 MG) 325 MG/TAB TABLET NG SCH (10:57)
[2017-03-02 12:00] VITALS: BP 134/68
[2017-03-02 12:57] LABS: ABG BASE EXCESS 10.2 mmol/L; ABG OXYGEN SATURATION 97.9 % (92.0-98.5); ABG PH 7.517 (7.350-7.450); ABG PO2 122.3 mmHg (75.0-100.0); AaDO2 77.3 mmHg; COHb 0.3 % (0.5-1.5); MetHb 0.5 % (0.0-1.5); O2Hb 97.1 % (94.0-97.0); SITE, ABG Right Radial; VENT MODE, BG CA 35%
[2017-03-02] MEDS ORDERED: SECONDARY IV SET 1 EA INFUS.SET MC ONE (13:15)
[2017-03-02] MEDS: PROSOURCE / PROSTAT (PYXIS) 30 ML UDC GT SCH ×2 (13:56→17:37)
[2017-03-02 16:00] VITALS: BP 140/72
[2017-03-02] MEDS: MICAFUNGIN SODIUM 100 MG in IV NS 0.9% 100 ML IV SCH (17:37)
--- NOTE | 2017-03-02 19:20 | NUR ---
RN INITIAL NOTE RECEIVED PT IN NO ACUTE DISTRESS IN BED. PT IS OBTUNDED IN BED. PT IS ON MECHANICAL VENT VIA TRACH. TRACH SITE IS CLEAN DRY AND INTACT WITH SUTURES IN PLACE. PT TOLERATING VENT SETTING WELL WITH O2 SAT @ 98%. PT NOT SHOWING ANY S/S OF SOB, DIFFICULTY BREATHING OR PAIN AT THIS TIME. PT IS ON TELE WITH SR WITH [employer] ON THE MONITOR. PT HAS GTUBE THAT IS CLEAN DRY INTACT AND PATENT WITH NUTREN @ 40ML/HR AND TOLERATING WELL WITH 0 RESIDUAL. PT HAS JEANNE MIDLINE THAT IS CLEAN DRY INTACT AND PATENT WITH NS @ TKO. BED IN LOW LOCK POSITION WITH RIALS UP X 2. CALL LIGHT WITHIN REACH AND ALL SAFETY MEASURES ENSURED AND CARRIED OUT. WILL CONTINUE TO MONITOR PT.
[2017-03-02 20:00] VITALS: BP 148/80
[2017-03-02] MEDS: VANCOMYCIN 1 GM in IV D5W 250 ML IV SCH (20:33)
--- NOTE | 2017-03-02 23:00 | NUR ---
RN NOTE TRANSFERRED CARE TO [facility] STACY SESAY FOR CONTINUITY OF CARE.
--- NOTE | 2017-03-02 23:00 | NUR ---
BUFFING AND SUEDING MACHINE OPERATOR NOTE TRANSFER OF CARE FROM BLAKE KUMAR. PT IN NO ACUTE DISTRESS AT THIS TIME. ON COOL AEROSOL WITH 8L AND TOLERATING WELL. ISOLATION PRECAUTIONS OBSERVED. WILL CONTINUE TO MONITOR.
[2017-03-03] VITALS: BP 153/82
[2017-03-03] MEDS: NUTREN PULMONARY 1,000 ML BAG GT PRN (02:07)
[2017-03-03] MEDS: MEROPENEM 1 G in IV NS 0.9% 100 ML IV SCH ×2 (02:07→13:29)
[2017-03-03 04:00] VITALS: BP 158/65
[2017-03-03 06:38] LABS: BASOPHILS % (AUTO) 0.1 % (0.0-2.0); EOSINOPHILS # (AUTO) 0.1 /CMM (0.0-0.7); EOSINOPHILS % (AUTO) 0.5 % (0.0-6.0); HEMATOCRIT 30 % (33-45); HEMOGLOBIN 9.7 g/dL (11.5-14.8); LYMPHOCYTES # (AUTO) 0.9 /CMM (0.8-4.8); LYMPHOCYTES % (AUTO) 5.9 % (20.0-44.0); MEAN CORPUSCULAR HEMOGLOBIN 29 PG (26.0-33.0); MEAN CORPUSCULAR HGB CONC 33 g/dl (31.0-36.0); MEAN CORPUSCULAR VOLUME 87 fL (82-100); MONOCYTES % (AUTO) 6.8 % (2.0-12.0); NEUTROPHILS # (AUTO) 12.9 /CMM (1.8-8.9); NEUTROPHILS % (AUTO) 86.7 % (43.0-81.0); PLATELET COUNT (AUTO) 396 /CMM (150-450); RDW COEFFICIENT OF VARIATION 14.1 (11.5-15.0); WHITE BLOOD COUNT (AUTO) 14.8 K/uL (4.3-11.0)
[2017-03-03 06:54] LABS: CALCIUM, SERUM 9.1 mg/dL (8.5-10.1); CARBON DIOXIDE 36 mmol/L (21-32); CHLORIDE 103 mmol/L (98-107); CREATININE 0.6 mg/dL (0.6-1.3); GLUCOSE 124 mg/dL (74-106); POTASSIUM 3.3 mmol/L (3.5-5.1); SODIUM SERUM 143 mmol/L (136-145); UREA NITROGEN, BLOOD 27 mg/dL (7-18)
[2017-03-03 07:12] LABS: FERRITIN 770 ng/mL (8-388)
--- NOTE | 2017-03-03 07:23 | NUR ---
TAR AND AMMONIA PUMP OPERATOR CLOSING NOTE PT REMAINED STABLE DURING SHIFT. NO RESPIRATORY DISTRESS NOTED. ISOLATION PRECAUTIONS OBSERVED. SATING WELL. IV CLEAN AND INTACT. WEI CATHETER IN PLACE. WOUND TREATMENT DONE AND REPOSITIONED Q2H. WILL ENDORSE TO NEXT SHIFT FOR DAVID.
[2017-03-03 08:00] VITALS: BP 178/85
[2017-03-03 08:02] LABS: IRON, SERUM 23 ug/dl (50-175); TOTAL IRON BINDING CAPACITY 165 ug/dl (250-450)
[2017-03-03] MEDS: LEVOTHYROXINE SODIUM 50 MCG TABLET NG SCH (09:11)
[2017-03-03] MEDS: LACTOBACILLUS RHAMNOSUS GG 1 EACH CAP.SPRINK NG SCH ×2 (09:11→17:16)
[2017-03-03] MEDS: FERROUS SULFATE (325 MG) 325 MG/TAB TABLET NG SCH (09:11)
[2017-03-03] MEDS: MULTIVITAMINS,THERAGRAN 1 UDTAB TABLET GT SCH (09:11)
[2017-03-03] MEDS: PROSOURCE / PROSTAT (PYXIS) 30 ML UDC GT SCH ×2 (09:11→17:16)
[2017-03-03] MEDS: AMLODIPINE BESYLATE 5 MG TABLET PO SCH ×2 (09:12→17:16)
[2017-03-03] MEDS: LOSARTAN POTASSIUM 50 MG TABLET PO SCH (09:12)
[2017-03-03] MEDS: FAMOTIDINE (20 MG) 20 MG TABLET NG SCH ×2 (09:12→17:17)
[2017-03-03] MEDS: METOPROLOL SUCCINATE 50 MG TAB.SR.24H PO SCH (09:12)
[2017-03-03] MEDS: AMIODARONE HCL 200 MG TABLET NG SCH ×2 (09:13→17:17)
[2017-03-03] MEDS: BACITRACIN ZINC OINT (15 GM) 15 GM TUBE TP SCH (09:14)
[2017-03-03] MEDS: CADEXOMER IODINE 40 GM TUBE TP SCH (09:14)
[2017-03-03] MEDS: Z GUARD REMEDY 2 OZ OINT TP SCH (09:15)
[2017-03-03] MEDS ORDERED: POTASSIUM CHLORIDE 20 MEQ POWDER PACKET GT SCH (11:30)
[2017-03-03 12:00] VITALS: BP 160/90
[2017-03-03] MEDS: CLONIDINE HCL 0.1 MG TABLET PO PRN ×2 (13:30→20:37)
--- NOTE | 2017-03-03 15:13 | NUR ---
JONA received a call from pt's son informing SW that he needs some information in regards to financial assistance for burials since pt. and the family do not have any money for the expenses that will occur. JONA informed him that she has some information on Funerals/Burials that have a discounted rate along with information to [place] [employer] Att[employer]'s office that offer an indigent fund for cremation only. He requested for JONA to leave the aforementioned information with the gravel roofer in [place]. JONA gave the above information to STACY Thomas to give to gravel roofer Soon for pt's son who will be arriving to the hospital some time this evening.
[2017-03-03 16:00] VITALS: BP 152/81
[2017-03-03] MEDS: MICAFUNGIN SODIUM 100 MG in IV NS 0.9% 100 ML IV SCH (17:13)
[2017-03-03 20:00] VITALS: BP 170/89
[2017-03-03] MEDS: VANCOMYCIN 1 GM in IV D5W 250 ML IV SCH (20:20)
[2017-03-03] MEDS: IV NS 0.9% 250 ML IV PRN (20:37)
[2017-03-03] MEDS: ACETAMINOPHEN 325 MG TABLET PO PRN (20:37)
[2017-03-04] VITALS (7 sets, daily range): BP systolic 114–156; BP diastolic 59–90
[2017-03-04] MEDS: NUTREN PULMONARY 1,000 ML BAG GT PRN (02:49)
[2017-03-04 06:59] LABS: CALCIUM, SERUM 9.2 mg/dL (8.5-10.1); CARBON DIOXIDE 37 mmol/L (21-32); CHLORIDE 104 mmol/L (98-107); CREATININE 0.6 mg/dL (0.6-1.3); GLUCOSE 110 mg/dL (74-106); POTASSIUM 3.6 mmol/L (3.5-5.1); SODIUM SERUM 144 mmol/L (136-145); UREA NITROGEN, BLOOD 31 mg/dL (7-18)
--- NOTE | 2017-03-04 07:00 | NUR ---
RN NOTE RECEIVED PT ON BED , OBTUNDED,ON COOL AEROSOL AT 35%, NO RESPIRATORY DISTRESS NOTED, TRACH CARE DONE, NO SOB NOTED, ON TELE WITH SR WITH PVCS ON THE MONITOR. WEI DRAINING TO GRAVITY , TOLERANT TUBE FEEDING WELL , NO RESIDUAL NOTED, JEANNE MIDLINE SITE CDI, WITH NS @ TKO. BED IN LOWEST AND LOCKED POSITION WITH RIALS UP X 3, . CALL LIGHT WITHIN REACH AND ALL SAFETY MEASURES ENSURED , WILL CONTINUE TO MONITOR PT CLOSELY AND NOTIFY MD FOR ANY SIGNIFICANT CHANGES.
[2017-03-04] MEDS: LEVOTHYROXINE SODIUM 50 MCG TABLET NG SCH (07:59)
[2017-03-04] MEDS: LACTOBACILLUS RHAMNOSUS GG 1 EACH CAP.SPRINK NG SCH ×2 (08:00→16:22)
[2017-03-04] MEDS: METOPROLOL SUCCINATE 50 MG TAB.SR.24H PO SCH (08:00)
[2017-03-04] MEDS: AMLODIPINE BESYLATE 5 MG TABLET PO SCH ×2 (08:00→16:21)
[2017-03-04] MEDS: FAMOTIDINE (20 MG) 20 MG TABLET NG SCH ×2 (08:00→16:22)
[2017-03-04] MEDS: AMIODARONE HCL 200 MG TABLET NG SCH ×2 (08:01→16:22)
[2017-03-04] MEDS: LOSARTAN POTASSIUM 50 MG TABLET PO SCH (08:01)
[2017-03-04] MEDS: FERROUS SULFATE (325 MG) 325 MG/TAB TABLET NG SCH (08:01)
[2017-03-04] MEDS: PROSOURCE / PROSTAT (PYXIS) 30 ML UDC GT SCH ×2 (08:02→16:21)
[2017-03-04] MEDS: MULTIVITAMINS,THERAGRAN 1 UDTAB TABLET GT SCH (08:02)
[2017-03-04] MEDS: CADEXOMER IODINE 40 GM TUBE TP SCH (08:03)
[2017-03-04] MEDS: Z GUARD REMEDY 2 OZ OINT TP SCH (08:04)
[2017-03-04] MEDS: BACITRACIN ZINC OINT (15 GM) 15 GM TUBE TP SCH (08:05)
--- NOTE | 2017-03-04 12:00 | NUR ---
RN NOTES TRACH CARE DONE, TOLERATING TF WELL, NO RESIDUAL NOTED,T=100.2, LETA BUCKLE STRAP PUNCHER NOTIFIED.
[2017-03-04] MEDS: ACETAMINOPHEN 325 MG TABLET PO PRN (13:12)
[2017-03-04 14:23] LABS: APPEARANCE,URINE SL CLOUDY (CLEAR); BILIRUBIN,URINE NEGATIVE (NEGATIVE); BLOOD, URINE 2+ Ery/uL (NEGATIVE); COLOR,URINE YELLOW (YELLOW); KETONES,URINE NEGATIVE (NEGATIVE); LEUKOCYTE ESTERASE ,URINE TRACE (NEGATIVE); NITRITE, URINE NEGATIVE (NEGATIVE); PROTEIN,URINE 1+ mg/dl (NEGATIVE); UGLUCOSE NEGATIVE (NEGATIVE)
[2017-03-04 14:42] LABS: BACTERIA,URINE Few /HPF (None Seen); SQUAMOUS EPITHELIAL CELL,UR Few /HPF (None Seen)
[2017-03-04] MEDS: MICAFUNGIN SODIUM 100 MG in IV NS 0.9% 100 ML IV SCH (16:21)
[2017-03-04] MEDS ORDERED: IV SET PRIMARY PUMP SET 1 EA INFUS.SET MC ONE (16:24)
--- NOTE | 2017-03-04 18:14 | NUR ---
RN NOTES VSS STABLE , RESPIRATION EVEN AND UNLABORED,O2 SAT 98% , R UPPER ARM MIDLINE CDI, SR UP x3, CALL LIGHT WITHIN EASY REACH. PT MEDICATED PER MD ORDER, NO SIGNIFICANT CHANGES NOTED ON THIS SHIFT .
[2017-03-04] MEDS: VANCOMYCIN 1 GM in IV D5W 250 ML IV SCH (20:30)
[2017-03-05] VITALS: BP 142/68
[2017-03-05 04:00] VITALS: BP 153/83
[2017-03-05] MEDS: NUTREN PULMONARY 1,000 ML BAG GT PRN (05:18)
[2017-03-05 07:04] LABS: CALCIUM, SERUM 9.3 mg/dL (8.5-10.1); CARBON DIOXIDE 38 mmol/L (21-32); CHLORIDE 105 mmol/L (98-107); CREATININE 0.6 mg/dL (0.6-1.3); GLUCOSE 121 mg/dL (74-106); POTASSIUM 3.6 mmol/L (3.5-5.1); SODIUM SERUM 146 mmol/L (136-145); UREA NITROGEN, BLOOD 31 mg/dL (7-18)
[2017-03-05 08:00] VITALS: BP 139/76
[2017-03-05] MEDS: MULTIVITAMINS,THERAGRAN 1 UDTAB TABLET GT SCH (09:04)
[2017-03-05] MEDS: FERROUS SULFATE (325 MG) 325 MG/TAB TABLET NG SCH (09:04)
[2017-03-05] MEDS: PROSOURCE / PROSTAT (PYXIS) 30 ML UDC GT SCH ×2 (09:04→17:16)
[2017-03-05] MEDS: FAMOTIDINE (20 MG) 20 MG TABLET NG SCH ×2 (09:04→17:16)
[2017-03-05] MEDS: LACTOBACILLUS RHAMNOSUS GG 1 EACH CAP.SPRINK NG SCH ×2 (09:04→17:16)
[2017-03-05] MEDS: LOSARTAN POTASSIUM 50 MG TABLET PO SCH (09:05)
[2017-03-05] MEDS: AMIODARONE HCL 200 MG TABLET NG SCH ×2 (09:06→17:00)
[2017-03-05] MEDS: LEVOTHYROXINE SODIUM 50 MCG TABLET NG SCH (09:07)
[2017-03-05] MEDS: AMLODIPINE BESYLATE 5 MG TABLET PO SCH ×2 (09:07→17:16)
[2017-03-05] MEDS: METOPROLOL SUCCINATE 50 MG TAB.SR.24H PO SCH (09:07)
[2017-03-05] MEDS: Z GUARD REMEDY 2 OZ OINT TP SCH (09:08)
[2017-03-05] MEDS: BACITRACIN ZINC OINT (15 GM) 15 GM TUBE TP SCH (09:08)
[2017-03-05] MEDS: CADEXOMER IODINE 40 GM TUBE TP SCH (09:09)
[2017-03-05 12:00] VITALS: BP 156/85
[2017-03-05] MEDS: CLONIDINE HCL 0.1 MG TABLET PO PRN (12:45)
[2017-03-05 16:00] VITALS: BP 149/78
[2017-03-05] MEDS ORDERED: IV SET PRIMARY PUMP SET 1 EA INFUS.SET MC ONE (17:06)
[2017-03-05] MEDS: MICAFUNGIN SODIUM 100 MG in IV NS 0.9% 100 ML IV SCH (17:15)
--- NOTE | 2017-03-05 19:30 | NUR ---
MS KUMAR INITIAL NOTES RECEIVED REPORT FROM JEREMIE KUMAR. PATIENT IS OBTUNDED. NO RESPIRATORY DISTRESS NOTED, LUNG SOUNDS RHONCHI. T-PIECE SETTINGS TOLERATING WELL 8L O2 35%. ON TELE SINUS RHYTHM. WEI CATH INTACT, DRAINING YELLOW URINE. BOWEL SOUNDS PRESENT IN ALL QUADRANTS. G-TUBE INTACT W/ FEEDING NUTREN @ 35ML/HR. NO RESIDUAL NOTED. RIGHT UPPER MIDLINE INTACT TKO. BED LOCKED AND IN LOWEST POSITION, SIDE RAILS UP. WILL CONTINUE TO MONITOR.
[2017-03-05 20:00] VITALS: BP 157/83
[2017-03-05] MEDS: VANCOMYCIN 1 GM in IV D5W 250 ML IV SCH (20:13)
[2017-03-05] MEDS ORDERED: IV NS 0.9% 250 ML IV ONE (20:13)
[2017-03-05] MEDS ORDERED: SECONDARY IV SET 1 EA INFUS.SET MC ONE (20:13)
[2017-03-06] VITALS: BP 155/81
[2017-03-06] MEDS: ACETAMINOPHEN 325 MG TABLET PO PRN (00:13)
[2017-03-06 04:00] VITALS: BP 137/76
[2017-03-06 06:44] LABS: CALCIUM, SERUM 9.5 mg/dL (8.5-10.1); CARBON DIOXIDE 37 mmol/L (21-32); CHLORIDE 104 mmol/L (98-107); CREATININE 0.6 mg/dL (0.6-1.3); GLUCOSE 103 mg/dL (74-106); POTASSIUM 3.5 mmol/L (3.5-5.1); SODIUM SERUM 146 mmol/L (136-145); UREA NITROGEN, BLOOD 32 mg/dL (7-18)
--- NOTE | 2017-03-06 07:03 | NUR ---
RN NOTES RECEIVED PT ON BED, OBTUNDED. TRACH DEPENDENT ,RESPIRATION EVEN AND UNLABORED ,NO SOB NOTED, T-PIECE SETTINGS TOLERATING WELL 8L O2 35%. ON TELE SINUS RHYTHM. WEI CATH INTACT, DRAINING YELLOW URINE. G-TUBE WITH NUTREN @ 35ML/HR. NO RESIDUAL NOTED. RIGHT UPPER MIDLINE SITE CDI, BED LOCKED AND IN LOWEST POSITION, SIDE RAILS UP x3, CALL LIGHT WITHIN EASY REACH, WILL CONTINUE TO MONITOR PT CLOSELY AND NOTIFY MD FOR ANY SIGNIFICANT CHANGES .
[2017-03-06 08:00] VITALS: BP 141/80
[2017-03-06] MEDS: LOSARTAN POTASSIUM 50 MG TABLET PO SCH (08:01)
[2017-03-06] MEDS: LEVOTHYROXINE SODIUM 50 MCG TABLET NG SCH (08:01)
[2017-03-06] MEDS: FERROUS SULFATE (325 MG) 325 MG/TAB TABLET NG SCH (08:01)
[2017-03-06] MEDS: LACTOBACILLUS RHAMNOSUS GG 1 EACH CAP.SPRINK NG SCH ×2 (08:01→16:39)
[2017-03-06] MEDS: FAMOTIDINE (20 MG) 20 MG TABLET NG SCH ×2 (08:01→16:39)
[2017-03-06] MEDS: AMLODIPINE BESYLATE 5 MG TABLET PO SCH ×2 (08:02→16:40)
[2017-03-06] MEDS: METOPROLOL SUCCINATE 50 MG TAB.SR.24H PO SCH (08:02)
[2017-03-06] MEDS: AMIODARONE HCL 200 MG TABLET NG SCH ×2 (08:02→16:40)
[2017-03-06] MEDS: MULTIVITAMINS,THERAGRAN 1 UDTAB TABLET GT SCH (08:02)
[2017-03-06] MEDS: BACITRACIN ZINC OINT (15 GM) 15 GM TUBE TP SCH (08:05)
[2017-03-06] MEDS: CADEXOMER IODINE 40 GM TUBE TP SCH (08:05)
[2017-03-06] MEDS: Z GUARD REMEDY 2 OZ OINT TP SCH (08:05)
[2017-03-06] MEDS: PROSOURCE / PROSTAT (PYXIS) 30 ML UDC GT SCH ×2 (08:05→16:39)
[2017-03-06 12:00] VITALS: BP 126/69
[2017-03-06 16:00] VITALS: BP 135/71
[2017-03-06] MEDS: MICAFUNGIN SODIUM 100 MG in IV NS 0.9% 100 ML IV SCH (16:37)
[2017-03-06 16:40] VITALS: BP 135/71
--- NOTE | 2017-03-06 18:30 | NUR ---
RN NOTES CALL RECEIVED FROM [facility] THAT THEY ARE NOT ABLE TO ACCEPT THE PT AND NO ROOM IS AVAILABLE AT THIS TIME .
--- NOTE | 2017-03-06 18:39 | NUR ---
RN NOTES EMT PERONEAL ON THE FLOOR TO TRANSFER THE PT TO [facility] , FORREST MARCIAL NOTIFIED. PT SON DOES NOT WANT PT TO GO TO [facility].
--- NOTE | 2017-03-06 18:43 | NUR ---
RN NOTES CALL RECEIVED FROM THE PT'S SON THAT [facility] AT [facility] IS TRYING TO ARRANGE ROOM FOR THE PT AND WE HAVE TO WAIT TILL WE GET ANSWER FROM [facility] .
--- NOTE | 2017-03-06 18:46 | NUR ---
RN NOTES PT STABLE AT THIS TIME , DISCHARGE PHOTO TAKEN , TRACH CARE DONE, AWAITING FOR A RESPONSE FROM [facility] .
--- NOTE | 2017-03-06 19:00 | NUR ---
RN NOTES FORREST MARCIAL, STATED THAT SHE ALREADY TALKED TO THE SON AND HE AGREED THAT PT CAN GO TO [facility] .
--- NOTE | 2017-03-06 19:35 | NUR ---
RN NOTES PT DISCHARGED TO [facility] VIA AMBULANCE ACCOMPANIED BY EMT PERSONNEL. PT STABLE , NO DISTRESS NOTED, REPORT GIVEN TO EJ RN AT [facility] , PT LEFT THE FLOOR IN STABLE CONDITION, DISCHARGE SKIN PHOTO TAKE. VSS STABLE .
--- NOTE | 2017-03-06 20:06 | NUR ---
RECEIVED PT BEING DISCHARGED, ALL DISCHARGE PAPERWORK COMPLETED BY AM CHARGE NURSE.
== END 2017-03-06 20:37 | disposition short-term general hospital (02) | DRG 4 ==
LOC: ER 07:10 → TELE 09:00 → ICU 02-12 13:03 → TELE-TD 02-13 16:00 → TELE1 02-14 16:48 → ICUOV 02-14 20:41 → ICU 02-16 10:20 → ICUOV 02-26 21:51 → TELE-TD 02-28 14:59 → TELE1 03-01 08:58
PROVIDERS: ADMIT Internal Medicine Nephrology; ATTEND Internal Medicine Nephrology
PROC: 05H633Z Insertion of Infusion Device into Left Subclavian Vein, Percutaneous Approach (ICD-10-PCS; 2017-02-12)
PROC: 0BH17EZ Insertion of Endotracheal Airway into Trachea, Via Natural or Artificial Opening (ICD-10-PCS; principal; 2017-02-16)
PROC: 5A1955Z Respiratory Ventilation, Greater than 96 Consecutive Hours (ICD-10-PCS; 2017-02-16)
PROC: 05H533Z Insertion of Infusion Device into Right Subclavian Vein, Percutaneous Approach (ICD-10-PCS; 2017-02-24)
PROC: 0B110F4 Bypass Trachea to Cutaneous with Tracheostomy Device, Open Approach (ICD-10-PCS; 2017-02-26)
PROC: 30233N1 Transfusion of Nonautologous Red Blood Cells into Peripheral Vein, Percutaneous Approach (ICD-10-PCS; 2017-02-26)
PROC: 0DH63UZ Insertion of Feeding Device into Stomach, Percutaneous Approach (ICD-10-PCS; 2017-02-27)
DX: A41.9 Sepsis, unspecified organism (principal); N17.0 Acute kidney failure with tubular necrosis; G93.40 Encephalopathy, unspecified; E43 Unspecified severe protein-calorie malnutrition; J96.01 Acute respiratory failure with hypoxia; I21.4 Non-ST elevation (NSTEMI) myocardial infarction; J69.0 Pneumonitis due to inhalation of food and vomit; N39.0 Urinary tract infection, site not specified; E87.0 Hyperosmolality and hypernatremia; F03.91 Unspecified dementia, unspecified severity, with behavioral disturbance; B37.49 Other urogenital candidiasis; E03.9 Hypothyroidism, unspecified; E86.0 Dehydration; D64.9 Anemia, unspecified; K21.9 Gastro-esophageal reflux disease without esophagitis; L89.150 Pressure ulcer of sacral region, unstageable; L89.210 Pressure ulcer of right hip, unstageable; L89.521 Pressure ulcer of left ankle, stage 1; L89.511 Pressure ulcer of right ankle, stage 1; L89.620 Pressure ulcer of left heel, unstageable; L89.890 Pressure ulcer of other site, unstageable; E87.6 Hypokalemia; I48.91 Unspecified atrial fibrillation; F09 Unspecified mental disorder due to known physiological condition; I45.81 Long QT syndrome; R53.1 Weakness; R23.8 Other skin changes; Z68.23 Body mass index [BMI] 23.0-23.9, adult; I10 Essential (primary) hypertension; R13.10 Dysphagia, unspecified; Z79.899 Other long term (current) drug therapy; R65.20 Severe sepsis without septic shock
CPT/HCPCS: 31720; 36415; 36569; 36600; 43246; 70450-TC; 71010-TC; 71250-TC; 72192-TC; 74150-TC; 80048-TC; 80053-TC; 80076-TC; 80202-TC; 81000-TC; 82306; 82728-TC; 82803-TC; 82962-TC; 83540-TC; 83605-TC; 83735-TC; 83880; 84100-TC; 84155; 84165; 84439-TC; 84443-TC; 84484-TC; 85025-TC; 85730-TC; 86738; 86850-TC; 86921-TC; 87040-TC; 87070-TC; 87081-TC; 87086-TC; 87186-TC; 87449; 92526; 92611-TC; 93307-TC; 93970-TC; 94002-TC; 94003-TC; 94640-TC; 94760-TC; 94761-TC; 94762-TC; 94799-TC; 99082-TC; A4217; A4606; A6253; A6402; A6403; A7526; J0282; J0696; J1120; J1160; J1644; J1650; J1940; J1956; J2185; J2248; J2543; J2704; J3010; J3370; J3475; J3480; J3490; J7030; J7040; J7050; J7060; J7070; P9016-BL; Z7610